=== PATIENT | male | born 1955 | race Caucasian/White ===

== ENCOUNTER 2016-07-20 11:52 | Emergency (ER) | payer OTHER ==
--- NOTE | 2016-07-20 13:59 | ED ---
Upper Extremity HPI - General Chief Complaint: Extremity Injury, Upper Stated Complaint: Shoulder Injury IHS Time Seen by Provider: 07/20/16 13:39 Source: patient Mode of arrival: ambulatory Limitations: no limitations - History of Present Illness Initial Comments: Patient is a 61-year-old male with a chief complaint of right hand paralysis after an injury on Monday. 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 Patient reports that after that his hand started to become progressively tingling and he feels he is not able to flex or extend his wrist or make a fist with his hand. He states that his right hand does feel slightly colder his left. He reports that he is left- handed. He states that the pain is currently a 1 out of 10. He reports that he is able to feel everything over his hand. He can feel light touch, As well as pain. He denies any other symptoms and relates this hand paralysis directly to his injury with the truck gonsales. He states he is able to abduct shoulder and has full range of motion of elbow. - Related Data Home Medications Medication Instructions Recorded Confirmed Glimepiride [Amaryl] 2 mg PO DAILY 07/20/16 07/20/16 metFORMIN HCL [Glucophage] 500 mg PO DAILY 07/20/16 07/20/16 Allergies Allergy/AdvReac Type Severity Reaction Status Date / Time No Known Allergies Allergy Verified 07/20/16 12:16 Review of Systems ROS Statement: Those systems with pertinent positive or pertinent negative responses have been documented in the HPI. ROS Other: All systems not noted in ROS Statement are negative. Past Medical History Past Medical History: Diabetes Mellitus History of Any Multi-Drug Resistant Organisms: None Reported Past Surgical History: No Surgical Hx Reported Past Psychological History: No Psychological Hx Reported Smoking Status: Current every day smoker Past Alcohol Use History: Occasional Past Drug Use History: None Reported General Exam - General Exam Comments Initial Comments: Pleasant well appearing 61 year old male. no distress. Limitations: no limitations General appearance: alert, in no apparent distress Head exam: Present: atraumatic, normocephalic, normal inspection Eye exam: Present: normal appearance, PERRL, EOMI. Absent: scleral icterus, conjunctival injection, periorbital swelling ENT exam: Present: normal exam, normal oropharynx, mucous membranes moist Neck exam: Present: normal inspection. Absent: tenderness, meningismus, lymphadenopathy Respiratory exam: Present: normal lung sounds bilaterally. Absent: respiratory distress, wheezes, rales, rhonchi, stridor Cardiovascular Exam: Present: regular rate, normal rhythm, normal heart sounds. Absent: systolic murmur, diastolic murmur, rubs, gallop, clicks GI/Abdominal exam: Present: soft, normal bowel sounds. Absent: distended, tenderness, guarding, rebound, rigid Extremities exam: Present: normal inspection, normal capillary refill. Absent: tenderness, pedal edema, joint swelling, calf tenderness Right Upper Arm exam: Present: normal inspection, full ROM Elbow exam: Present: normal inspection, full ROM Forearm Wrist exam: Present: normal inspection. Absent: full ROM (patient denies flexion and extension of elbow. ) Hand Wrist exam: Present: normal inspection. Absent: full ROM (Patient does not have any range of motion or souvenir and novelty maker strength. He does have sensation to light touch and ) Neuro motor exam: Present: other (Able to elicit tricep DTR and brachioradialis DTR. ). Absent: wrist extension intact, thumb opposition intact, thumb IP flexion intact, thumb adduction intact, fingers 2-5 abduction intact Vascular: Present: normal capillary refill Back exam: Present: normal inspection Neurological exam: Present: alert, oriented X3, CN II-XII intact Expanded Patient oriented to: Present: person, place, time Speech: Present: fluid speech Cranial nerves: EOM's Intact: Normal, Gag Reflex: Normal, Tongue Deviation: Normal, Facial Sensation: Normal Cerebellar function: Finger to Nose: Normal Upper motor neuron: Pronator Drift: Normal Motor strength exam: RUE: 4 (Patient has bicep 4/5 bicep strength, 5/5 tricep strength. 0/5 souvenir and novelty maker strengh ), LUE: 5, RLE: 5, LLE: 5 DTR: Bicep (R): 2+, Brachioradialis (R): 2+, Tricep (R): 2+ Eye Response: (4) open spontaneously Motor Response: (6) obeys commands Verbal Response: (5) oriented [place] Total: 15 Psychiatric exam: Present: normal affect, normal mood Skin exam: Present: warm, dry, intact, normal color. Absent: rash Course Vital Signs 03/15/17 03/15/17 12:13 14:39 Temperature 98.3 F 98.0 F Pulse Rate 96 91 Respiratory 16 18 Rate Blood Pressure 132/63 121/65 O2 Sat by Pulse 99 100 Oximetry Medical Decision Making - Medical Decision Making Patient is a 61-year-old male with a chief complaint of right hand paralysis after an injury on Monday. 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 Patient reports that after that his hand started to become progressively tingling and he feels he is not able to flex or extend his wrist or make a fist with his hand. He states that his right hand does feel slightly colder his left. He reports that he is left- handed. He states that the pain is currently a 1 out of 10. He reports that he is able to feel everything over his hand. He can feel light touch, As well as pain. Patient case discussed with Dr. Cifuentes, whom did a face to face interview with the patient. He has no other neurological deficits besides the hand paralysis. I discussed the case with PAMarina. She discussed with Dr. Kingston and they recommend the patient be placed in a volar splint and will see the patient in the morning. Given patients duration of symptoms for 3 days with no other deficits it is likely to be related to the shoulder injury. He agains denies any headache or other complaints and the hand paralysis occured directly after the gonsales fell on his hand. Patient placed in volar splint and advised to have close follow up with orthopedic tomorrow morning. Patient understands treatment plan and will comply. - Radiology Data Radiology results: report reviewed Neck has loss of lordosis, and to colorlate with muscle spasm. Shoulder xray shows calcified tendonopathy. no fracture or dislocation. Disposition Clinical Impression: Paralysis of right hand, Brachial plexus injury Disposition: HOME SELF-CARE Condition: Good Additional Instructions: Patient advised to follow-up with Dr. Cruz on or possibly Dr. Kingston on Monday. Call as soon as possible to make an appointment. Patient denies a take Motrin for irritation. Return to emergency department if any alarming signs or symptoms occur. Referrals: Anthony Nelson MD [Primary Care Provider] - 1-2 days Darrell Cruz MD [STAFF PHYSICIAN] - 1-2 days Rema Kingston DO [Doctor of Osteopathic Medicine] - 1-2 days Time of Disposition: 15:33
--- NOTE | 2016-07-20 14:17 | XR ---
EXAMINATION TYPE: XR shoulder complete RT DATE OF EXAM: 07/20/2016 2:11 PM COMPARISON: NONE HISTORY: Pain TECHNIQUE: Three views are submitted. FINDINGS: The osseous structures are intact. There is no acute fracture or dislocation. The AC joint is mildl y narrowed. There is diffuse osteopenia. Calcification along the greater tuberosity noted. IMPRESSION: 1. Mild AC joint arthropathy. 2. Correlate for calcific tendinosis.
--- NOTE | 2016-07-20 14:22 | XR ---
Cervical spine HISTORY: Neck and right shoulder pain 4 views of the cervical spine No comparisons Cervical vertebral bodies show preserved height, alignment, and bone mineralization. Disc spaces are maintained. Loss of lordosis is noted which may be due to muscle spasm. Prevertebral soft tissues are normal. Calcifications within the soft tissues possibly indicative carotid artery calcifications on the left. There is loss of disc height at C6-7 with associated spondylosis. The patient is edentulous . IMPRESSION: Degenerative disc disease, loss of lordosis may be due to muscle spasm.
[2016-07-20 14:40] VITALS: BP 121/65; PULSE 91; RESP 18; TEMP 98
== END 2016-07-20 15:36 | disposition home or self-care (01) ==
LOC: EC 11:52
DX: S14.3XXA Injury of brachial plexus, initial encounter (principal); S64.91XA Injury of unspecified nerve at wrist and hand level of right arm, initial encounter; E11.9 Type 2 diabetes mellitus without complications; F17.200 Nicotine dependence, unspecified, uncomplicated; Z79.84 Long term (current) use of oral hypoglycemic drugs; Z79.899 Other long term (current) drug therapy; W20.8XXA Other cause of strike by thrown, projected or falling object, initial encounter
CPT/HCPCS: 29125; 72040; 99283

== ENCOUNTER 2016-07-24 12:29 | Inpatient (IN) | payer OTHER ==
[2016-07-24] MEDS ORDERED: SODIUM CHLORIDE 0.9% 1,000 ML IV STA ×4 (13:52→15:45)
[2016-07-24] MEDS ORDERED: SODIUM CHLORIDE 0.9% 500 ML IV STA ×2 (13:52→15:45)
--- NOTE | 2016-07-24 14:01 | ED ---
General Adult HPI - General Chief complaint: Dizziness Stated complaint: MIGHT BE HAVING A REACTION TO MEDS Time Seen by Provider: 07/24/16 13:16 Source: patient, family Mode of arrival: wheelchair Limitations: no limitations - History of Present Illness Initial comments: This is a 61-year-old male here for evaluation of dizziness. Dizziness and falls. Patient medical history consistent for diabetes occasional streaks drinking and smoking. Patient coming in with episodes of dizziness that lead to falls, about 8 times in the last 2 days. He has hit his head. No loss of consciousness. Patient complains of headache and fatigue this point right now. Patient recently had shoulder injury right shoulder injury as he dropped a car that on his right shoulder was started on prednisone, symptoms seem to be around the same time. Patient did start but is Monday stopped taking it on Monday. Patient still feels dizzy at this time, he states during activity or driving walking the room starts to spin around and he collapsed to the ground. - Related Data Home Medications Medication Instructions Recorded Confirmed Glimepiride [Amaryl] 2 mg PO DAILY 07/20/16 07/24/16 metFORMIN HCL [Glucophage] 500 mg PO BID 07/20/16 07/24/16 Ibuprofen [Motrin] 800 mg PO Q6H PRN 07/24/16 07/24/16 Allergies Allergy/AdvReac Type Severity Reaction Status Date / Time No Known Allergies Allergy Verified 07/24/16 13:08 Review of Systems ROS Statement: Those systems with pertinent positive or pertinent negative responses have been documented in the HPI. ROS Other: All systems not noted in ROS Statement are negative. Past Medical History Past Medical History: Diabetes Mellitus History of Any Multi-Drug Resistant Organisms: None Reported Past Surgical History: No Surgical Hx Reported Past Psychological History: No Psychological Hx Reported Smoking Status: Current every day smoker Past Alcohol Use History: Occasional Past Drug Use History: None Reported General Exam - General Exam Comments Initial Comments: NIH of 0, no nystagmus Limitations: no limitations General appearance: alert, in no apparent distress Head exam: Present: atraumatic, normocephalic, normal inspection Eye exam: Present: normal appearance, PERRL, EOMI. Absent: scleral icterus, conjunctival injection, periorbital swelling ENT exam: Present: normal exam, mucous membranes moist Neck exam: Present: normal inspection. Absent: tenderness, meningismus, lymphadenopathy Respiratory exam: Present: normal lung sounds bilaterally. Absent: respiratory distress, wheezes, rales, rhonchi, stridor Cardiovascular Exam: Present: regular rate, normal rhythm, normal heart sounds. Absent: systolic murmur, diastolic murmur, rubs, gallop, clicks GI/Abdominal exam: Present: soft, normal bowel sounds. Absent: distended, tenderness, guarding, rebound, rigid Extremities exam: Present: normal inspection, full ROM, normal capillary refill. Absent: tenderness, pedal edema, joint swelling, calf tenderness Back exam: Present: normal inspection Neurological exam: Present: alert, oriented X3, CN II-XII intact Psychiatric exam: Present: normal affect, normal mood Skin exam: Present: warm, dry, intact, normal color. Absent: rash Course Vital Signs 07/24/16 12:43 Temperature 98.2 F Pulse Rate 103 H Respiratory 16 Rate Blood Pressure 116/69 O2 Sat by Pulse 98 Oximetry - Reevaluation(s) Reevaluation #1: 07/24/16 15:48 Patient remains without focal neurological deficit EKG Findings - EKG Comments: EKG Findings:: EKG shows normal sinus rhythm rate of 83, [place] 218, QRS 114, QTc 420 Medical Decision Making - Medical Decision Making 61 mailed ER for evaluation of chronic falls dizziness worse with ambulation. Patient recently was on steroids, unknown if is medication reaction the patient does have positive CT finding of CVA, patient will be admitted for neurological evaluation regarding possible CVA or age of CVA. He also is dehydrated with high blood sugar, will resuscitate with IV fluids - Lab Data Result diagrams: 07/24/16 14:26 07/24/16 14:26 Lab Results 07/24/16 07/24/16 07/24/16 Range/Units 14:26 14:26 14:26 WBC 9.1 (3.8-10.6) k/uL RBC 4.91 (4.30-5.90) m/uL Hgb 15.7 (13.0-17.5) gm/dL Hct 45.0 (39.0-53.0) % MCV 91.6 (80.0-100.0) fL MCH 31.9 (25.0-35.0) pg MCHC 34.8 (31.0-37.0) g/dL RDW 13.5 (11.5-15.5) % Plt Count 283 (150-450) k/uL Neutrophils % 65 % Lymphocytes % 25 % Monocytes % 5 % Eosinophils % 2 % Basophils % 2 % Neutrophils # 5.9 (1.3-7.7) k/uL Lymphocytes # 2.3 (1.0-4.8) k/uL Monocytes # 0.5 (0-1.0) k/uL Eosinophils # 0.2 (0-0.7) k/uL Basophils # 0.2 (0-0.2) k/uL PT (9.0-12.0) sec INR (<1.1) APTT (22.0-30.0) sec D-Dimer (<0.60) mg/L FEU Sodium 138 (137-145) mmol/L Potassium 5.1 (3.5-5.1) mmol/L Chloride 101 (98-107) mmol/L Carbon Dioxide 27 (22-30) mmol/L Anion Gap 10 mmol/L BUN 23 H (9-20) mg/dL Creatinine 0.70 (0.66-1.25) mg/dL Est GFR (MDRD) Af Amer >60 (>60 ml/min/1.73 sqM) Est GFR (MDRD) Non-Af >60 (>60 ml/min/1.73 sqM) Glucose 376 H (74-99) mg/dL Plasma Lactic Acid Scout (0.7-2.0) mmol/L Calcium 10.0 (8.4-10.2) mg/dL Phosphorus 3.9 (2.5-4.5) mg/dL Magnesium 1.8 (1.6-2.3) mg/dL Total Bilirubin 0.5 (0.2-1.3) mg/dL AST 9 L (17-59) U/L ALT 25 (21-72) U/L Alkaline Phosphatase 165 H (38-126) U/L Total Creatine Kinase <20 L (55-170) U/L CK-MB (CK-2) 0.5 (0.0-2.4) ng/mL CK-MB (CK-2) Rel Index 0.0 Troponin I <0.012 (0.000-0.034) ng/mL Total Protein 7.0 (6.3-8.2) g/dL Albumin 3.9 (3.5-5.0) g/dL 07/24/16 07/24/16 Range/Units 14:26 14:26 WBC (3.8-10.6) k/uL RBC (4.30-5.90) m/uL Hgb (13.0-17.5) gm/dL Hct (39.0-53.0) % MCV (80.0-100.0) fL MCH (25.0-35.0) pg MCHC (31.0-37.0) g/dL RDW (11.5-15.5) % Plt Count (150-450) k/uL Neutrophils % % Lymphocytes % % Monocytes % % Eosinophils % % Basophils % % Neutrophils # (1.3-7.7) k/uL Lymphocytes # (1.0-4.8) k/uL Monocytes # (0-1.0) k/uL Eosinophils # (0-0.7) k/uL Basophils # (0-0.2) k/uL PT 10.3 (9.0-12.0) sec INR 1.0 (<1.1) APTT 24.4 (22.0-30.0) sec D-Dimer 0.19 (<0.60) mg/L FEU Sodium (137-145) mmol/L Potassium (3.5-5.1) mmol/L Chloride (98-107) mmol/L Carbon Dioxide (22-30) mmol/L Anion Gap mmol/L BUN (9-20) mg/dL Creatinine (0.66-1.25) mg/dL Est GFR (MDRD) Af Amer (>60 ml/min/1.73 sqM) Est GFR (MDRD) Non-Af (>60 ml/min/1.73 sqM) Glucose (74-99) mg/dL Plasma Lactic Acid Scout 1.6 (0.7-2.0) mmol/L Calcium (8.4-10.2) mg/dL Phosphorus (2.5-4.5) mg/dL Magnesium (1.6-2.3) mg/dL Total Bilirubin (0.2-1.3) mg/dL AST (17-59) U/L ALT (21-72) U/L Alkaline Phosphatase (38-126) U/L Total Creatine Kinase (55-170) U/L CK-MB (CK-2) (0.0-2.4) ng/mL CK-MB (CK-2) Rel Index Troponin I (0.000-0.034) ng/mL Total Protein (6.3-8.2) g/dL Albumin (3.5-5.0) g/dL - Radiology Data Radiology results: report reviewed (CT brain does show positive CVA), image reviewed Disposition Clinical Impression: Dehydration, Hyperglycemia, Falls, Medication reaction, CVA (cerebral vascular accident) Narrative: CVA of indeterminate age Disposition: ADMITTED IP TO THIS HOSP Condition: Fair Referrals: Anthony Nelson MD [Primary Care Provider] - 1-2 days
[2016-07-24 14:41] LABS: Basophils # (A) 0.2 k/uL (0-0.2); Basophils % (A) 2 %; CH 33.2; CHCM 36.4; Eosinophils # (A) 0.2 k/uL (0-0.7); Eosinophils % (A) 2 %; HDW 2.94; HGB 15.7 gm/dL (13.0-17.5); Luc # (Auto) 0.15; Luc % (Auto) 2; Lymphocytes # (A) 2.3 k/uL (1.0-4.8); Lymphocytes % (A) 25 %; MCH 31.9 pg (25.0-35.0); MCHC 34.8 g/dL (31.0-37.0); MCV 91.6 fL (80.0-100.0); Mean Platelet Volume 8.3; Monocytes # (A) 0.5 k/uL (0-1.0); Monocytes % (A) 5 %; Neutrophils # (A) 5.9 k/uL (1.3-7.7); Neutrophils % (A) 65 %; RBC 4.91 m/uL (4.30-5.90); RDW 13.5 % (11.5-15.5); WBC 9.1 k/uL (3.8-10.6); WBC (Perox) 8.88
[2016-07-24 14:55] LABS: ALT 25 U/L (21-72); AST 9 U/L (17-59); Alkaline Phosphatase 165 U/L (38-126); Anion Gap 10 mmol/L; Blood Urea Nitrogen 23 mg/dL (9-20); Carbon Dioxide 27 mmol/L (22-30); Chloride 101 mmol/L (98-107); Glucose 376 mg/dL (74-99); Magnesium 1.8 mg/dL (1.6-2.3); Non-African American GFR(MDRD) >60 (>60 ml/min/1.73 sqM); Partial Thromboplastin Time 24.4 sec (22.0-30.0); Phosphorous 3.9 mg/dL (2.5-4.5); Potassium 5.1 mmol/L (3.5-5.1); Prothrombin Time 10.3 sec (9.0-12.0); Sodium 138 mmol/L (137-145); Total Bilirubin 0.5 mg/dL (0.2-1.3)
[2016-07-24 15:02] LABS: Creatine Kinase <20 U/L (55-170)
[2016-07-24 15:16] LABS: Creatine Kinase MB 0.5 ng/mL (0.0-2.4); Troponin I <0.012 ng/mL (0.000-0.034)
--- NOTE | 2016-07-24 15:32 | CT ---
EXAMINATION TYPE: CT brain wo con DATE OF EXAM: 07/24/2016 3:18 PM HISTORY: Weakness and Syncopal episode CT DLP: 1165 mGycm. Automated Exposure Control for Dose Reduction was Utilized. TECHNIQUE: CT scan of the head is performed without contrast. COMPARISON: None. FINDINGS: There is no acute intracranial hemorrhage or midline shift identified. There is diffuse v entricular and sulcal prominence consistent with diffuse age-related cerebral atrophy. There is low- attenuation in the periventricular white matter consistent with chronic small vessel ischemic change. There is more vague focal area of low-attenuation high left frontal parietal region on axial image 43 and coronal image 38 consistent with age-indeterminate infarct. There is moderate mucosal thickeni ng and patchy opacification in the bilateral maxillary sinuses. There is mild mucosal thickening invo lving ethmoid sinuses bilaterally. The globes are intact bilaterally. IMPRESSION: 1. No acute intracranial hemorrhage or midline shift. 2. There is mild diffuse age-related cerebral atrophy and mild to moderate chronic small vessel ische guido change noted. 3. Age-indeterminate infarct high left frontoparietal region in which acute/subacute ischemia cannot be excluded. Correlation with old outside study advised. 4. Acute on chronic paranasal sinus disease as noted above.
[2016-07-24] MEDS ORDERED: ASPIRIN 325 MG TAB PO STA (15:44)
[2016-07-24] MEDS ORDERED: IPRATROPIUM-ALBUTEROL 3 ML NEB INHALATION PRN (15:45)
[2016-07-24 15:48] LABS: Appearance,Urine Clear (Clear); Bilirubin,Urine Negative (Negative); Glucose,Urine (UA) 4+ (Negative); Ketones,Urine Negative (Negative); Leukocyte Esterase,Urine Negative (Negative); Nitrite,Urine Negative (Negative); Protein,Urine Negative (Negative); UA Billing (MACRO vs. MICRO) CHEM; Urobilinogen,Urine <2.0 mg/dL (<2.0)
[2016-07-24] MEDS ORDERED: INSULIN LISPRO (humaLOG) 300 UNIT/3 ML VIAL SQ SCH (17:30)
[2016-07-24 17:55] LABS: Glucose,Whole Blood 258 mg/dL (75-99)
[2016-07-24] MEDS ORDERED: ALPRAZolam 0.25 MG TAB PO PRN (19:31)
[2016-07-24] MEDS ORDERED: HYDROcodone/APAP 5-325MG 1 EACH TAB PO PRN (19:31)
--- NOTE | 2016-07-24 19:31 | US ---
EXAMINATION TYPE: US carotid duplex BILAT DATE OF EXAM: 07/24/2016 4:31 PM COMPARISON: NONE CLINICAL HISTORY: Stenosis. dizziness EXAM MEASUREMENTS: RIGHT: Peak Systolic Velocity (PSV) cm/sec ----- Right CCA: 58.4 ----- Right ICA: 52.6 ----- Right ECA: 109.9 ICA/CCA ratio: 0.9 RIGHT: End Diastole cm/sec ----- Right CCA: 13.0 ----- Right ICA: 17.0 ----- Right ECA: 12.8 LEFT: Peak Systolic Velocity (PSV) cm/sec ----- Left CCA: 73.5 ----- Left ICA: 59.2 ----- Left ECA: 95.6 ICA/CCA ratio: 0.8 LEFT: End Diastole cm/sec ----- Left CCA: 16.4 ----- Left ICA: 20.8 ----- Left ECA: 11.5 VERTEBRALS (direction of flow): Right Vertebral: Antegrade Left Vertebral: Antegrade TECHNOLOGIST IMPRESSION: No significant stenosis seen, no elevated velocities, Grayscale images show some intimal hyperplasia bilaterally. No significant focal plaque is seen. IMPRESSION: No hemodynamically significant stenosis is seen in either internal carotid artery.
[2016-07-24] MEDS: NICOTINE 14MG/24HR PATCH TRANSDERM SCH (20:50)
[2016-07-24 21:27] LABS: Glucose,Whole Blood 362 mg/dL (75-99)
[2016-07-24] MEDS: HEPARIN SODIUM,PORCINE 5,000 UNIT/ML 1 ML VIAL SQ SCH (22:29)
[2016-07-24] MEDS: ATORVASTATIN 80 MG TAB PO SCH (22:30)
[2016-07-24] MEDS: PANTOPRAZOLE 40 MG TABLET PO SCH (22:30)
[2016-07-24] MEDS: MELATONIN 3 MG TABLET PO SCH (22:30)
[2016-07-24] MEDS: INSULIN LISPRO (humaLOG) 300 UNIT/3 ML VIAL SQ SCH (22:31)
[2016-07-25 06:00] LABS: Glucose,Whole Blood 175 mg/dL (75-99)
[2016-07-25] MEDS: PANTOPRAZOLE 40 MG TABLET PO SCH (06:42)
[2016-07-25] MEDS: INSULIN LISPRO (humaLOG) 300 UNIT/3 ML VIAL SQ SCH ×4 (06:42→22:19)
[2016-07-25 07:09] LABS: Basophils # (A) 0.1 k/uL (0-0.2); Basophils % (A) 1 %; CH 32.6; CHCM 35.6; Eosinophils # (A) 0.2 k/uL (0-0.7); Eosinophils % (A) 3 %; HCT 41.3 % (39.0-53.0); HDW 3.02; Luc % (Auto) 3; Lymphocytes # (A) 3.5 k/uL (1.0-4.8); Lymphocytes % (A) 48 %; MCH 31.2 pg (25.0-35.0); MCHC 33.8 g/dL (31.0-37.0); MCV 92.2 fL (80.0-100.0); Mean Platelet Volume 7.3; Monocytes # (A) 0.4 k/uL (0-1.0); Monocytes % (A) 5 %; Neutrophils # (A) 2.9 k/uL (1.3-7.7); Neutrophils % (A) 40 %; RBC 4.48 m/uL (4.30-5.90); RDW 13.4 % (11.5-15.5); WBC 7.2 k/uL (3.8-10.6); WBC (Perox) 7.52
[2016-07-25 07:26] LABS: Anion Gap 6 mmol/L; Blood Urea Nitrogen 15 mg/dL (9-20); Calcium 8.7 mg/dL (8.4-10.2); Carbon Dioxide 26 mmol/L (22-30); Chloride 105 mmol/L (98-107); Cholesterol 179 mg/dL (<200); Glucose 184 mg/dL (74-99); HDL Cholesterol 33 mg/dL (40-60); Non-African American GFR(MDRD) >60 (>60 ml/min/1.73 sqM); Potassium 4.2 mmol/L (3.5-5.1); Sodium 137 mmol/L (137-145); Triglycerides 247 mg/dL (<150)
[2016-07-25 08:45] LABS: Hemoglobin A1C 10.1 % (4.2-6.1)
[2016-07-25] MEDS: MULTIVITAMINS, THERA 1 EACH TAB PO SCH (10:41)
[2016-07-25] MEDS: HEPARIN SODIUM,PORCINE 5,000 UNIT/ML 1 ML VIAL SQ SCH ×2 (10:41→22:19)
[2016-07-25] MEDS: NICOTINE 14MG/24HR PATCH TRANSDERM SCH (10:41)
[2016-07-25] MEDS: ASPIRIN 325 MG TAB PO SCH (10:44)
--- NOTE | 2016-07-25 11:06 | ECHOF ---
Referral Reason:[facility] MEASUREMENTS -------- HEIGHT: 182.9 cm WEIGHT: 68.5 kg BP: RVIDd: 2.8 cm (< 3.3) IVSd: 1.0 cm (0.6 - 1.1) LVIDd: 4.8 cm (3.9 - 5.3) LVPWd: 1.0 cm (0.6 - 1.1) IVSs: 1.2 cm LVIDs: 3.7 cm LVPWs: 1.5 cm LA Diam: 3.5 cm (2.7 - 3.8) Ao Diam: 3.0 cm (2.0 - 3.7) AV Cusp: 2.0 cm (1.5 - 2.6) LA Diam: 3.9 cm (2.7 - 3.8) MV EXCURSION: 22.560 mm (> 18.000) MV EF SLOPE: 88 mm/s (70 - 150) EPSS: 1.1 cm MV E Héctor: 0.48 m/s MV DecT: 150 ms MV A Héctor: 0.68 m/s MV E/A Ratio: 0.70 RAP: 5.00 mmHg RVSP: 13.38 mmHg FINDINGS -------- Sinus rhythm. This was a technically adequate study. There is mild concentric left ventricular hypertrophy. Overall left ventricular systolic function is mildly impaired with, an EF between 45 - 50 %. Anterseptal Hypokinesis Septal Hypokinesis The right ventricle is normal in size. The left atrial size is normal. The right atrial size is normal. There is mild aortic valve sclerosis. There is no evidence of aortic regurgitation. The mitral valve leaflets are mildly thickened. Mild mitral regurgitation is present. Mild tricuspid regurgitation present. There is no evidence of pulmonary hypertension. The right ventricular systolic pressure, as measured by Doppler, is 13.38mmHg. There is no pulmonic regurgitation present. The aortic root size is normal. There is no pericardial effusion. CONCLUSIONS -------- 1. There is mild concentric left ventricular hypertrophy. 2. The right ventricular systolic pressure, as measured by Doppler, is 13.38mmHg. 3. Overall left ventricular systolic function is mildly impaired with, an EF between 45 - 50 %. 4. Anterseptal Hypokinesis 5. Septal Hypokinesis 6. There is mild aortic valve sclerosis. 7. The mitral valve leaflets are mildly thickened. 8. Mild mitral regurgitation is present. 9. Mild tricuspid regurgitation present. 10. There is no evidence of pulmonary hypertension. MEASUREMENT OPERATOR: Arlen Bear RDCS
[2016-07-25 12:01] LABS: Glucose,Whole Blood 260 mg/dL (75-99)
[2016-07-25 15:07] VITALS: BMI 20.6
--- NOTE | 2016-07-25 16:35 | HP ---
DATE OF ADMISSION: 07/24/2016 CHIEF COMPLAINT: Difficulty in walking and falling and weakness on right side. HISTORY OF PRESENT ILLNESS: This 61-year-old gentleman with a past medical history of multiple medical problems, including diabetes type 2, history of nicotine dependence being followed by Dr. Nelson in the outpatient setting. 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 The patient came to the ER and subsequently evaluated by [facility]. The patient was receiving p.o. steroids. Today the family noted that the patient is feeling dizzy and patient had falls and apparently the patient fell eight times in the last 2 days. The patient taken to [facility] and admitted to the hospital for further evaluation and treatment. The family also noted some change in mental status and a CAT scan of the brain was noted which showed age related atrophy and age indeterminate infarct in the high left frontoparietal region with acute, subacute ischemia, acute on chronic paranasal sinus is also noted. The patient is slightly dysarthric and unable to give coherent history. Most of the history taken from my discussion with staff and review of the chart and as well as discussion with the family and significant other at bedside. PAST MEDICAL HISTORY: History of diabetes mellitus, History of nicotine dependence. Medications are: 1. Metformin 500 mg b.i.d. 2. Motrin 800 mg q.6h p.r.n. 3. Amaryl 2 mg daily. ALLERGIES: None. FAMILY HISTORY: No history of heart disease or strokes in the family. SOCIAL HISTORY: History of smoking. Continued ongoing. Occasional alcohol intake. REVIEW OF SYSTEMS: Cannot be taken because of change in mental status completely. PHYSICAL EXAM: Patient is conscious, but slightly confused. Oriented x2. Pulse is 83, blood pressure 141/79, respirations 18, temperature 97.1, pulse ox 96% on room air. HEENT: Conjunctivae normal. Oral mucosa moist. NECK: No jugular venous distention. No carotid bruit. No lymph node enlargement. CARDIOVASCULAR: S1, S2 muffled. No S3, no S4. RESPIRATORY: Breath sounds diminished at the bases. A few scattered rhonchi, no crackles. ABDOMEN: Soft, nontender. No mass palpable. No hepatosplenomegaly. Legs: No edema, no swelling. Nervous system: Higher function as mentioned. Cranial nerves II through XII grossly intact. Eye movements are sluggish rather. Otherwise, motor and sensory power is grade upper limits grade 0 and right lower limb grade 3 to 4. Reflexes are diminished. Otherwise gait could not be tested. No sensory abnormalities. SKIN: Examination of the skin no ulcer, rash or bleeding. LYMPHATICS: No lymph nodes palpable in the neck, axillae or groin. JOINTS: No active deforming arthropathy. LABORATORY INVESTIGATION: At this time, CBC within normal limits. Otherwise glucose 376. Hemoglobin A1c is not available. Alkaline phosphatase 165. ASSESSMENT: 1. Acute right-sided hemiplegia caused by left hemispheric stroke in the left frontotemporal region. 2. History of nicotine dependence. 3. Type 2 diabetes mellitus. 4. Increased alkaline phosphatase. 5. Dysarthria secondary to stroke. 6. Gait dysfunction secondary to stroke. 7. Continued ongoing nicotine dependence. 8. FULL CODE. RECOMMENDATIONS AND DISCUSSION: In this 61-year-old gentleman who presented with multiple complex medical issues, we will monitor the patient closely. Continue current medications. Continue symptomatic treatment. We will initiate antiplatelet agents and Lipitor. Otherwise, I would also recommend complete neurovascular workup. Neurology evaluation. PT/OT evaluation. Possible ECF rehab. Prognosis is extremely guarded because of multiple complex medical issues, we will monitor diabetes also. Otherwise discussed with the family who understands and agrees. Further recommendations to follow. A copy of dictation is being forwarded to Dr. Nelson who is the primary care physician.
--- NOTE | 2016-07-25 17:47 | MR ---
EXAMINATION TYPE: MR brain wo/w con DATE OF EXAM: 07/25/2016 5:09 PM COMPARISON: NONE HISTORY: Dizziness, Rt arm numbness CONTRAST: Standard multiplanar, multisequence MRI departmental protocol utilizing 14 mL intravenous MultiHance gadolinium contrast. FINDINGS: There is a 3 x 2 cm gyriform area of increased signal on the FLAIR images in the left parie mervin lobe. There are similar multiple other cortical areas of increased signal in the parietal lobes b ilaterally that measure up to 1.5 cm. There are numerous abnormal high signal foci in the periventric ular white matter. There is no midline shift. There is bilateral involvement of the corpus callosum. The brainstem is intact. There is extensive mucosal thickening in the maxillary ethmoid and frontal s inuses. The contrast images show no pathologic enhancement. There is a 4 mm focus of increased signal in the white matter left anterior temporal lobe and also right anterior temporal lobe. IMPRESSION: Numerous high signal lesions involving the naranjo and white matter of both cerebral hemispheres. I woul d consider a combination of cortical infarcts as well as demyelinating disease and chronic small vess el ischemia. CT scan yesterday shows ischemic changes in the left parietal lobe similar to the findin gs on this exam. Sinusitis. It is unclear if there is a new cortical infarct compared to CT scan yesterday.
[2016-07-25 17:57] LABS: Glucose,Whole Blood 240 mg/dL (75-99)
--- NOTE | 2016-07-25 18:34 | P.PN ---
Subjective Date of service 07/25/2016 Progress note being dictated for Dr. Dixon. Interval history: This is 61-year-old gentleman admitted with acute-subacute right-sided hemiplegia caused by a left hemispheric CVA in the left frontotemporal region in a patient with continued ongoing nicotine dependence and multiple other medical issues. Echo reports Anterseptal, Septal hypokinesis with mildly impaired LV function, EF 45 to 50 %. MRI pending. Carotid Doppler reporting no hemodynamic significant stenosis. Denies chest pain, palpitations or increasing shortness of breath. Remains dysarthric. Review systems unable to obtain as patient dysarthric, with change in mental status. Active Medications Hydrocodone Bitart/Acetaminophen ([place] 5-325) 1 each PO Q6HR PRN PRN Reason: Pain Albuterol/Ipratropium (Duoneb 0.5 Mg-3 Mg/3 Ml Soln) 3 ml INHALATION RT-QID PRN PRN Reason: Shortness Of Breath Or Wheezing Alprazolam (Xanax) 0.25 mg PO TID PRN PRN Reason: Anxiety Aspirin (Aspirin) 325 mg PO DAILY [facility] Last Admin: 07/25/16 10:44 Dose: 325 mg Atorvastatin Calcium (Lipitor) 80 mg PO HS [facility] Last Admin: 07/24/16 22:30 Dose: 80 mg Heparin Sodium (Porcine) (Heparin) 5,000 unit SQ Q12HR [facility] Last Admin: 07/25/16 10:41 Dose: 5,000 unit Insulin Human Lispro (Humalog) 0 unit SQ ACHS [facility] PRN Reason: Protocol Last Admin: 07/25/16 17:47 Dose: 3 unit Melatonin (Melatonin) 3 mg PO HS [facility] Last Admin: 07/24/16 22:30 Dose: 3 mg Multivitamins (Theragran) 1 each PO DAILY@1200 [facility] Last Admin: 07/25/16 10:41 Dose: 1 each Nicotine (Habitrol 14mg/24hr Patch) 1 patch TRANSDERM DAILY [facility] Last Admin: 07/25/16 10:41 Dose: 1 patch Pantoprazole Sodium (Protonix) 40 mg PO AC-BRKFST [facility] Last Admin: 07/25/16 06:42 Dose: 40 mg Objective - Vital Signs Vital signs: Vital Signs Temp 98.1 F 07/25/16 12:00 Pulse 78 07/25/16 12:00 Resp 18 07/25/16 12:00 BP 129/65 07/25/16 12:00 Pulse Ox 100 07/25/16 12:00 Intake & Output 07/24/16 07/25/16 07/25/16 18:59 06:59 18:59 Intake Total 220 615 Balance 220 615 Weight 68.039 kg 68.9 kg 68.9 kg Intake: IV 615 Sodium Chloride 0.9% 1, 615 000 ml @ 100 mls/hr IV . Q10H [facility] Rx#:[id number] Intake, IV Titration 100 Amount Sodium Chloride 0.9% 1, 100 000 ml @ 100 mls/hr IV . Q10H [facility] Rx#:[id number] Oral 120 - Exam PHYSICAL EXAM: VITAL SIGNS: [As above] GENERAL: [Sitting up in bed, mildly confused] HEENT: [Pupils equal conjunctiva normal, right facial droop.] NECK: [Supple, no JVD] RESPIRATORY EFFORT:[] Normal LUNGS: [Bilateral bases diminished, occasional scattered rhonchi, no crackles, no wheezing] CARDIOVASCULAR[regular S1 and S2, no edema] GI: [Abdomen soft, nontender, positive bowel sounds.] PSYCH: [Alert and oriented -2, mood and affect normal.] NEURO: Cranial nerves II through XII grossly intact, mild right facial droop, dysarthric, right upper extremity flaccid-grade 0, right lower extremity grade 3. - Labs CBC & Chem 7: 07/25/16 06:32 07/25/16 06:30 Labs: Abnormal Lab Results - Last 24 Hours (Table) 07/24/16 07/25/16 07/25/16 Range/Units 21:24 05:58 06:30 Creatinine 0.63 L (0.66-1.25) mg/dL Glucose 184 H (74-99) mg/dL POC Glucose (mg/dL) 362 H 175 H (75-99) mg/dL Triglycerides 247 H (<150) mg/dL HDL Cholesterol 33 L (40-60) mg/dL 07/25/16 07/25/16 Range/Units 12:00 17:44 Creatinine (0.66-1.25) mg/dL Glucose (74-99) mg/dL POC Glucose (mg/dL) 260 H 240 H (75-99) mg/dL Triglycerides (<150) mg/dL HDL Cholesterol (40-60) mg/dL Assessment and Plan Plan: 1. [Acute-subacute right-sided hemiplegia caused by a left hemispheric CVA in the left frontotemporal region]. 2. Continued ongoing nicotine dependence]. 3. [Diabetes mellitus type 2]. 4. [Increased alkaline phosphatase]. 5. [Dysarthria secondary to CVA]. 6. [Gait dysfunction secondary to CVA]. 7. Anterseptal, Septal hypokinesis with mildly impaired LV function, EF 45 to 50 % Plan: Continue on current medication regime, statin, antiplatelets, monitoring and symptomatic treatment. MRI pending. Carotid ultrasound reporting no hemodynamic significant stenosis, patient may need a DUGLAS, will discuss with neurology. Neuro consult in place with recommendations pending.PT/OT. Potential ECF rehab at discharge. Prognosis guarded given multiple complex medical issues. The impression and plan of care has been dictated as directed. : I performed a H&P examination of this patient and discussed the same with the dictator. I agree with the dictator's note. Any additional findings/opinions/ etc. will be noted.
[2016-07-25] MEDS ORDERED: NICOTINE 14MG/24HR PATCH TRANSDERM STA (20:01)
[2016-07-25 21:38] LABS: Glucose,Whole Blood 210 mg/dL (75-99)
[2016-07-25] MEDS: ATORVASTATIN 80 MG TAB PO SCH (22:19)
[2016-07-25] MEDS: MELATONIN 3 MG TABLET PO SCH (22:19)
[2016-07-26 06:27] LABS: Basophils # (A) 0.1 k/uL (0-0.2); Basophils % (A) 1 %; CH 32.8; CHCM 36.5; Eosinophils # (A) 0.2 k/uL (0-0.7); Eosinophils % (A) 2 %; HDW 2.96; HGB 14.5 gm/dL (13.0-17.5); Luc # (Auto) 0.14; Luc % (Auto) 2; Lymphocytes # (A) 2.7 k/uL (1.0-4.8); Lymphocytes % (A) 34 %; MCH 31.1 pg (25.0-35.0); MCHC 34.5 g/dL (31.0-37.0); MCV 90.1 fL (80.0-100.0); Mean Platelet Volume 7.6; Monocytes # (A) 0.4 k/uL (0-1.0); Monocytes % (A) 5 %; Neutrophils # (A) 4.6 k/uL (1.3-7.7); Neutrophils % (A) 56 %; RBC 4.66 m/uL (4.30-5.90); RDW 13.1 % (11.5-15.5); WBC 8.1 k/uL (3.8-10.6); WBC (Perox) 8.37
[2016-07-26 06:32] LABS: Glucose,Whole Blood 260 mg/dL (75-99)
[2016-07-26 06:45] LABS: Anion Gap 9 mmol/L; Blood Urea Nitrogen 15 mg/dL (9-20); Carbon Dioxide 25 mmol/L (22-30); Chloride 101 mmol/L (98-107); Glucose 267 mg/dL (74-99); Non-African American GFR(MDRD) >60 (>60 ml/min/1.73 sqM); Potassium 4.4 mmol/L (3.5-5.1); Sodium 135 mmol/L (137-145)
[2016-07-26] MEDS: PANTOPRAZOLE 40 MG TABLET PO SCH (07:05)
[2016-07-26] MEDS: INSULIN LISPRO (humaLOG) 300 UNIT/3 ML VIAL SQ SCH ×5 (07:05→21:24)
[2016-07-26] MEDS: NICOTINE 14MG/24HR PATCH TRANSDERM SCH (08:56)
[2016-07-26] MEDS: MULTIVITAMINS, THERA 1 EACH TAB PO SCH (08:56)
[2016-07-26] MEDS: HEPARIN SODIUM,PORCINE 5,000 UNIT/ML 1 ML VIAL SQ SCH ×2 (08:56→21:23)
[2016-07-26] MEDS: ASPIRIN 325 MG TAB PO SCH (08:58)
--- NOTE | 2016-07-26 09:35 | CONS ---
DATE OF CONSULTATION: 07/25/2016 CHIEF COMPLAINT: Right upper extremity weakness. HISTORY OF PRESENT ILLNESS: Mr. Verdugo is a pleasant 61-year-old male who is being evaluated by the neurology service today on 07/25/2016 per the request of Dr. Dixon for right arm weakness. The patient was brought into [facility] Emergency Room with complaints of weakness in his right upper extremity, which started approximately one week ago. He has also been having some recurrent falls. He did not seek any immediate medical attention, but when his symptoms did not resolve, he was brought into the emergency room. He denies any previous history of strokes and was not on any antiplatelet therapy at home. A CT scan of the brain was done, which showed hypoattenuation in the left frontal parietal region. There was also generalized atrophy and small vessel ischemic changes. He did have an MRI of the brain and the report is still pending, but I did review the images which showed evidence of an acute ischemic infarct involving the left frontal parietal region. There was also extensive small vessel ischemic disease versus severe demyelination. The patient was started on aspirin and admitted for further work-up and management. A carotid Doppler was done, which showed no hemodynamically significant stenosis. His fasting lipid panel showed elevated triglycerides at 247. His CBC and urinalysis were normal. At the time of my evaluation, the patient is sitting up in his bed and appears to be in no acute distress. He denies any changes in his symptoms since his admission. PAST MEDICAL HISTORY: Diabetes. FAMILY HISTORY: Noncontributory. SOCIAL HISTORY: The patient is a current every day smoker. He occasionally drinks alcohol. He denies any drug use. HOME MEDICATIONS: Reviewed in the chart. ALLERGIES: No known drug allergies. REVIEW OF SYSTEMS: As mentioned above and otherwise negative. PHYSICAL EXAM: Vital signs show a temperature of 98.1, pulse 78, respirations 18, blood pressure 129/65. GENERAL APPEARANCE: The patient is a well-developed, elderly male who appears to be in no acute distress. HEENT: Normocephalic, atraumatic, no facial asymmetry is seen. Neck is supple with no masses felt. CARDIOVASCULAR: Regular rate and rhythm. ABDOMEN: Nontender, nondistended. EXTREMITIES: No edema or clubbing. NEUROLOGICAL EXAM: The patient is awake and oriented x3. Speech is slightly dysarthric. Language testing was normal except for slightly reduced fluency. Strength is 2/5 in the right upper extremity, 5-/5 in the right lower extremity, and 5/5 in the left upper and lower extremity. Sensory exam showed diminished light touch sensation on the right upper extremity compared to the left. Cranial nerve testing showed tongue deviation to the right side and was otherwise normal. No seizure-like activity is seen. IMPRESSION: 1. Acute ischemic stroke, left middle cerebral artery distribution. 2. Extensive small vessel ischemic disease. 3. Right upper extremity weakness. 4. Right upper extremity sensory deficit. 5. Tobacco dependence. RECOMMENDATIONS: The patient does appear to have suffered an acute ischemic stroke as mentioned above. He continues to have right hemiparesis which is more severe than the upper extremity. Continue aspirin for antiplatelet therapy. I will consult physical therapy, occupational therapy, and speech therapy. The patient was counseled on tobacco cessation and he is currently on a nicotine patch. Continue the rest of your current work-up and management. I will continue to follow with you. Further recommendations to follow. Thank you for allowing me to participate in the care of your patient. If you have any questions, please feel free to contact me.
--- NOTE | 2016-07-26 10:18 | PN ---
DATE OF SERVICE: 07/25/2016 This 61-year-old gentleman who was admitted with acute right-sided hemiplegia also seen weakness. Seen and evaluated the patient along with the nurse practitioner. Please refer to nurse practitioner notes and impression documented for further information. The ejection fraction was found to be 40% to 50%. I would also recommend a cardiac consultation for possible DUGLAS.
[2016-07-26 11:52] LABS: Glucose,Whole Blood 302 mg/dL (75-99)
[2016-07-26 16:55] LABS: Glucose,Whole Blood 307 mg/dL (75-99)
--- NOTE | 2016-07-26 16:57 | P.PN ---
Subjective Date of service 07/26/2016 Progress note being dictated for Dr. Dixon. Interval history: This is 61-year-old gentleman admitted with acute-subacute right-sided hemiplegia caused by a left hemispheric CVA in the left frontotemporal region in a patient with continued ongoing nicotine dependence and multiple other medical issues. Maintained on aspirin, statin. Carotid Doppler reporting no hemodynamic significant stenosis. Brain MRI reporting numerous high signal lesions involving naranjo and white matter of both cerebral hemispheres, possible cortical infarcts as well as demyelinating disease and chronic small vessel ischemia, possible new cortical infarct compared to prior CT .Evaluated by neurology with recommendations noted. No seizure activity reported .diet intake improved, consuming 75-100%, hyper glycemic.Denies chest pain, palpitations or increasing shortness of breath. Review systems unable to obtain as patient dysarthric, with change in mental status. Active Medications Generic Name Dose Route Start Last Admin Trade Name Freq PRN Reason Stop Dose Admin Hydrocodone Bitart/Acetaminophen 1 each 07/24/16 19:31 [place] 5-325 PO Q6HR PRN Pain Albuterol/Ipratropium 3 ml 07/24/16 15:45 Duoneb 0.5 Mg-3 Mg/3 Ml Soln INHALATION RT-QID PRN Shortness Of Breath Or Wheezing Alprazolam 0.25 mg 07/24/16 19:31 Xanax PO TID PRN Anxiety Aspirin 325 mg 07/25/16 09:00 07/26/16 08:58 Aspirin PO 325 mg DAILY [facility] Administration Atorvastatin Calcium 80 mg 07/24/16 21:00 07/25/16 22:19 Lipitor PO 80 mg HS [facility] Administration Heparin Sodium (Porcine) 5,000 unit 07/24/16 21:00 07/26/16 08:56 Heparin SQ 5,000 unit Q12HR [facility] Administration Insulin Human Lispro 0 unit 07/24/16 21:00 07/26/16 15:43 Humalog SQ Not Given ACHS [facility] Protocol Melatonin 3 mg 07/24/16 21:00 07/25/16 22:19 Melatonin PO 3 mg HS [facility] Administration Multivitamins 1 each 07/25/16 12:00 07/26/16 08:56 Theragran PO 1 each DAILY@1200 [facility] Administration Nicotine 1 patch 07/24/16 19:45 07/26/16 08:56 Habitrol 14mg/24hr Patch TRANSDERM 1 patch DAILY [facility] Administration Pantoprazole Sodium 40 mg 07/24/16 19:45 07/26/16 07:05 Protonix PO 40 mg AC-BRKFST [facility] Administration Objective - Vital Signs Vital signs: Vital Signs Temp 98.8 F 07/26/16 15:53 Pulse 85 07/26/16 15:53 Resp 18 07/26/16 15:53 BP 144/72 07/26/16 15:53 Pulse Ox 97 07/26/16 15:53 Intake & Output 07/25/16 07/26/16 07/26/16 18:59 06:59 18:59 Intake Total 200 Balance 200 Weight 68.9 kg 67.8 kg Intake: Oral 200 - Exam PHYSICAL EXAM: VITAL SIGNS: [As above] GENERAL: [Sitting up at side of bed, no acute distress HEENT: [Pupils equal conjunctiva normal, mild right facial droop.] NECK: [Supple, no JVD,] RESPIRATORY EFFORT: Normal LUNGS: [Bilateral bases diminished, occasional scattered rhonchi, no crackles, no wheezing] CARDIOVASCULAR[regular S1 and S2, no edema] GI: [Abdomen soft, nontender, positive bowel sounds.] PSYCH: [Alert and oriented -2, mood and affect normal.] NEURO: Cranial nerves II through XII grossly intact, mild right facial droop, dysarthric, right upper extremity flaccid-grade 0, right lower extremity grade 3. Diminished sensation in right upper extremity. - Labs CBC & Chem 7: 07/26/16 05:22 07/26/16 05:22 Labs: Abnormal Lab Results - Last 24 Hours (Table) 07/25/16 07/25/16 07/26/16 Range/Units 17:44 21:35 05:22 Sodium 135 L (137-145) mmol/L Glucose 267 H (74-99) mg/dL POC Glucose (mg/dL) 240 H 210 H (75-99) mg/dL 07/26/16 07/26/16 Range/Units 06:31 11:48 Sodium (137-145) mmol/L Glucose (74-99) mg/dL POC Glucose (mg/dL) 260 H 302 H (75-99) mg/dL Assessment and Plan Plan: 1. [Acute-subacute right-sided hemiplegia caused by a left hemispheric CVA in the left frontotemporal region]. Extensive small vessel ischemic disease. 2. Continued ongoing nicotine dependence]. 3. [Diabetes mellitus type 2]. 4. [Increased alkaline phosphatase]. 5. [Dysarthria secondary to CVA]. 6. [Gait dysfunction secondary to CVA]. 7. Anterseptal, Septal hypokinesis with mildly impaired LV function, EF 45 to 50 % Plan: Continue on current medication regime, statin, aspirin, monitoring and symptomatic treatment. No DUGLAS recommended per neurology at this time as per staff. Diet intake much improved, consuming 75-100%, oral hypoglycemics resumed. Close monitoring of Accu-Cheks. Smoking cessation readdressed .Discharge planning for ECF rehab tomorrow -discussed with both patient and family. They verbalized understanding of and agreement with plan. Transfer to [facility] with remote telemetry. The impression and plan of care has been dictated as directed. : I performed a H&P examination of this patient and discussed the same with the dictator. I agree with the dictator's note. Any additional findings/opinions/ etc. will be noted.
[2016-07-26] MEDS: GLIMEPIRIDE 2 MG TAB PO SCH (17:21)
[2016-07-26] MEDS: metFORMIN 500 MG TAB PO SCH (17:21)
--- NOTE | 2016-07-26 17:43 | P.PN ---
Subjective Principal diagnosis: Stroke This is a 61-year-old male continue be evaluated by the neurology service. He presented with her right arm weakness. He had also been having some falls. He did not seek immediate medical attention. Initial computed tomography scan of the brain showed hypoattenuation in the left frontal parietal lobe. It also showed some generalized atrophy and small vessel ischemic changes. A subsequent MRI showed numerous high signal lesions in the naranjo and white matter both cerebral hemispheres. Consideration was given to a combination of cortical infarcts and demyelinating needing disease and chronic small vessel ischemia. There was also a similar finding of ischemic changes consistent with the previous day's CT in the left parietal lobe. He denies any new symptoms. At time my evaluation he is resting comfortably in bed eating a bag of chips. His carotid Doppler showed no hemodynamically snug against stenosis. Objective - Vital Signs Vital signs: Vital Signs Temp 98.8 F 07/26/16 15:53 Pulse 85 07/26/16 15:53 Resp 18 07/26/16 15:53 BP 144/72 07/26/16 15:53 Pulse Ox 97 07/26/16 15:53 Intake & Output 07/25/16 07/26/16 07/26/16 18:59 06:59 18:59 Intake Total 200 Balance 200 Weight 68.9 kg 67.8 kg Intake: Oral 200 - Constitutional General appearance: Present: no acute distress, thin - EENT Eyes: Present: PERRLA. Absent: abnormal pupil, ptosis ENT: Present: hearing grossly normal - Neck Neck: Present: normal ROM - Respiratory Respiratory: negative: prolonged expiration, prolonged inspiration - Cardiovascular Rhythm: regular - Gastrointestinal General gastrointestinal: Absent: distended, tenderness - Neurologic Neurologic Comment(s): Patient is alert awake and oriented 3. Speech continues to be slightly dysarthric. Fluency is still mildly impaired. Strength remains to a 5 in the right upper extremity and 5 minus out of 5 in the right lower extremity. No left-sided weakness is appreciated. There is sensory deficit of the right upper extremity. She continues to have tongue deviation to the right side. No tremors or seizure-like activities are seen. - Labs CBC & Chem 7: 07/26/16 05:22 07/26/16 05:22 Labs: Abnormal Lab Results - Last 24 Hours (Table) 07/25/16 07/25/16 07/26/16 Range/Units 17:44 21:35 05:22 Sodium 135 L (137-145) mmol/L Glucose 267 H (74-99) mg/dL POC Glucose (mg/dL) 240 H 210 H (75-99) mg/dL 07/26/16 07/26/16 07/26/16 Range/Units 06:31 11:48 16:43 Sodium (137-145) mmol/L Glucose (74-99) mg/dL POC Glucose (mg/dL) 260 H 302 H 307 H (75-99) mg/dL Assessment and Plan (1) Hyperlipidemia Status: Chronic (2) CVA (cerebral vascular accident) Status: Acute (3) Falls Status: Acute (4) Hyperglycemia Status: Chronic (5) Paralysis of right hand Status: Acute Plan: The patient does appear to have suffered an acute ischemic stroke of the left middle cerebral artery distribution. He has persistent right upper extremity weakness. He will continue aspirin 325 mg Lipitor 80 mg physical therapy and occupational therapy will continue to work with him speech therapy is also evaluating. He is again counseled strongly on tobacco cessation. Due to his MRI findings of possible multifocal lacunar infarcts, I will order cardiology consult for evaluation for transesophageal echocardiogram to rule out an embolic source. We will continue to follow and make further recommendations as needed. I have performed a history and physical on the above patient. I have reviewed the above note, and agree.
--- NOTE | 2016-07-26 18:08 | CONS ---
DATE OF CONSULTATION: CHIEF COMPLAINT: CVA. Nahum is a 61-year-old gentleman with history of [id number] diabetes who presented to hospital with difficulty in walking and falling with weakness on the right side. His neurological work-up showed evidence of multiple strokes due to which Cardiology had been consulted for possible DUGLAS. He denies chest pain, difficulty in breathing, palpitations, dizziness, or syncope. An echocardiogram on this admission showed LV systolic dysfunction with an ejection fraction of 45 to 50% secondary to anteroseptal myocardial infarction. At the time of my evaluation, patient is comfortable at rest and is free of symptoms. Past medical history significant for dis-wvzciwu-fapnzbzao diabetes. ALLERGIES: No known drug allergies. MEDICATIONS: Include Glucophage 500 b.i.d. along with Amaryl and Motrin. FAMILY HISTORY: Negative for premature coronary artery disease. SOCIAL HISTORY: Negative for smoking, EtOH abuse or drug abuse. REVIEW OF SYSTEMS: HEENT: Unremarkable. CARDIAC: As described above. RESPIRATORY: As described above. GI: Negative. GENITOURINARY: Negative. ALLERGY: Negative. SKIN: Negative. MUSCULOSKELETAL: Significant for arthritis. PSYCHOSOCIAL: Negative. ENDOCRINE: Negative. DERM: Negative. CONSTITUTIONAL: Negative. RECORDS MANAGEMENT SPECIALIST: As described above. On exam, comfortable at rest. Vital signs are stable. There is no jugular venous distention. Chest exam reveals good air entry bilaterally. Heart exam reveals first and second heart sounds. No gallop. No murmur, no rub. Abdomen is soft, nontender. Exam of the extremities did not reveal edema. Peripheral pulses are felt. ASSESSMENT: Cerebrovascular accident, rule out cardiac source for thromboembolic phenomenon. PLAN: I will do DUGLAS on him tomorrow.
[2016-07-26 20:43] LABS: Glucose,Whole Blood 192 mg/dL (75-99)
[2016-07-26] MEDS: INSULIN GLARGINE 100 UNIT/ML 10 ML VIAL SQ SCH (21:23)
[2016-07-26] MEDS: ATORVASTATIN 80 MG TAB PO SCH (21:23)
[2016-07-26] MEDS: MELATONIN 3 MG TABLET PO SCH (21:24)
--- NOTE | 2016-07-27 06:10 | PN ---
DATE OF SERVICE: 07/26/2016 This 61-year-old gentleman who was admitted with multiple medical problems had significant stroke is being closely monitored. The possibility of DUGLAS was considered, but at this time Neurology feels like single lesion. DUGLAS is not indicated. Sugar was elevated. Seen and evaluated the patient along with the nurse practitioner. Please refer to nurse practitioner notes and impression documented for further information. The patient is on metformin at this time. I would also recommend Lantus 20 units also. Hemoglobin A1c 10.1. Continue to monitor. Further recommendations to follow.
[2016-07-27 06:23] LABS: Basophils # (A) 0.1 k/uL (0-0.2); Basophils % (A) 1 %; CH 32.8; CHCM 36.5; Eosinophils # (A) 0.2 k/uL (0-0.7); Eosinophils % (A) 2 %; HCT 43.8 % (39.0-53.0); HDW 2.92; HGB 15.2 gm/dL (13.0-17.5); Luc # (Auto) 0.27; Luc % (Auto) 3; Lymphocytes # (A) 2.6 k/uL (1.0-4.8); Lymphocytes % (A) 26 %; MCH 31.3 pg (25.0-35.0); MCHC 34.7 g/dL (31.0-37.0); MCV 90.3 fL (80.0-100.0); Mean Platelet Volume 7.5; Monocytes # (A) 0.6 k/uL (0-1.0); Monocytes % (A) 6 %; Neutrophils # (A) 6.3 k/uL (1.3-7.7); Neutrophils % (A) 64 %; RBC 4.85 m/uL (4.30-5.90); RDW 13.3 % (11.5-15.5); WBC 9.9 k/uL (3.8-10.6); WBC (Perox) 10.34
[2016-07-27 06:28] LABS: Glucose,Whole Blood 221 mg/dL (75-99)
[2016-07-27 06:38] LABS: Anion Gap 7 mmol/L; Blood Urea Nitrogen 19 mg/dL (9-20); Calcium 9.3 mg/dL (8.4-10.2); Carbon Dioxide 25 mmol/L (22-30); Chloride 103 mmol/L (98-107); Glucose 194 mg/dL (74-99); Non-African American GFR(MDRD) >60 (>60 ml/min/1.73 sqM); Potassium 4.8 mmol/L (3.5-5.1); Sodium 135 mmol/L (137-145)
[2016-07-27] MEDS: INSULIN LISPRO (humaLOG) 300 UNIT/3 ML VIAL SQ SCH ×7 (08:50→21:14)
[2016-07-27] MEDS: ASPIRIN 325 MG TAB PO SCH (08:51)
[2016-07-27] MEDS: metFORMIN 500 MG TAB PO SCH ×2 (08:51→18:39)
[2016-07-27] MEDS: GLIMEPIRIDE 2 MG TAB PO SCH (08:51)
[2016-07-27] MEDS: PANTOPRAZOLE 40 MG TABLET PO SCH (08:52)
[2016-07-27] MEDS: NICOTINE 14MG/24HR PATCH TRANSDERM SCH (09:00)
[2016-07-27] MEDS: HEPARIN SODIUM,PORCINE 5,000 UNIT/ML 1 ML VIAL SQ SCH ×2 (09:00→20:34)
[2016-07-27] MEDS ORDERED: fentaNYL (PF) 50 MCG/ML 2 ML AMP ONE (09:40)
[2016-07-27] MEDS ORDERED: MIDAZOLAM 2 MG/2 ML VIAL ONE (09:40)
[2016-07-27] MEDS ORDERED: IV FLUID CONTINUATION 1,000 ML IV ONE (09:45)
--- NOTE | 2016-07-27 09:53 | P.CONS ---
History of Present Illness - Chief Complaint gait disturbance, right hemiparesthesias - History of Present Illness I had the opportunity to see patient for inpatient rehab consultation with regard to her gait disturbance. Significant other reports a history of 8 falls within 1-2 days prior to admission. Noted to be weak on the right side especially the arm. Head CT demonstrated age-related changes as well as multiple infarcts including left frontal area as well as sinus disease. Carotid Doppler negative. Brain MRI demonstrated numerous lesions as well as chronic change. DUGLAS pending today. Speech therapy working on higher level language tasks. OT reports modified independent with basic self-care tasks. PT ordered. Previous functional history, as elicited from patient corroborative by significant other: 69-year-old left-handed white male who lives in one floor home with significant other. 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 Smokes 2 pack a day but doesn 't drink or do regression drugs. Independent including standing shower. Significant other does the cooking and laundry. Regular doctors Dr. Krishnamurthy. Family history diabetes in mother and stroke in father. Review of Systems Review of systems: ENT: Denies sneezes or discharge. Eyes: Denies discharge or photophobia. Cardiac: Denies chest pain or palpitation. Pulmonary: Denies cough or shortness of breath. Gastrointestinal: Denies nausea, emesis, constipation, diarrhea. Genitourinary: Denies discharge or frequency. Musculoskeletal: Denies muscle or bone aches. Neurologic: right-sided weakness especially arm. History of recent multiple falls. Endocrine: Denies shakes or sweats. Oncology: Denies cancers. Dermatologic: Denies rash, itching, pruritus. ALLERGY/immunology: Denies sneezes, rashes. Past Medical History Past Medical History: Diabetes Mellitus History of Any Multi-Drug Resistant Organisms: None Reported Past Surgical History: No Surgical Hx Reported Past Psychological History: No Psychological Hx Reported Smoking Status: Current every day smoker Past Alcohol Use History: Occasional Past Drug Use History: None Reported Medications and Allergies Home Medications Medication Instructions Recorded Confirmed Type Glimepiride [Amaryl] 2 mg PO DAILY 07/20/16 07/24/16 History metFORMIN HCL [Glucophage] 500 mg PO BID 07/20/16 07/24/16 History Ibuprofen [Motrin] 800 mg PO Q6H PRN 07/24/16 07/24/16 History Allergies Allergy/AdvReac Type Severity Reaction Status Date / Time No Known Allergies Allergy Verified 07/24/16 13:08 Physical Exam Vitals: Vital Signs Temp Pulse Resp BP Pulse Ox 07/27/16 08:59 94 L 07/27/16 03:03 98.2 F 95 16 107/59 94 L 07/27/16 00:00 98.2 F 90 16 112/54 96 07/26/16 19:43 99 F 90 16 116/62 96 07/26/16 15:53 98.8 F 85 18 144/72 97 07/26/16 12:00 99.0 F 88 18 136/63 99 Intake and Output 07/26/16 07/27/16 07/27/16 22:59 06:59 14:59 Other: Voiding Method Toilet Toilet Urinal Urinal # Voids 0 0 Weight 66.1 kg Skin: Good color, texture, turgor. General: Medium build, wiry and comfortable appearance. Head: Normocephalic, atraumatic. Eyes: Symmetric. Pupils equal round. Ears: Symmetric. Hearing within normal limits. Mouth: Clear. Neck: Supple. Carotid without bruit. Cardiac: Regular rate and rhythm. Lungs: Clear anteriorly and posteriorly. Abdomen: Soft active nontender. Extremities: Normal tone. Neurological: Mental status: Alert, cooperative, pleasant. Cranial nerves: Symmetric facial tone and trapezius. Motor: Normal strength and isolation left arm and leg. Right arm with at best 4 /5 strength, 2/5 at hand. Right leg with isolation throughout but apraxic.. Sensation: Intact throughout. DTRs: Symmetric and equal throughout. Mobility: Sits and stands with5% minimal assistance, apraxia of gait. Results CBC & Chem 7: 07/27/16 05:37 07/27/16 05:37 Labs: Abnormal Lab Results - Last 24 Hours (Table) 07/26/16 07/26/16 07/26/16 Range/Units 11:48 16:43 20:31 Sodium (137-145) mmol/L Glucose (74-99) mg/dL POC Glucose (mg/dL) 302 H 307 H 192 H (75-99) mg/dL 07/27/16 07/27/16 Range/Units 05:37 06:23 Sodium 135 L (137-145) mmol/L Glucose 194 H (74-99) mg/dL POC Glucose (mg/dL) 221 H (75-99) mg/dL CT Scan - head: report reviewed (age-related change including multiple lesions especially left frontal. Sinus disease.) MRI - head: report reviewed (numerous punctate lesions as well as chronic changes.) Assessment and Plan (1) CVA (cerebral vascular accident) Status: Acute Plan: impression: 1. Gait disturbance. 2. Right hemiparesthesias. 3. Diabetes. Comments and plan: At this time PT, OT, ENGINEERING OFFICER, ordered an ongoing. OT reports the patient modified independent with basic self-care tasks including mobility. We'll follow closely with yourself for safety concerns that may present himself after a couple days of admission, PT and OT notes.
[2016-07-27] MEDS ORDERED: BENZOCAINE SPRAY 100 APPLIC/CAN MUCOUS MEM ONE (09:55)
[2016-07-27] MEDS ORDERED: MIDAZOLAM 2 MG/2 ML VIAL IV ONE (10:01)
--- NOTE | 2016-07-27 10:36 | ECHOT ---
DATE OF SERVICE: INDICATION: CVA to rule out cardiac source of thromboembolic phenomenon. PROCEDURE NOTE: After obtaining informed consent, transesophageal echocardiogram is performed in the left lateral position using an Omni plane probe. Local and IV sedation were obtained using Xylocaine spray, intravenous Versed. Patient tolerated the procedure well without any obvious immediate complications. FINDINGS: 1. There is no intracardiac thrombus within the left atrium, right atrium, right ventricle or left atrial appendage. 2. Mitral valve is anatomically normal. There is trace mitral regurgitation noted. 3. Aortic valve is free of stenosis or regurgitation. 4. Tricuspid valve shows mild tricuspid regurgitation. 5. Left ventricle has normal size and systolic function. 6. Aorta shows mild atherosclerotic changes. 7. There is no evidence of ascending aortic aneurysm. 8. Intra-atrial septum: There is no evidence of [id number]-[id number] shunt by agitated saline contrast study or sdvr-[id number] shunt by color flow Doppler. CONCLUSION: 1. No intracardiac thrombus. 2. Normal left ventricular function. 3. No evidence of shunting across intra-atrial septum.
[2016-07-27 11:43] LABS: Glucose,Whole Blood 206 mg/dL (75-99)
[2016-07-27] MEDS: SODIUM CHLORIDE 0.9% 1,000 ML IV SCH (12:04)
[2016-07-27] MEDS: MULTIVITAMINS, THERA 1 EACH TAB PO SCH (12:06)
[2016-07-27 16:39] LABS: Glucose,Whole Blood 183 mg/dL (75-99)
--- NOTE | 2016-07-27 17:12 | P.PN ---
Subjective Principal diagnosis: Stroke This is a 61-year-old male continue be evaluated by the neurology service. He presented with her right arm weakness. He had also been having some falls. He did not seek immediate medical attention. Initial computed tomography scan of the brain showed hypoattenuation in the left frontal parietal lobe. It also showed some generalized atrophy and small vessel ischemic changes. A subsequent MRI showed numerous high signal lesions in the naranjo and white matter both cerebral hemispheres. Consideration was given to a combination of cortical infarcts and demyelinating disease and chronic small vessel ischemia. There was also a similar finding of ischemic changes consistent with the previous day's CT in the left parietal lobe. He denies any new symptoms. At time my evaluation he is siting in his bedside chair. His carotid Doppler showed no hemodynamically snug against stenosis. Transesophageal echocardiogram showed no thrombus. Objective - Vital Signs Vital signs: Vital Signs Temp 97.6 F 07/27/16 10:26 Pulse 87 07/27/16 10:41 Resp 18 07/27/16 10:41 BP 105/68 07/27/16 10:41 Pulse Ox 100 07/27/16 10:41 Intake & Output 07/26/16 07/27/16 07/27/16 18:59 06:59 18:59 Intake Total 100 Output Total 0 Balance 100 Weight 66.1 kg Intake: Oral 100 Output: Urine 0 Other: Voiding Method Toilet Toilet Urinal Urinal # Voids 1 0 - Constitutional General appearance: Present: average body habitus - EENT Eyes: Present: EOMI, PERRLA. Absent: abnormal pupil, ptosis ENT: Present: hearing grossly normal - Neck Neck: Present: normal ROM. Absent: rigidity - Respiratory Respiratory: negative: prolonged expiration, prolonged inspiration - Cardiovascular Rhythm: regular - Neurologic Neurologic Comment(s): Patient is alert and area 3. Speech remains mildly dysarthric. Strength in his right upper extremity has improved minimally since yesterday. Otherwise strength in other extremities is full. No tremors or seizure-like activities are seen. - Labs CBC & Chem 7: 07/27/16 05:37 07/27/16 05:37 Labs: Abnormal Lab Results - Last 24 Hours (Table) 07/26/16 07/27/16 07/27/16 Range/Units 20:31 05:37 06:23 Sodium 135 L (137-145) mmol/L Glucose 194 H (74-99) mg/dL POC Glucose (mg/dL) 192 H 221 H (75-99) mg/dL 07/27/16 07/27/16 Range/Units 11:42 16:35 Sodium (137-145) mmol/L Glucose (74-99) mg/dL POC Glucose (mg/dL) 206 H 183 H (75-99) mg/dL Assessment and Plan (1) Hyperlipidemia Status: Chronic (2) CVA (cerebral vascular accident) Status: Acute (3) Falls Status: Acute (4) Hyperglycemia Status: Chronic (5) Paralysis of right hand Status: Acute Plan: The patient does appear to have suffered an acute ischemic stroke of the left middle cerebral artery distribution. He has persistent right upper extremity weakness. He will continue aspirin 325 mg Lipitor 80 mg, physical therapy and occupational therapy will continue to work with him. speech therapy is also evaluating. He is again counseled strongly on tobacco cessation. He is cleared from a neurological standpoint I have performed a history and physical on the above patient. I have reviewed the above note, and agree.
[2016-07-27] MEDS: ATORVASTATIN 80 MG TAB PO SCH (20:34)
[2016-07-27] MEDS: MELATONIN 3 MG TABLET PO SCH (20:34)
[2016-07-27 21:05] LABS: Glucose,Whole Blood 163 mg/dL (75-99)
[2016-07-27] MEDS: INSULIN GLARGINE 100 UNIT/ML 10 ML VIAL SQ SCH (21:13)
[2016-07-28 07:01] LABS: Glucose,Whole Blood 183 mg/dL (75-99)
[2016-07-28 07:41] VITALS: BP 101/62; PULSE 80; RESP 16; TEMP 97
[2016-07-28] MEDS: PANTOPRAZOLE 40 MG TABLET PO SCH (08:31)
[2016-07-28] MEDS: GLIMEPIRIDE 2 MG TAB PO SCH (08:31)
[2016-07-28] MEDS: INSULIN LISPRO (humaLOG) 300 UNIT/3 ML VIAL SQ SCH ×2 (08:31)
[2016-07-28] MEDS: metFORMIN 500 MG TAB PO SCH (08:31)
[2016-07-28] MEDS: ASPIRIN 325 MG TAB PO SCH (08:31)
[2016-07-28] MEDS: NICOTINE 14MG/24HR PATCH TRANSDERM SCH (08:32)
[2016-07-28] MEDS: HEPARIN SODIUM,PORCINE 5,000 UNIT/ML 1 ML VIAL SQ SCH (08:32)
[2016-07-28 09:09] LABS: Basophils # (A) 0.1 k/uL (0-0.2); Basophils % (A) 1 %; CH 32.9; CHCM 36.1; Eosinophils # (A) 0.3 k/uL (0-0.7); Eosinophils % (A) 4 %; HCT 44.8 % (39.0-53.0); HGB 15.8 gm/dL (13.0-17.5); Luc # (Auto) 0.24; Luc % (Auto) 3; Lymphocytes # (A) 2.3 k/uL (1.0-4.8); Lymphocytes % (A) 24 %; MCH 32.3 pg (25.0-35.0); MCHC 35.3 g/dL (31.0-37.0); MCV 91.6 fL (80.0-100.0); Mean Platelet Volume 8.2; Monocytes # (A) 0.6 k/uL (0-1.0); Monocytes % (A) 6 %; Neutrophils % (A) 63 %; RBC 4.89 m/uL (4.30-5.90); RDW 13.4 % (11.5-15.5); WBC 9.5 k/uL (3.8-10.6); WBC (Perox) 9.15
--- NOTE | 2016-07-28 09:19 | PN ---
DATE OF SERVICE: 07/27/2016 This 61-year-old gentleman admitted with acute stroke on the left hemisphere causing the right-sided weakness. He is being closely monitored. Seen and evaluated the patient with the nurse practitioner. Please refer to the nurse practitioner's notes and impression documented as ascribed for information. PT, OT evaluation and possible inpatient rehab versus ECF rehab. Guarded prognosis. Further recommendations to follow.
[2016-07-28 09:25] LABS: Anion Gap 8 mmol/L; Blood Urea Nitrogen 19 mg/dL (9-20); Calcium 9.5 mg/dL (8.4-10.2); Carbon Dioxide 31 mmol/L (22-30); Chloride 100 mmol/L (98-107); Glucose 213 mg/dL (74-99); Non-African American GFR(MDRD) >60 (>60 ml/min/1.73 sqM); Potassium 4.8 mmol/L (3.5-5.1); Sodium 139 mmol/L (137-145)
[2016-07-28] MEDS: SODIUM CHLORIDE 0.9% 1,000 ML IV SCH (10:21)
--- NOTE | 2016-07-29 15:44 | DS ---
DATE OF ADMISSION: 07/24/2016 DATE OF DISCHARGE: 07/28/2016 FINAL DIAGNOSES: 1. Acute to subacute right sided hemiplegia caused by left hemisphere cerebrovascular accident with left frontal parietal region, with extensive small vessel ischemia. 2. Continued ongoing nicotine dependence. 3. Type 2 diabetes mellitus. 4. Increased alkaline phosphatase. 5. Dysarthria secondary to cerebrovascular accident. 6. Gait dysfunction. 7. hypokinesia with mild impaired left ventricle dysfunction, ejection fraction 45 to 55%. 8. DUGLAS showing no evidence of any obvious intracardiac thrombus or shunt. 9. Gait dysfunction. DISCHARGE DISPOSITION: Patient will be discharged in stable condition with guarded prognosis. The patient is slated to go home. Total time taken 35 minutes. HISTORY OF PRESENT ILLNESS: This 61-year-old gentleman with a past medical history of multiple medical problems as mentioned earlier was admitted with significant stroke, treated conservatively. Neurovascular workup negative and the patient also had a DUGLAS, which was also negative. On exam, vital signs are stable. CARDIOVASCULAR: S1, S2. Abdomen soft. CENTRAL NERVOUS SYSTEM: No focal deficits. Labs are noted. The patient has significant right hemiplegia. DISCHARGE ADVICE AND MEDICATIONS: 1. Diet is cardiac. 2. Activity limited until follow-up. 3. Follow up with Dr. Nelson 2 to 3 days. 4. Follow up with Dr. Cummings and Dr. Hernandez as recommended. 5. Medications are as follows: 6. Ecotrin 320 mg p.o. daily. 7. Lipitor 80 mg q.h.s. 8. Amaryl 2 mg p.o. daily. 9. Insulin NPH 40 units subcu b.i.d. 10. Multivitamins 1 p.o. daily. 11. Habitrol 14 daily. 12. Protonix 40 mg b.i.d. 13. Glucophage 500 mg b.i.d. 14. Accu-Cheks a.c. and at bedtime, results to Dr. Nelson. Once again, the patient will be discharged in a stable condition with guarded prognosis. Total time taken 35 minutes. MTDD
== END 2016-07-28 11:29 | disposition home health service (06) | DRG 65 ==
LOC: EC 12:29 → 6SEL 15:44 → 4MS4W 07-27 21:02
PROVIDERS: ADMIT Hospitalist; ATTEND Hospitalist
DX: I63.9 Cerebral infarction, unspecified (principal); G81.91 Hemiplegia, unspecified affecting right dominant side; E11.65 Type 2 diabetes mellitus with hyperglycemia; E86.0 Dehydration; E78.1 Pure hyperglyceridemia; F17.210 Nicotine dependence, cigarettes, uncomplicated; F41.9 Anxiety disorder, unspecified; R47.1 Dysarthria and anarthria; R48.2 Apraxia; Z79.84 Long term (current) use of oral hypoglycemic drugs
CPT/HCPCS: 36415; 70450; 70553; 80048; 80053; 80061; 81003; 82550; 82553; 83036; 83605; 83735; 84100; 84484; 85025; 85379; 85610; 85730; 87086; 93005; 93306; 93312; 93320; 93325; 93880; 94760; 96360; 96361; 99285

== ENCOUNTER 2016-07-30 10:50 | Emergency (ER) | payer OTHER ==
[2016-07-30 10:56] VITALS: PULSE 78
--- NOTE | 2016-07-30 11:51 | ED ---
Fall HPI - General Chief Complaint: Fall Stated Complaint: Fall Time Seen by Provider: 07/30/16 11:31 Source: patient Mode of arrival: ambulatory - History of Present Illness Initial Comments: 61-year-old male patient presents to emergency department today after experiencing a fall at home. Patient states he was sitting in a chair was reaching, over to grab something and the chair slid out from underneath him. Patient was discharged on after being admitted for CVA with multiple areas of infarct. Patient was left with residual right arm paralysis. is concerned because patient had experienced multiple falls which prompted the initial visit. Patient denies hitting his head or losing consciousness. Patient denies any injury from the fall. Patient denies any headache, dizziness , blurred or double vision, chest pain, shortness of breath, back pain, weakness , abdominal pain, nausea, vomiting, constipation, diarrhea, dysuria, urinary urgency, or urinary frequency. Patient is also newly placed on insulin for his type 2 diabetes, but states blood sugars have been within acceptable ranges. - Related Data Home Medications Medication Instructions Recorded Confirmed Glimepiride [Amaryl] 2 mg PO DAILY 07/20/16 07/24/16 metFORMIN HCL [Glucophage] 500 mg PO BID 07/20/16 07/24/16 Previous Rx's Medication Instructions Recorded Aspirin 325 mg PO DAILY #30 tab 07/27/16 Atorvastatin [Lipitor] 80 mg PO HS #30 tab 07/27/16 Multivitamins, Thera [Multivitamin 1 each PO DAILY@1200 #30 tab 07/27/16 (formulary)] Nicotine 14Mg/24Hr Patch [Habitrol] 1 patch TRANSDERM DAILY #30 patch 07/27/16 Pantoprazole [Protonix] 40 mg PO AC-BRKFST #30 tablet. 07/27/16 Insulin NPH Hum/Reg Insulin Hm 14 unit SQ BID #1 vial 07/28/16 [NovoLIN 70-30 100 UNIT/ML VIAL] Allergies Allergy/AdvReac Type Severity Reaction Status Date / Time No Known Allergies Allergy Verified 07/30/16 10:55 Review of Systems ROS Statement: Those systems with pertinent positive or pertinent negative responses have been documented in the HPI. ROS Other: All systems not noted in ROS Statement are negative. Past Medical History Past Medical History: CVA/TIA, Diabetes Mellitus, Hyperlipidemia History of Any Multi-Drug Resistant Organisms: None Reported Past Surgical History: No Surgical Hx Reported Past Psychological History: No Psychological Hx Reported Smoking Status: Former smoker Past Alcohol Use History: Occasional Past Drug Use History: None Reported General Exam Limitations: no limitations General appearance: alert, in no apparent distress Eye exam: Present: normal appearance, PERRL, EOMI. Absent: scleral icterus, conjunctival injection, nystagmus, periorbital swelling Pupils: Present: normal accommodation ENT exam: Present: normal exam, normal oropharynx, mucous membranes moist Neck exam: Present: normal inspection. Absent: tenderness, meningismus, lymphadenopathy Respiratory exam: Present: normal lung sounds bilaterally. Absent: respiratory distress, wheezes, rales, rhonchi, stridor Cardiovascular Exam: Present: regular rate, normal rhythm, normal heart sounds. Absent: systolic murmur, diastolic murmur, rubs, gallop, clicks GI/Abdominal exam: Present: soft, normal bowel sounds. Absent: distended, tenderness, guarding, rebound, rigid Extremities exam: Present: normal inspection, normal capillary refill. Absent: full ROM (Right arm paralysis), tenderness, pedal edema, joint swelling, calf tenderness Back exam: Present: normal inspection Neurological exam: Present: alert, oriented X3, CN II-XII intact, other (Speech is fluid and clear) Expanded Patient oriented to: Present: person, place, time Speech: Present: fluid speech Cranial nerves: EOM's Intact: Normal, Gag Reflex: Normal, Tongue Deviation: Abnormal Right, Nystagmus: Normal, Facial Sensation: Normal, Facial Palsy with Forehead Movement: Normal, Facial Palsy without Forehead Movement: Normal Cerebellar function: Finger to Nose: Abnormal Right Motor strength exam: RUE: 0, LUE: 5, RLE: 5, LLE: 5 Psychiatric exam: Present: normal affect, normal mood Skin exam: Present: warm, dry, intact, normal color. Absent: rash Course Vital Signs 07/30/16 10:53 Temperature 97.5 F L Pulse Rate 78 Respiratory 20 Rate Blood Pressure 114/57 O2 Sat by Pulse 98 Oximetry Medical Decision Making - Medical Decision Making 61-year-old male patient presented to the emergency department today after experiencing a fall from a chair. Patient was recently admitted and diagnosed with CVA with multiple areas of infarct. Patient was left with some right arm paralysis, and right-sided tongue deviation. Neuro exam was otherwise unremarkable. Patient did have a computed tomography scan of the brain which did not show any acute abnormalities. Blood glucose monitoring was performed as well with result of 127. Patient will be discharged home at this time with instructions to follow-up with his primary care physician as well as his neurologist for any further evaluation. Patient also instructed to return for any new, worsening, or concerning symptoms. Patient and verbalized understanding and agreement with this plan. - Lab Data Lab Results 07/30/16 Range/Units 12:03 POC Glucose (mg/dL) 127 H (75-99) mg/dL POC Glu Framing Carpenter ID - Radiology Data Radiology results: report reviewed CT of the brain without contrast impression by Dr. Cunningham reveals no acute intracranial abnormality, chronic atrophic changes, old left frontal infarct, chronic ischemic change, and ethmoidal and maxillary sinus mucosal disease. Disposition Clinical Impression: Fall, Gait disturbance, History of CVA (cerebrovascular accident) Disposition: HOME SELF-CARE Condition: Stable Instructions: Fall Prevention for Older Adults (ED) Additional Instructions: Change positions slowly. The ulnar and conscience of surroundings to prevent falls. Follow-up with primary care physician and neurologist in 1-2 days. Return for any new, worsening, or concerning symptoms. Referrals: Anthony Nelson MD [Primary Care Provider] - 1-2 days Time of Disposition: 12:22
[2016-07-30 12:06] LABS: Glucose,Whole Blood 127 mg/dL (75-99)
--- NOTE | 2016-07-30 12:07 | CT ---
EXAMINATION TYPE: CT brain wo con DATE OF EXAM: 07/30/2016 11:58 AM COMPARISON: Previous study dated 07/24/2016 HISTORY: Fall from chair CT DLP: 1126.5 mGycm Automated exposure control for dose reduction was used. FINDINGS: There are generalized changes of sulcal prominence and ventriculomegaly, compatible with at rophic change. There is diffuse periventricular white matter lucency, compatible with small vessel is chemic change. There is evidence of a left frontal infarct. There is no acute focal lesion, mass effe ct or midline shift identified. I do not see evidence of intracranial blood. There is fairly marked t hickening of the mucosa of the maxillary sinuses and there is also mucosal disease involving the ethm oid sinuses. No depressed skull fracture is seen. IMPRESSION: 1. NO ACUTE INTRACRANIAL ABNORMALITY. 2. CHRONIC ATROPHIC CHANGE. 3. OLD LEFT FRONTAL INFARCT. 4. CHRONIC ISCHEMIC CHANGE. 5. ETHMOIDAL AND MAXILLARY SINUS MUCOSAL DISEASE.
[2016-07-30 12:40] VITALS: BP 124/64; RESP 18; TEMP 97.2
== END 2016-07-30 12:35 | disposition home or self-care (01) ==
LOC: EC 10:50
DX: R26.9 Unspecified abnormalities of gait and mobility (principal); I69.331 Monoplegia of upper limb following cerebral infarction affecting right dominant side; W07.XXXA Fall from chair, initial encounter; Y92.009 Unspecified place in unspecified non-institutional (private) residence as the place of occurrence of the external cause; I69.398 Other sequelae of cerebral infarction; K14.8 Other diseases of tongue; E11.9 Type 2 diabetes mellitus without complications; E78.5 Hyperlipidemia, unspecified; Z79.4 Long term (current) use of insulin; Z79.84 Long term (current) use of oral hypoglycemic drugs; Z79.899 Other long term (current) drug therapy; Z87.891 Personal history of nicotine dependence
CPT/HCPCS: 36415; 70450; 99284

== ENCOUNTER 2016-08-10 12:17 | Inpatient (IN) | payer OTHER ==
[2016-08-10] MEDS ORDERED: SODIUM CHLORIDE 0.9% 500 ML IV STA (13:03)
[2016-08-10] MEDS ORDERED: SODIUM CHLORIDE 0.9% 1,000 ML IV STA (13:03)
--- NOTE | 2016-08-10 13:40 | XR ---
EXAMINATION TYPE: XR chest 2V DATE OF EXAM: 08/10/2016 1:36 PM COMPARISON: NONE TECHNIQUE: PA and lateral views submitted. HISTORY: Cough FINDINGS: The lungs are clear and there is no pneumothorax, pleural effusion, or focal pneumonia. Interstitia l process suggest pulmonary interstitial chronic lung disease. Subsegmental changes on the lateral vi ew and left perihilar region suspicious for patchy infiltrate. Correlate for underlying COPD. IMPRESSION: 1. Findings suspicious for patchy left perihilar and lower lobe infiltrate particularly noted on the lateral view. 2. Correlate for underlying COPD.
[2016-08-10 13:52] LABS: Basophils # (A) 0.1 k/uL (0-0.2); Basophils % (A) 0 %; CH 32.6; CHCM 36.8; Eosinophils % (A) 0 %; HCT 43.3 % (39.0-53.0); HDW 3.17; HGB 15.2 gm/dL (13.0-17.5); Luc # (Auto) 0.19; Luc % (Auto) 1; Lymphocytes # (A) 1.4 k/uL (1.0-4.8); Lymphocytes % (A) 6 %; MCH 31.4 pg (25.0-35.0); MCHC 35.2 g/dL (31.0-37.0); MCV 89.2 fL (80.0-100.0); Mean Platelet Volume 7.5; Monocytes # (A) 0.7 k/uL (0-1.0); Monocytes % (A) 3 %; Neutrophils # (A) 20.9 k/uL (1.3-7.7); Neutrophils % (A) 89 %; RBC 4.85 m/uL (4.30-5.90); RDW 14.1 % (11.5-15.5); WBC 23.4 k/uL (3.8-10.6)
[2016-08-10 14:04] LABS: ALT 30 U/L (21-72); AST 18 U/L (17-59); Alkaline Phosphatase 123 U/L (38-126); Anion Gap 11 mmol/L; Blood Urea Nitrogen 28 mg/dL (9-20); Calcium 9.7 mg/dL (8.4-10.2); Carbon Dioxide 26 mmol/L (22-30); Chloride 101 mmol/L (98-107); Glucose 145 mg/dL (74-99); Magnesium 1.7 mg/dL (1.6-2.3); Non-African American GFR(MDRD) >60 (>60 ml/min/1.73 sqM); Sodium 138 mmol/L (137-145); Total Bilirubin 0.7 mg/dL (0.2-1.3); Total Protein 6.8 g/dL (6.3-8.2)
--- NOTE | 2016-08-10 14:14 | ED ---
Recheck HPI - General Chief Complaint: Recheck/Abnormal Lab/Rx Stated Complaint: Low BP - Recent Stroke Time Seen by Provider: 08/10/16 13:00 Source: patient, family, RN notes reviewed Mode of arrival: wheelchair Limitations: no limitations - History of Present Illness Initial Comments: This is a 7-year-old male with a history of recent stroke with right upper extremity weakness who is brought in today he was sent in by visiting nurses due to an elevated heart rate of about 135 a blood pressure of 83/56 no system nausea vomiting is 40. No new deficits. Patient is diabetic. He vomited after eating today but had also taking his medication. No cough or phlegm production no dysuria no other symptoms again no new weakness was upper or lower extremities he states his right lower extremity was personally untouched but his stroke he still has much difficulty with the right upper extremity but he has improving. - Related Data Home Medications Medication Instructions Recorded Confirmed Glimepiride [Amaryl] 2 mg PO HS 07/20/16 08/10/16 metFORMIN HCL [Glucophage] 500 mg PO BID 07/20/16 08/10/16 Previous Rx's Medication Instructions Recorded Aspirin 325 mg PO DAILY #30 tab 07/27/16 Atorvastatin [Lipitor] 80 mg PO HS #30 tab 07/27/16 Multivitamins, Thera [Multivitamin 1 each PO DAILY@1200 #30 tab 07/27/16 (formulary)] Insulin NPH Hum/Reg Insulin Hm 14 unit SQ BID #1 vial 07/28/16 [NovoLIN 70-30 100 UNIT/ML VIAL] Allergies Allergy/AdvReac Type Severity Reaction Status Date / Time No Known Allergies Allergy Verified 08/10/16 13:50 Review of Systems ROS Statement: Those systems with pertinent positive or pertinent negative responses have been documented in the HPI. ROS Other: All systems not noted in ROS Statement are negative. Past Medical History Past Medical History: CVA/TIA, Diabetes Mellitus, Hyperlipidemia History of Any Multi-Drug Resistant Organisms: None Reported Past Surgical History: No Surgical Hx Reported Past Psychological History: No Psychological Hx Reported Smoking Status: Former smoker Past Alcohol Use History: Occasional Past Drug Use History: None Reported General Exam - General Exam Comments Initial Comments: This is a well-developed well-nourished awake alert oriented 3 male Limitations: no limitations General appearance: alert, in no apparent distress Head exam: Present: atraumatic, normocephalic, normal inspection Eye exam: Present: normal appearance, PERRL, EOMI. Absent: scleral icterus, conjunctival injection, periorbital swelling ENT exam: Present: mucous membranes dry Neck exam: Present: normal inspection. Absent: tenderness, meningismus, lymphadenopathy Respiratory exam: Present: normal lung sounds bilaterally. Absent: respiratory distress, wheezes, rales, rhonchi, stridor Cardiovascular Exam: Present: normal rhythm, tachycardia, normal heart sounds. Absent: systolic murmur, diastolic murmur, rubs, gallop, clicks GI/Abdominal exam: Present: soft, normal bowel sounds. Absent: distended, tenderness, guarding, rebound, rigid Extremities exam: Present: normal capillary refill. Absent: full ROM (Right upper extremity demonstrates marked hemiparesis), tenderness, pedal edema, joint swelling, calf tenderness Back exam: Present: normal inspection Neurological exam: Present: alert, oriented X3, CN II-XII intact, motor sensory deficit Psychiatric exam: Present: normal affect, normal mood Skin exam: Present: warm, dry, intact, normal color. Absent: rash Course Vital Signs 08/10/16 08/10/16 08/10/16 12:30 13:25 14:30 Temperature 98.3 F Pulse Rate 119 H 103 H 106 H Respiratory 20 18 17 Rate Blood Pressure 89/53 97/54 102/61 O2 Sat by Pulse 96 93 L 96 Oximetry 08/10/16 16:27 Temperature Pulse Rate 99 Respiratory 17 Rate Blood Pressure 99/53 O2 Sat by Pulse 100 Oximetry - Reevaluation(s) Reevaluation #1: 08/10/16 16:37 Reevaluation patient reveals him feel somewhat improved after IV fluids. Medical Decision Making - Medical Decision Making I did reevaluate the patient again in 2 occasions I did discuss findings with him and his . Patient does demonstrate pneumonia dehydration a he'll be admitted for IV fluids IV antibiotics and continued monitoring. His blood pressure is improving - Lab Data Result diagrams: 08/10/16 12:45 08/10/16 12:45 Lab Results 08/10/16 08/10/16 08/10/16 Range/Units 12:45 12:45 12:45 WBC 23.4 H (3.8-10.6) k/uL RBC 4.85 (4.30-5.90) m/uL Hgb 15.2 (13.0-17.5) gm/dL Hct 43.3 (39.0-53.0) % MCV 89.2 (80.0-100.0) fL MCH 31.4 (25.0-35.0) pg MCHC 35.2 (31.0-37.0) g/dL RDW 14.1 (11.5-15.5) % Plt Count 345 (150-450) k/uL Neutrophils % 89 % Lymphocytes % 6 % Monocytes % 3 % Eosinophils % 0 % Basophils % 0 % Neutrophils # 20.9 H (1.3-7.7) k/uL Lymphocytes # 1.4 (1.0-4.8) k/uL Monocytes # 0.7 (0-1.0) k/uL Eosinophils # 0.0 (0-0.7) k/uL Basophils # 0.1 (0-0.2) k/uL Sodium 138 (137-145) mmol/L Potassium 5.0 (3.5-5.1) mmol/L Chloride 101 (98-107) mmol/L Carbon Dioxide 26 (22-30) mmol/L Anion Gap 11 mmol/L BUN 28 H (9-20) mg/dL Creatinine 0.65 L (0.66-1.25) mg/dL Est GFR (MDRD) Af Amer >60 (>60 ml/min/1.73 sqM) Est GFR (MDRD) Non-Af >60 (>60 ml/min/1.73 sqM) Glucose 145 H (74-99) mg/dL Calcium 9.7 (8.4-10.2) mg/dL Magnesium 1.7 (1.6-2.3) mg/dL Total Bilirubin 0.7 (0.2-1.3) mg/dL AST 18 (17-59) U/L ALT 30 (21-72) U/L Alkaline Phosphatase 123 (38-126) U/L Total Creatine Kinase 28 L (55-170) U/L CK-MB (CK-2) 0.7 (0.0-2.4) ng/mL CK-MB (CK-2) Rel Index 2.5 Total Protein 6.8 (6.3-8.2) g/dL Albumin 3.9 (3.5-5.0) g/dL - EKG Data -: EKG Interpreted by Me EKG shows normal: sinus rhythm (Sinus tachycardia with a rate of 107 NH interval 128 QRS duration 106 daily since QTC of 324/[address]-T wave changes are is evidence of a incomplete right bundle-branch block and right word axis) - Radiology Data Radiology results: report reviewed (X-ray did show evidence of left lower lobe and left perihilar infiltrate.), image reviewed Critical Care Time Critical Care Time: Yes Critical Care Time: 36 minutesof critical care time which includes history physical lab and x-rays on the patient. Suction with patient family and several occasions. Review of old charting. Review the patient admission orders discussed with the main physician documentation of the above. Disposition Clinical Impression: Pneumonia, Dehydration, Hypotension, History of CVA (cerebrovascular accident) Disposition: ADMITTED IP TO THIS HOSP Condition: Stable
[2016-08-10 14:20] LABS: Creatine Kinase MB 0.7 ng/mL (0.0-2.4)
[2016-08-10] MEDS ORDERED: PIPERACILLIN-TAZOBACTAM 3.375 GM in DEXTROSE/WATER 1 50ML.BAG IVPB STA ×2 (16:36→16:45)
[2016-08-10] MEDS ORDERED: PNEUMONIA PROTOCOL UTILIZED 1 EACH MISC PO PRN (16:40)
[2016-08-10] MEDS ORDERED: LEVOFLOXACIN 750MG-D5W PMX 750 MG in DEXTROSE/WATER 1 150ML.BAG IVPB STA (16:40)
[2016-08-10 17:08] LABS: Hemoglobin A1C 9.5 % (4.2-6.1)
[2016-08-10] MEDS: SODIUM CHLORIDE 0.9% 1,000 ML IV SCH (19:26)
[2016-08-10] MEDS: metFORMIN 500 MG TAB PO SCH (19:29)
[2016-08-10] MEDS: INSULIN LISPRO (humaLOG) 300 UNIT/3 ML VIAL SQ SCH ×2 (19:29→22:42)
[2016-08-10 19:33] LABS: Glucose,Whole Blood 113 mg/dL (75-99)
[2016-08-10] MEDS ORDERED: IPRATROPIUM-ALBUTEROL 3 ML NEB INHALATION SCH ×3 (20:00)
[2016-08-10] MEDS ORDERED: SODIUM CHLORIDE 0.9% 500 ML IV ONE (21:01)
[2016-08-10] MEDS: INSULIN NPH/REG INSULIN 70/30 300 UNIT/3 ML VIAL SQ SCH (22:00)
[2016-08-10] MEDS: GLIMEPIRIDE 2 MG TAB PO SCH (22:43)
[2016-08-10] MEDS: ATORVASTATIN 80 MG TAB PO SCH (22:43)
[2016-08-10] MEDS: PANTOPRAZOLE 40 MG/10 ML VIAL IVP SCH (22:44)
[2016-08-10] MEDS: HEPARIN SODIUM,PORCINE 5,000 UNIT/ML 1 ML VIAL SQ SCH (22:44)
[2016-08-10] MEDS ORDERED: IPRATROPIUM-ALBUTEROL 3 ML NEB INHALATION PRN (23:21)
[2016-08-11] MEDS ORDERED: PIPERACILLIN-TAZOBACTAM 3.375 GM in DEXTROSE/WATER 1 50ML.BAG IVPB SCH
[2016-08-11] MEDS: PIPERACILLIN-TAZOBACTAM 3.375 GM in DEXTROSE/WATER 1 50ML.BAG IVPB SCH ×3 (01:27→16:06)
[2016-08-11 03:40] LABS: Appearance,Urine Clear (Clear); Bilirubin,Urine Negative (Negative); Glucose,Urine (UA) 3+ (Negative); Ketones,Urine Negative (Negative); Leukocyte Esterase,Urine Negative (Negative); Nitrite,Urine Negative (Negative); Protein,Urine Negative (Negative); Specific Gravity,Urine 1.017 (1.001-1.035); UA Billing (MACRO vs. MICRO) CHEM; Urobilinogen,Urine <2.0 mg/dL (<2.0)
[2016-08-11] MEDS: SODIUM CHLORIDE 0.9% 1,000 ML IV SCH ×3 (03:50→17:09)
[2016-08-11 07:23] LABS: Glucose,Whole Blood 131 mg/dL (75-99)
[2016-08-11] MEDS: INSULIN LISPRO (humaLOG) 300 UNIT/3 ML VIAL SQ SCH ×4 (07:40→22:50)
[2016-08-11] MEDS: ASPIRIN 325 MG TAB PO SCH (07:47)
[2016-08-11] MEDS: HEPARIN SODIUM,PORCINE 5,000 UNIT/ML 1 ML VIAL SQ SCH ×2 (07:47→22:49)
[2016-08-11] MEDS: metFORMIN 500 MG TAB PO SCH ×2 (07:47→17:53)
[2016-08-11] MEDS: PANTOPRAZOLE 40 MG/10 ML VIAL IVP SCH (07:48)
[2016-08-11 07:54] LABS: Basophils # (A) 0.1 k/uL (0-0.2); Basophils % (A) 1 %; CHCM 35.4; Eosinophils # (A) 0.3 k/uL (0-0.7); Eosinophils % (A) 2 %; HCT 38.2 % (39.0-53.0); HDW 3.11; HGB 13.4 gm/dL (13.0-17.5); Luc # (Auto) 0.23; Luc % (Auto) 2; Lymphocytes # (A) 1.8 k/uL (1.0-4.8); Lymphocytes % (A) 15 %; MCH 31.8 pg (25.0-35.0); MCV 90.9 fL (80.0-100.0); Mean Platelet Volume 7.4; Monocytes # (A) 0.6 k/uL (0-1.0); Monocytes % (A) 5 %; Neutrophils # (A) 9.3 k/uL (1.3-7.7); Neutrophils % (A) 76 %; RBC 4.21 m/uL (4.30-5.90); RDW 13.8 % (11.5-15.5); WBC 12.3 k/uL (3.8-10.6); WBC (Perox) 13.06
[2016-08-11 08:09] LABS: Anion Gap 8 mmol/L; Blood Urea Nitrogen 17 mg/dL (9-20); Calcium 8.8 mg/dL (8.4-10.2); Carbon Dioxide 23 mmol/L (22-30); Chloride 106 mmol/L (98-107); Glucose 130 mg/dL (74-99); Non-African American GFR(MDRD) >60 (>60 ml/min/1.73 sqM); Potassium 4.5 mmol/L (3.5-5.1); Sodium 137 mmol/L (137-145)
--- NOTE | 2016-08-11 08:23 | HP ---
DATE OF ADMISSION: The chief complaints are cough with tachycardia, vomiting. HISTORY OF PRESENT ILLNESS: This 61-year-old gentleman with the past medical history of CVA, TIA, diabetes mellitus, hypertension, hyperlipidemia, history of nicotine dependence, being followed by Dr. Nelson in the outpatient setting was noted to have some vomiting and subsequently patient has some cough and there is also noted tachycardia and some hypotension. Patient was taken to [facility], admitted for further evaluation and treatment. There is no history of fever or rigors, no history of headache, loss of consciousness. PAST MEDICAL HISTORY: History of diabetes mellitus type 2, history of hypertension, history of CVA, TIA. Medications prior to admission include: 1. Amaryl 2 mg p.o. q.h.s. 2. Lipitor 80 mg q.h.s. 3. Glucophage 500 mg p.o. b.i.d. 4. Multivitamin 1 p.o. daily. 5. Novolin 70/30 forty units subQ b.i.d. 6. Aspirin 325 mg daily. Allergies are none. FAMILY HISTORY: History of diabetes mellitus in the family. SOCIAL HISTORY: Previous history of smoking, no history of alcohol intake. REVIEW OF SYSTEMS: ENT: No diminishing hearing, diminished vision. CARDIOVASCULAR SYSTEM: No angina or palpitation. RESPIRATORY: As mentioned earlier. GI: As mentioned earlier. : No dysuria. NERVOUS SYSTEM: No numbness, otherwise, as mentioned earlier. ALLERGY/IMMUNOLOGY: No history of asthma. MUSCULOSKELETAL: As mentioned earlier. HEMATOLOGY/ONCOLOGY: No history of anemia. ENDOCRINE: Diabetes. CONSTITUTIONAL: As mentioned earlier. DERMATOLOGY: Negative. INTEGUMENT: Negative. PSYCHIATRY: As mentioned earlier. PHYSICAL EXAM: Patient is alert and oriented x3. Mild dysarthria. Pulse 81, blood pressure 98/53, respirations 16, temperature 98.6, pulse ox 94% on room air. HEENT: Conjunctivae normal, oral mucosa moist. NECK: No jugular venous distention. No carotid bruit, no lymph node enlargement. CARDIOVASCULAR SYSTEM: S1, S2, muffled. RESPIRATORY: Breath sounds diminished at the bases, bilateral scattered rhonchi, no crackles. Abdomen is soft, nontender. No mass palpable. EXTREMITIES: Legs no edema, no swelling. NERVOUS SYSTEM: Higher functions as mentioned earlier. Otherwise significant weakness of the right side present, almost in the right upper limb. SKIN: No ulcer, rash or bleeding. LYMPHATICS: No lymph node enlargement in the neck, axillae or groin. JOINTS: No active deformity or arthropathy. LABS: WBC is 23.4, hemoglobin is 15.2 and glucose 145. ASSESSMENT: 1. Right lower lobe pneumonia, possibly gram-negative with sepsis. 2. Hypotension related secondary to possibly sepsis. 3. Increased WBC. 4. Diabetes mellitus, uncontrolled with hemoglobin A1c 9.5. 5. History of recent right hemiplegia. 6. Gait dysfunction. 7. Diabetes mellitus type 2. 8. Hyperlipidemia. 9. History of nicotine dependence. 10. FULL CODE. RECOMMENDATION: In this 61-year-old gentleman who presented with multiple complex medical issues, will monitor the patient closely. Continue with the current medication and continue with the symptomatic treatment. Will initiate broad-spectrum IV antibiotics. Otherwise, I would recommend Zosyn and vanco. I would also recommend Pulmonary and Infectious Disease evaluations also. The prognosis is guarded because of multiple complex medical issues. Further recommendations to follow. A copy of this will be forwarded to Dr. Nelson who is the primary care physician. LAMAR
[2016-08-11] MEDS: IPRATROPIUM-ALBUTEROL 3 ML NEB INHALATION SCH ×4 (08:42→21:20)
[2016-08-11 08:47] LABS: Glucose,Whole Blood 180 mg/dL (75-99)
[2016-08-11] MEDS: INSULIN NPH/REG INSULIN 70/30 300 UNIT/3 ML VIAL SQ SCH ×2 (09:25→22:49)
[2016-08-11 11:23] LABS: Glucose,Whole Blood 183 mg/dL (75-99)
[2016-08-11] MEDS: MULTIVITAMINS, THERA 1 EACH TAB PO SCH (13:22)
--- NOTE | 2016-08-11 13:53 | XR ---
EXAMINATION TYPE: XR chest 2V DATE OF EXAM: 08/11/2016 1:00 PM COMPARISON: 08/10/2016 TECHNIQUE: PA and lateral views submitted. HISTORY: Pneumonia FINDINGS: There is persistent left lower lobe area of consolidation. No pleural effusion. No pneumothorax. No o vert failure. IMPRESSION: 1. Left lower lobe infiltrate stable.
--- NOTE | 2016-08-11 15:59 | FL ---
EXAMINATION TYPE: FL barium swallow w video DATE OF EXAM ORDERED: 08/11/2016 1:26 PM HISTORY: Dysphagia. COMPARISON: None. TECHNIQUE: The patient was challenged with varying food substances ranging from thin liquids through solids. FINDINGS: There was minimal delay with thin liquids. The patient handled all foodstuffs well. There is no evidence of penetration or aspiration. IMPRESSION: ESSENTIALLY NORMAL DEDICATED SMALL BOWEL FOLLOW-THROUGH. FLUOROSCOPY TIME: 1.48 MINUTES,
[2016-08-11 16:57] LABS: Glucose,Whole Blood 117 mg/dL (75-99)
[2016-08-11] MEDS: PANTOPRAZOLE 40 MG TABLET PO SCH (17:55)
[2016-08-11] MEDS ORDERED: LEVOFLOXACIN 750 MG TAB PO SCH (18:00)
--- NOTE | 2016-08-11 18:02 | P.CNPUL ---
History of Present Illness Consult date: 08/11/16 Reason for consult: COPD History of present illness: 61-year-old male patient, a chronic smoker quit smoking around 3 weeks ago after he had a stroke which involved an effect in the right upper extremity. The patient came into the hospital because of some changes in his blood pressure and his heart rate. It was noted the patient's blood pressure was around 83/56 with a heart rate of 135 and this was noted by the visiting nurse. At that point the patient came into the hospital. No reported cough or sputum production. No chest tightness. No wheezing. Chest x-ray is showing adequate expansion of both lungs and there may be a limited infiltration of the left lower lung area. No nausea. No vomiting. No reported aspiration. He claims to swallow food material well. At this point in time he is on room air and his pulse ox is around 99%. His blood pressure is normalized. He is afebrile. His T-max was 99.3 from this afternoon. No leukocytosis. Review of Systems As above Past Medical History Past Medical History: COPD, CVA/TIA, Diabetes Mellitus, Hyperlipidemia Additional Past Medical History / Comment(s): CVA 3-19 History of Any Multi-Drug Resistant Organisms: None Reported Past Surgical History: No Surgical Hx Reported Past Psychological History: No Psychological Hx Reported Smoking Status: Former smoker Past Alcohol Use History: Occasional Past Drug Use History: None Reported - Past Family History Mother Family Medical History: Diabetes Mellitus Additional Family Medical History / Comment(s): Father Family Medical History: CVA/TIA Additional Family Medical History / Comment(s): Medications and Allergies Home Medications Medication Instructions Recorded Confirmed Type Glimepiride [Amaryl] 2 mg PO HS 07/20/16 08/10/16 History metFORMIN HCL [Glucophage] 500 mg PO BID 07/20/16 08/10/16 History Allergies Allergy/AdvReac Type Severity Reaction Status Date / Time No Known Allergies Allergy Verified 08/10/16 13:50 Physical Exam Vitals: Vital Signs Temp Pulse Pulse Resp BP Pulse Ox 08/11/16 16:18 99 08/11/16 15:04 79 18 08/11/16 15:00 99.3 F 80 18 144/67 99 08/11/16 08:52 72 08/11/16 08:42 72 08/11/16 08:00 79 18 08/11/16 07:00 98.4 F 79 18 111/56 92 L 08/11/16 00:00 81 16 08/10/16 20:49 98.6 F 81 16 98/50 94 L 08/10/16 20:40 98.7 F 93 18 85/48 93 L Intake and Output 08/11/16 08/11/16 08/11/16 06:59 14:59 22:59 Intake Total 1350 Output Total 200 200 200 Balance -200 1150 -200 Intake: Intake, IV Titration 1350 Amount Piperacillin-Tazobactam 3 50 .375 gm In Dextrose/Water 1 50ml.bag @ 12.5 mls/hr IVPB Q8H MICHEAL Rx#: [id number] Sodium Chloride 0.9% 1, 700 000 ml @ 100 mls/hr IV . Q10H MICHEAL Rx#:[id number] Sodium Chloride 0.9% 1, 600 000 ml @ 75 mls/hr IV . [id number] STA Rx#:[id number] Output: Urine 200 200 200 Other: Voiding Method Toilet Toilet Toilet Urinal Urinal Urinal # Voids 4 4 Head exam was generally normal. There was no scleral icterus or corneal arcus. Mucous membranes were moist.Neck was supple and without jugular venous distension, thyromegaly, or carotid bruits. Carotids were easily palpable bilaterally. There was no adenopathy. Lung sounds are diminished bilaterally otherwise it is clear and there is no wheeze or rhonchi.Cardiac exam revealed the PMI to be normally situated and sized. The rhythm was regular and no extrasystoles were noted during several minutes of auscultation. The first and second heart sounds were normal and physiologic splitting of the second heart sound was noted. There were no murmurs, rubs, clicks, or gallops.Abdominal exam revealed normal bowel sounds. The abdomen was soft, non-tender, and without masses, organomegaly, or appreciable enlargement of the abdominal aorta.Examination of the extremities revealed easily palpable radial, femoral and pedal pulses. There was no cyanosis, clubbing or edema. Neurologically the patient is awake and alert and he has some residual right upper extremity weakness. Results - Laboratory Findings CBC and BMP: 08/11/16 07:09 08/11/16 07:09 Abnormal lab findings: Abnormal Labs 08/10/16 08/10/16 08/11/16 16:43 19:28 03:15 WBC RBC Hct Neutrophils # Creatinine Glucose POC Glucose (mg/dL) 113 H Hemoglobin A1c 9.5 H Urine Glucose (UA) Urine Opiates Screen Detected H 08/11/16 08/11/16 08/11/16 03:15 07:09 07:09 WBC 12.3 H RBC 4.21 L Hct 38.2 L Neutrophils # 9.3 H Creatinine 0.65 L Glucose 130 H POC Glucose (mg/dL) Hemoglobin A1c Urine Glucose (UA) 3+ H Urine Opiates Screen 08/11/16 08/11/16 08/11/16 07:18 08:33 11:18 WBC RBC Hct Neutrophils # Creatinine Glucose POC Glucose (mg/dL) 131 H 180 H 183 H Hemoglobin A1c Urine Glucose (UA) Urine Opiates Screen 08/11/16 16:55 WBC RBC Hct Neutrophils # Creatinine Glucose POC Glucose (mg/dL) 117 H Hemoglobin A1c Urine Glucose (UA) Urine Opiates Screen - Diagnostic Findings Chest x-ray: image reviewed Assessment and Plan Plan: Assessment 1 limited left lower lobe pulmonary infiltration, rule out aspiration. 2 COPD 3 recent CVA with residual right upper extremities weakness 4 chronic history of nicotine addiction/smoking quit approximately 3 weeks ago 5 diabetes mellitus type 2 6 hypertension Plan Continue IV Zosyn. Swallow evaluation. Follow-up chest x-ray was noted. Bronchodilators.
[2016-08-11 22:47] LABS: Glucose,Whole Blood 150 mg/dL (75-99)
[2016-08-11] MEDS: ATORVASTATIN 80 MG TAB PO SCH (22:49)
[2016-08-11] MEDS: GLIMEPIRIDE 2 MG TAB PO SCH (22:49)
--- NOTE | 2016-08-11 23:06 | P.CONS ---
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 Patient was also tachycardic. Because of his significant recent medical issue he was sent to hospital. He is receiving fluid therapy and is showing some improvement. He does have a known history of COPD per chest x-ray shows evidence of a left lower lobe infiltrate. The patient relates he's been having some difficulty when he is eating of choking and constantly was concerns to an aspiration event occurring status post his stroke. The patient does relate that he is doing somewhat better with the therapies receiving so far with his right arm. He's had increased motion but still has little use of his hand at this time. He thinks overall he is getting stronger and having less difficulties with eating. He has a very slight build which she relates has not changed significantly, and she may have gained a few pounds since his event. He was a heavy tobacco smoker but is now stopped for the last 3 weeks. He was not feeling well at home. Denied high-grade fever, chills or rigors. Temperature in the 99 range. Review of Systems HEENT:Denies headache or acute visual change. Denies sinus or mouth discomforts. Denies neck stiffness or pain. Denies significant oral cavity pain. Denies difficulty on swallowing. Lungs: Was having some minimal difficulties with coughing after he was eating. Denies significant sputum production or hemoptysis. Shortness of breath is about at baseline and is noted he has a history of extensive tobacco use. Cardiovascular:Shortness of breath at baseline; denies chest pain, chest wall pain, orthopnea, dyspnea on exertion, syncope Gastrointestinal:Denies nausea, vomiting, diarrhea, constipation, hematemesis, melena, hematochezia. No no significant change of bowel habit noticed. Musculoskeletal: denies significant myalgias or arthralgias. No new joint swelling. Denies new back pain. Skin: Denies new rash or lesions. No new ulcers or wounds are related.. Neuro: Denies headache or visual change. Relates the right-sided weakness is starting to improve and is able to ambulate without great difficulties. Psychiatric:Denies anxiety or depression. Endocrine: Denies significant fatigue,approximate 5 pound weight gain Past Medical History Past Medical History: COPD, CVA/TIA, Diabetes Mellitus, Hyperlipidemia Additional Past Medical History / Comment(s): CVA 3-19 History of Any Multi-Drug Resistant Organisms: None Reported Past Surgical History: No Surgical Hx Reported Past Psychological History: No Psychological Hx Reported Additional Psychological History / Comment(s): Lives with his significant other. 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 Denies a history of alcohol use or recreational drug use. No experience. No international travel. Pet dogs in the home they're not new. Father from a stroke in his 50s he was a smoker. He has no children. Smoking Status: Former smoker (Stopped 3 weeks ago) Past Alcohol Use History: Occasional Past Drug Use History: None Reported - Past Family History Mother Family Medical History: Diabetes Mellitus Additional Family Medical History / Comment(s): Father Family Medical History: CVA/TIA Additional Family Medical History / Comment(s): Medications and Allergies Home Medications and Allergies Comment(s): Current Medications Albuterol/Ipratropium (Duoneb 0.5 Mg-3 Mg/3 Ml Soln) 3 ml INHALATION RT-QID [facility] Last Admin: 08/11/16 21:20 Dose: Not Given Albuterol/Ipratropium (Duoneb 0.5 Mg-3 Mg/3 Ml Soln) 3 ml INHALATION RT-Q2H PRN PRN Reason: Shortness Of Breath Or Wheezing Aspirin (Aspirin) 325 mg PO DAILY [facility] Last Admin: 08/11/16 07:47 Dose: 325 mg Atorvastatin Calcium (Lipitor) 80 mg PO HS [facility] Last Admin: 08/10/16 22:43 Dose: 80 mg Glimepiride (Amaryl) 2 mg PO HS [facility] Last Admin: 08/10/16 22:43 Dose: Not Given Heparin Sodium (Porcine) (Heparin) 5,000 unit SQ Q12HR [facility] Last Admin: 08/11/16 07:47 Dose: 5,000 unit Sodium Chloride (Saline 0.9%) 1,000 mls @ 100 mls/hr IV .Q10H [facility] Last Admin: 08/11/16 17:09 Dose: 100 mls/hr Piperacillin/Tazobactam/ (Dextrose 3.375 gm/ IV Solution) 50 mls @ 12.5 mls/hr IVPB Q8H [facility] Last Admin: 08/11/16 16:06 Dose: 12.5 mls/hr Insulin Human Isoph/Insulin Regular (Humulin 70/30 Vial) 14 unit SQ BID [facility] Last Admin: 08/11/16 09:25 Dose: 14 unit Insulin Human Lispro (Humalog) 0 unit SQ ACHS [facility] PRN Reason: Protocol Last Admin: 08/11/16 17:06 Dose: Not Given Metformin HCl (Glucophage) 500 mg PO BID-W/MEALS [facility] Last Admin: 08/11/16 17:53 Dose: 500 mg Miscellaneous Information (Pneumonia Protocol Utilized) 1 each PO ONCE PRN PRN Reason: Per Protocol Multivitamins (Theragran) 1 each PO DAILY@1200 [facility] Last Admin: 08/11/16 13:22 Dose: 1 each Pantoprazole Sodium (Protonix) 40 mg PO AC-BID [facility] Last Admin: 08/11/16 17:55 Dose: 40 mg Home Medications Medication Instructions Recorded Confirmed Type Glimepiride [Amaryl] 2 mg PO HS 07/20/16 08/10/16 History metFORMIN HCL [Glucophage] 500 mg PO BID 07/20/16 08/10/16 History Allergies Allergy/AdvReac Type Severity Reaction Status Date / Time No Known Allergies Allergy Verified 08/10/16 13:50 Physical Exam Vitals: Vital Signs Temp Pulse Pulse Resp BP Pulse Ox 08/11/16 20:54 98.2 F 80 16 118/56 94 L 08/11/16 16:18 99 08/11/16 15:04 79 18 08/11/16 15:00 99.3 F 80 18 144/67 99 08/11/16 08:52 72 08/11/16 08:42 72 08/11/16 08:00 79 18 08/11/16 07:00 98.4 F 79 18 111/56 92 L 08/11/16 00:00 81 16 Intake and Output 08/11/16 08/11/16 08/11/16 06:59 14:59 22:59 Intake Total 1350 Output Total 200 200 200 Balance -200 1150 -200 Intake: Intake, IV Titration 1350 Amount Piperacillin-Tazobactam 3 50 .375 gm In Dextrose/Water 1 50ml.bag @ 12.5 mls/hr IVPB Q8H [facility] Rx#: [id number] Sodium Chloride 0.9% 1, 700 000 ml @ 100 mls/hr IV . Q10H [facility] Rx#:[id number] Sodium Chloride 0.9% 1, 600 000 ml @ 75 mls/hr IV . [id number] [facility] Rx#:[id number] Output: Urine 200 200 200 Other: Voiding Method Toilet Toilet Toilet Urinal Urinal Urinal # Voids 4 4 HEENT: Anicteric conjunctiva are pink and moist nasal mucosa grossly intact without significant lesions, there is no thrush. Neck: The neck is supple without significant lymphadenopathy or thyromegaly. Lungs: Symmetrical air entry with expiratory wheezes and a few crackles in the left base without ernique bronchial sounds or egophony Heart: Regular rate and rhythm with an audible S1-S2, no S3 soft S4. There is no significant murmur click or rub, PMI was nondisplaced. Abdomen: Positive bowel sounds soft and nontender without palpable masses or organomegaly. There was no guarding or rebound. Extremities: The upper extremities have excellent pulses they are symmetric, no significant petechiae or telangiectasia. No splinter hemorrhages were noted. The lower extremities are free from significant edema. The peripheral pulses were 2+ and symmetric. Neuro: Awake alert oriented to person place and time. He has a right upper extremity hemiparesis with ability to move the arm but has limited use of the hand. Right leg has muscle strength 4 out of 5. The patient has a symmetrical smile. Tongue is without deviation neck strength is symmetric. Results CBC & Chem 7: 08/11/16 07:09 08/11/16 07:09 Labs: Abnormal Lab Results - Last 24 Hours (Table) 08/11/16 08/11/16 08/11/16 Range/Units 03:15 03:15 07:09 WBC 12.3 H (3.8-10.6) k/uL RBC 4.21 L (4.30-5.90) m/uL Hct 38.2 L (39.0-53.0) % Neutrophils # 9.3 H (1.3-7.7) k/uL Creatinine (0.66-1.25) mg/dL Glucose (74-99) mg/dL POC Glucose (mg/dL) (75-99) mg/dL Urine Glucose (UA) 3+ H (Negative) Urine Opiates Screen Detected H (NotDetected) 08/11/16 08/11/16 08/11/16 Range/Units 07:09 07:18 08:33 WBC (3.8-10.6) k/uL RBC (4.30-5.90) m/uL Hct (39.0-53.0) % Neutrophils # (1.3-7.7) k/uL Creatinine 0.65 L (0.66-1.25) mg/dL Glucose 130 H (74-99) mg/dL POC Glucose (mg/dL) 131 H 180 H (75-99) mg/dL Urine Glucose (UA) (Negative) Urine Opiates Screen (NotDetected) 08/11/16 08/11/16 Range/Units 11:18 16:55 WBC (3.8-10.6) k/uL RBC (4.30-5.90) m/uL Hct (39.0-53.0) % Neutrophils # (1.3-7.7) k/uL Creatinine (0.66-1.25) mg/dL Glucose (74-99) mg/dL POC Glucose (mg/dL) 183 H 117 H (75-99) mg/dL Urine Glucose (UA) (Negative) Urine Opiates Screen (NotDetected) Laboratory Results WBC 12.3 k/uL (3.8-10.6) H 08/11/16 07:09 RBC 4.21 m/uL (4.30-5.90) L 08/11/16 07:09 Hgb 13.4 gm/dL (13.0-17.5) 08/11/16 07:09 Hct 38.2 % (39.0-53.0) L 08/11/16 07:09 MCV 90.9 fL (80.0-100.0) 08/11/16 07:09 MCH 31.8 pg (25.0-35.0) 08/11/16 07:09 MCHC 35.0 g/dL (31.0-37.0) 08/11/16 07:09 RDW 13.8 % (11.5-15.5) 08/11/16 07:09 Plt Count 276 k/uL (150-450) 08/11/16 07:09 Neutrophils % 76 % 08/11/16 07:09 Lymphocytes % 15 % 08/11/16 07:09 Monocytes % 5 % 08/11/16 07:09 Eosinophils % 2 % 08/11/16 07:09 Basophils % 1 % 08/11/16 07:09 Neutrophils # 9.3 k/uL (1.3-7.7) H 08/11/16 07:09 Lymphocytes # 1.8 k/uL (1.0-4.8) 08/11/16 07:09 Monocytes # 0.6 k/uL (0-1.0) 08/11/16 07:09 Eosinophils # 0.3 k/uL (0-0.7) 08/11/16 07:09 Basophils # 0.1 k/uL (0-0.2) 08/11/16 07:09 Sodium 137 mmol/L (137-145) 08/11/16 07:09 Potassium 4.5 mmol/L (3.5-5.1) 08/11/16 07:09 Chloride 106 mmol/L (98-107) 08/11/16 07:09 Carbon Dioxide 23 mmol/L (22-30) 08/11/16 07:09 Anion Gap 8 mmol/L 08/11/16 07:09 BUN 17 mg/dL (9-20) 08/11/16 07:09 Creatinine 0.65 mg/dL (0.66-1.25) L 08/11/16 07:09 Est GFR (MDRD) Af Amer >60 (>60 ml/min/1.73 sqM) 08/11/16 07:09 Est GFR (MDRD) Non-Af >60 (>60 ml/min/1.73 sqM) 08/11/16 07:09 Glucose 130 mg/dL (74-99) H 08/11/16 07:09 POC Glucose (mg/dL) 150 mg/dL (75-99) H 08/11/16 22:44 POC Glu Digital Associate Media Director KEZIA MariaA [place] 08/11/16 22:[address] Glu mg/dL 226 mg/dL 08/10/16 16:43 Hemoglobin A1c 9.5 % (4.2-6.1) H 08/10/16 16:43 Plasma Lactic Acid Scout 1.0 mmol/L (0.7-2.0) 08/10/16 21:17 Calcium 8.8 mg/dL (8.4-10.2) 08/11/16 07:09 Magnesium 1.7 mg/dL (1.6-2.3) 08/10/16 12:45 Total Bilirubin 0.7 mg/dL (0.2-1.3) 08/10/16 12:45 AST 18 U/L (17-59) 08/10/16 12:45 ALT 30 U/L (21-72) 08/10/16 12:45 Alkaline Phosphatase 123 U/L (38-126) 08/10/16 12:45 Total Creatine Kinase 28 U/L (55-170) L 08/10/16 12:45 CK-MB (CK-2) 0.7 ng/mL (0.0-2.4) 08/10/16 12:45 CK-MB (CK-2) Rel Index 2.5 08/10/16 12:45 Total Protein 6.8 g/dL (6.3-8.2) 08/10/16 12:45 Albumin 3.9 g/dL (3.5-5.0) 08/10/16 12:45 Urine Color Yellow 08/11/16 03:15 Urine Appearance Clear (Clear) 08/11/16 03:15 Urine pH 5.0 (5.0-8.0) 08/11/16 03:15 Ur Specific Kiln 1.017 (1.001-1.035) 08/11/16 03:15 Urine Protein Negative (Negative) 08/11/16 03:15 Urine Glucose (UA) 3+ (Negative) H 08/11/16 03:15 Urine Ketones Negative (Negative) 08/11/16 03:15 Urine Blood Negative (Negative) 08/11/16 03:15 Urine Nitrite Negative (Negative) 08/11/16 03:15 Urine Bilirubin Negative (Negative) 08/11/16 03:15 Urine Urobilinogen <2.0 mg/dL (<2.0) 08/11/16 03:15 Ur Leukocyte Esterase Negative (Negative) 08/11/16 03:15 Urine Opiates Screen Detected (NotDetected) H 08/11/16 03:15 Ur Oxycodone Screen Not Detected (NotDetected) 08/11/16 03:15 Urine Methadone Screen Not Detected (NotDetected) 08/11/16 03:15 Ur Propoxyphene Screen Not Detected (NotDetected) 08/11/16 03:15 Ur Barbiturates Screen Not Detected (NotDetected) 08/11/16 03:15 U Tricyclic Antidepress Not Detected (NotDetected) 08/11/16 03:15 Ur Phencyclidine Scrn Not Detected (NotDetected) 08/11/16 03:15 Ur Amphetamines Screen Not Detected (NotDetected) 08/11/16 03:15 U Methamphetamines Scrn Not Detected (NotDetected) 08/11/16 03:15 U Benzodiazepines Scrn Not Detected (NotDetected) 08/11/16 03:15 Urine Cocaine Screen Not Detected (NotDetected) 08/11/16 03:15 U Marijuana (THC) Screen Not Detected (NotDetected) 08/11/16 03:15 Microbiology 08/10/16 14:50 Blood Blood Culture - Preliminary No Growth after 24 hours Assessment and Plan (1) CVA (cerebral vascular accident) Status: Acute (2) Aspiration pneumonia Narrative/Plan: 61-year-old male who has a history of a stroke 3 weeks ago who presents to hospital with relative hypotension and tachycardia when he was evaluated by his nurse. Was referred to hospital and now with resuscitation is showing some improvement. He is denying any intermittent difficulties. X-ray was abnormal with concerns to aspiration pneumonia. He is placed on antibiotic therapy with piperacillin tazobactam with improvement. Swallow study was performed without evidence of penetration. He is showing some improvement. Physical continues to improve would be a candidate for transition to oral antibiotic therapy with Augmentin, if he is having difficulty with pills can be given as an elixir. It does appear that his hypotension is resolved. We do well to have ongoing treatments for his underlying COPD when he is discharged. Status: Acute
--- NOTE | 2016-08-11 23:26 | PN ---
DATE OF SERVICE: 08/11/2016 This 61-year-old gentleman admitted with right lower lobe pneumonia, possibly gram-negative, early signs of sepsis on presentation. The patient on broad spectrum IV antibiotics. No chest pains. No palpitations. No fever. White count is still elevated at 12.3, Dr. Banerjee is following the patient. The patient started on empiric antibiotics. The patient also had video fluoroscopy swallow study, which showed a normal exam ruling out the possibility of aspiration. PAST MEDICAL HISTORY: Reviewed. REVIEW OF SYSTEMS: CARDIOVASCULAR: No angina or palpitations. RESPIRATORY: As mentioned earlier. GI: As mentioned earlier. GENITOURINARY: No dysuria. Current medications: 1. Duoneb q.i.d. and p.r.n. 2. Aspirin 320 mg. 3. Lipitor 80 mg. 4. Amaryl 2 mg 5. Heparin 5000 units subcu b.i.d. 6. Insulin 70/30 40 units subcu b.i.d. 7. Humalog to scale. 8. Glucophage 500 mg b.i.d. 9. Multivitamins one p.o. daily. 10. Protonix 40 mg daily. 11. Zosyn 3.37 IV q.8. PHYSICAL EXAM: Patient is alert and oriented times three. Pulse 80, blood pressure 140/61, respirations 18, temperature 99.4, pulse ox 99% on room air. HEENT: Conjunctivae normal. Oral mucosa moist. NECK: No jugular venous distention. No carotid bruit. No lymph node enlargement. CARDIOVASCULAR: S1, S2 muffled. RESPIRATORY: Breath sounds diminished at the bases. Bilateral scattered rhonchi and crackles. Breathing efforts are markedly increased. ABDOMEN: Soft. Nontender. LEGS: No edema. No swelling. CENTRAL NERVOUS SYSTEM: Right-sided weakness present. Labs: WBC is 12.4, hemoglobin 13.4, Accu-Cheks are noted. Drug screen is positive for opiates. Urine 3+ glucose. ASSESSMENT: 1. Right lower lobe pneumonia, possibly gram-negative with sepsis. 2. Hypotension related to possibly sepsis, present on admission. 3. Increased WBC. 4. Type, uncontrolled with hemoglobin A1C 9.5. 5. History of recent right hemiplegia. 6. Gait dysfunction. 7. Diabetes mellitus type 2. 8. Hyperlipidemia. 9. History of nicotine dependence. 10. Reactive bronchospasm rule out chronic obstructive pulmonary disease. RECOMMENDATIONS AND DISCUSSION: In this 61-year-old gentleman who presented with multiple complex medical issues, we will monitor the patient closely. Continue the current medications. Continue bronchodilators. Continue with broad-spectrum IV antibiotics. Dr. Banerjee and Dr. De Luna has been consulted. Otherwise, I would also recommend PT, OT evaluation and evaluate for the home situation as well. Speech pathology has cleared the patient with modified barium swallow. However, we will continue to monitor. Prognosis guarded because of multiple complex medical issues. Discussed with the patient, understands and agrees. Further recommendations to follow. MTDD
[2016-08-12] MEDS: PIPERACILLIN-TAZOBACTAM 3.375 GM in DEXTROSE/WATER 1 50ML.BAG IVPB SCH ×2 (01:02→07:42)
[2016-08-12 07:26] LABS: Glucose,Whole Blood 96 mg/dL (75-99)
[2016-08-12] MEDS: IPRATROPIUM-ALBUTEROL 3 ML NEB INHALATION SCH ×2 (07:34→11:22)
[2016-08-12] MEDS: HEPARIN SODIUM,PORCINE 5,000 UNIT/ML 1 ML VIAL SQ SCH (07:39)
[2016-08-12] MEDS: ASPIRIN 325 MG TAB PO SCH (07:40)
[2016-08-12] MEDS: metFORMIN 500 MG TAB PO SCH (07:40)
[2016-08-12] MEDS: PANTOPRAZOLE 40 MG TABLET PO SCH (07:40)
[2016-08-12] MEDS: INSULIN LISPRO (humaLOG) 300 UNIT/3 ML VIAL SQ SCH ×2 (07:41→12:31)
[2016-08-12] MEDS: INSULIN NPH/REG INSULIN 70/30 300 UNIT/3 ML VIAL SQ SCH (07:42)
[2016-08-12] MEDS: SODIUM CHLORIDE 0.9% 1,000 ML IV SCH (07:42)
[2016-08-12 08:20] LABS: Basophils # (A) 0.1 k/uL (0-0.2); Basophils % (A) 1 %; CH 32.7; Eosinophils # (A) 0.2 k/uL (0-0.7); Eosinophils % (A) 2 %; HDW 3.01; Luc % (Auto) 2; Lymphocytes # (A) 2.3 k/uL (1.0-4.8); Lymphocytes % (A) 26 %; MCH 31.2 pg (25.0-35.0); MCHC 34.2 g/dL (31.0-37.0); MCV 91.3 fL (80.0-100.0); Mean Platelet Volume 7.4; Monocytes # (A) 0.5 k/uL (0-1.0); Monocytes % (A) 6 %; Neutrophils # (A) 5.7 k/uL (1.3-7.7); Neutrophils % (A) 64 %; RBC 4.16 m/uL (4.30-5.90); RDW 14.1 % (11.5-15.5); WBC 8.9 k/uL (3.8-10.6); WBC (Perox) 8.98
[2016-08-12 08:24] LABS: Anion Gap 8 mmol/L; Blood Urea Nitrogen 13 mg/dL (9-20); Carbon Dioxide 26 mmol/L (22-30); Chloride 103 mmol/L (98-107); Glucose 96 mg/dL (74-99); Non-African American GFR(MDRD) >60 (>60 ml/min/1.73 sqM); Potassium 4.2 mmol/L (3.5-5.1); Sodium 137 mmol/L (137-145)
[2016-08-12 11:59] LABS: Glucose,Whole Blood 78 mg/dL (75-99)
[2016-08-12] MEDS: MULTIVITAMINS, THERA 1 EACH TAB PO SCH (12:31)
--- NOTE | 2016-08-12 13:47 | P.PN ---
Subjective 61-year-old male patient, a chronic smoker quit smoking around 3 weeks ago after he had a stroke which involved an effect in the right upper extremity. The patient came into the hospital because of some changes in his blood pressure and his heart rate. It was noted the patient's blood pressure was around 83/56 with a heart rate of 135 and this was noted by the visiting nurse. At that point the patient came into the hospital. No reported cough or sputum production. No chest tightness. No wheezing. Chest x-ray is showing adequate expansion of both lungs and there may be a limited infiltration of the left lower lung area. No nausea. No vomiting. No reported aspiration. He claims to swallow food material well. At this point in time he is on room air and his pulse ox is around 99%. His blood pressure is normalized. He is afebrile. His T-max was 99.3 from this afternoon. No leukocytosis. The patient is seen again today 08/12/2016 in follow-up. He is in no acute distress. He is maintaining good O2 saturations in the mid 90s on room air. He has been afebrile. No leukocytosis. He has been hemodynamically stable. His blood cultures reveal no growth. Objective - Vital Signs Vital signs: Vital Signs Temp 98.2 F 08/11/16 20:54 Pulse 80 08/12/16 00:00 Resp 16 08/12/16 00:00 BP 118/56 08/11/16 20:54 Pulse Ox 94 L 08/11/16 20:54 Intake & Output 08/11/16 08/12/16 08/12/16 18:59 06:59 18:59 Intake Total 1350 1480 Output Total 400 500 Balance 950 980 Intake: Intake, IV Titration 1350 1000 Amount Piperacillin-Tazobactam 3 50 .375 gm In Dextrose/Water 1 50ml.bag @ 12.5 mls/hr IVPB Q8H [facility] Rx#: [id number] Sodium Chloride 0.9% 1, 700 1000 000 ml @ 100 mls/hr IV . Q10H [facility] Rx#:[id number] Sodium Chloride 0.9% 1, 600 000 ml @ 75 mls/hr IV . [id number] [facility] Rx#:[id number] Oral 480 Output: Urine 400 500 Other: Voiding Method Toilet Toilet Urinal Urinal # Voids 4 2 - Exam Head exam was generally normal. There was no scleral icterus or corneal arcus. Mucous membranes were moist.Neck was supple and without jugular venous distension, thyromegaly, or carotid bruits. Carotids were easily palpable bilaterally. There was no adenopathy. Lung sounds are diminished bilaterally otherwise it is clear and there is no wheeze or rhonchi.Cardiac exam revealed the PMI to be normally situated and sized. The rhythm was regular and no extrasystoles were noted during several minutes of auscultation. The first and second heart sounds were normal and physiologic splitting of the second heart sound was noted. There were no murmurs, rubs, clicks, or gallops.Abdominal exam revealed normal bowel sounds. The abdomen was soft, non-tender, and without masses, organomegaly, or appreciable enlargement of the abdominal aorta.Examination of the extremities revealed easily palpable radial, femoral and pedal pulses. There was no cyanosis, clubbing or edema. Neurologically the patient is awake and alert and he has some residual right upper extremity weakness. - Labs CBC & Chem 7: 08/12/16 07:32 08/12/16 07:32 Labs: Abnormal Lab Results - Last 24 Hours (Table) 08/11/16 08/11/16 08/12/16 Range/Units 16:55 22:44 07:32 RBC 4.16 L (4.30-5.90) m/uL Hct 38.0 L (39.0-53.0) % POC Glucose (mg/dL) 117 H 150 H (75-99) mg/dL Assessment and Plan Plan: Assessment 1 limited left lower lobe pulmonary infiltration, rule out aspiration. 2 COPD 3 recent CVA with residual right upper extremities weakness 4 chronic history of nicotine addiction/smoking quit approximately 3 weeks ago 5 diabetes mellitus type 2 6 hypertension Plan: The patient was seen and evaluated by Dr. Banerjee. He is stable from the pulmonary standpoint and could be discharged home once cleared medically. He did complete his course of antibiotics. Bronchodilators as needed.
[2016-08-12 14:50] VITALS: BMI 30.2
[2016-08-12 15:40] VITALS: BP 115/62; PULSE 75; RESP 18; TEMP 98.8
--- NOTE | 2016-08-12 22:14 | P.PN ---
Subjective Principal diagnosis: fever and shortness of breath Pleasant 61-year-old male who is now 3 weeks status post left MCA stroke with significant right hemiparesis mostly of the upper extremity presents after being evaluated by the home care nurse rather was difficulty with relative hypotension. Patient was also tachycardic. Because of his significant recent medical issue he was sent to hospital. He is receiving fluid therapy and is showing some improvement. He does have a known history of COPD per chest x-ray shows evidence of a left lower lobe infiltrate. The patient relates he's been having some difficulty when he is eating of choking and constantly was concerns to an aspiration event occurring status post his stroke. The patient does relate that he is doing somewhat better with the therapies receiving so far with his right arm. He's had increased motion but still has little use of his hand at this time. He thinks overall he is getting stronger and having less difficulties with eating. He has a very slight build which she relates has not changed significantly, and she may have gained a few pounds since his event. He was a heavy tobacco smoker but is now stopped for the last 3 weeks. Feeling much better now less SOB Objective - Vital Signs Vital signs: Vital Signs Temp 98.8 F 08/12/16 07:00 Pulse 75 08/12/16 07:00 Resp 18 08/12/16 07:00 BP 115/62 08/12/16 07:00 Pulse Ox 92 L 08/12/16 07:00 Intake & Output 08/12/16 08/12/16 08/13/16 06:59 18:59 06:59 Intake Total 1480 Output Total 500 Balance 980 Weight 70.307 kg Intake: Intake, IV Titration 1000 Amount Sodium Chloride 0.9% 1, 1000 000 ml @ 100 mls/hr IV . Q10H [facility] Rx#:[id number] Oral 480 Output: Urine 500 Other: Voiding Method Toilet Urinal # Voids 2 - Exam HEENT: Anicteric conjunctiva are pink and moist nasal mucosa grossly intact without significant lesions, there is no thrush. Neck: The neck is supple without significant lymphadenopathy or thyromegaly. Lungs: Symmetrical air entry with expiratory wheezes and a few crackles in the left base without enrique bronchial sounds or egophony Heart: Regular rate and rhythm with an audible S1-S2, no S3 soft S4. There is no significant murmur click or rub, PMI was nondisplaced. Abdomen: Positive bowel sounds soft and nontender without palpable masses or organomegaly. There was no guarding or rebound. Extremities: The upper extremities have excellent pulses they are symmetric, no significant petechiae or telangiectasia. No splinter hemorrhages were noted. The lower extremities are free from significant edema. The peripheral pulses were 2+ and symmetric. Neuro: Awake alert oriented to person place and time. He has a right upper extremity hemiparesis with ability to move the arm but has limited use of the hand. Right leg has muscle strength 4 out of 5. The patient has a symmetrical smile. Tongue is without deviation neck strength is symmetric. - Labs CBC & Chem 7: 08/12/16 07:32 08/12/16 07:32 Labs: Abnormal Lab Results - Last 24 Hours (Table) 08/11/16 08/12/16 Range/Units 22:44 07:32 RBC 4.16 L (4.30-5.90) m/uL Hct 38.0 L (39.0-53.0) % POC Glucose (mg/dL) 150 H (75-99) mg/dL Laboratory Results WBC 8.9 k/uL (3.8-10.6) 08/12/16 07:32 RBC 4.16 m/uL (4.30-5.90) L 08/12/16 07:32 Hgb 13.0 gm/dL (13.0-17.5) 08/12/16 07:32 Hct 38.0 % (39.0-53.0) L 08/12/16 07:32 MCV 91.3 fL (80.0-100.0) 08/12/16 07:32 MCH 31.2 pg (25.0-35.0) 08/12/16 07:32 MCHC 34.2 g/dL (31.0-37.0) 08/12/16 07:32 RDW 14.1 % (11.5-15.5) 08/12/16 07:32 Plt Count 268 k/uL (150-450) 08/12/16 07:32 Neutrophils % 64 % 08/12/16 07:32 Lymphocytes % 26 % 08/12/16 07:32 Monocytes % 6 % 08/12/16 07:32 Eosinophils % 2 % 08/12/16 07:32 Basophils % 1 % 08/12/16 07:32 Neutrophils # 5.7 k/uL (1.3-7.7) 08/12/16 07:32 Lymphocytes # 2.3 k/uL (1.0-4.8) 08/12/16 07:32 Monocytes # 0.5 k/uL (0-1.0) 08/12/16 07:32 Eosinophils # 0.2 k/uL (0-0.7) 08/12/16 07:32 Basophils # 0.1 k/uL (0-0.2) 08/12/16 07:32 Sodium 137 mmol/L (137-145) 08/12/16 07:32 Potassium 4.2 mmol/L (3.5-5.1) 08/12/16 07:32 Chloride 103 mmol/L (98-107) 08/12/16 07:32 Carbon Dioxide 26 mmol/L (22-30) 08/12/16 07:32 Anion Gap 8 mmol/L 08/12/16 07:32 BUN 13 mg/dL (9-20) 08/12/16 07:32 Creatinine 0.73 mg/dL (0.66-1.25) 08/12/16 07:32 Est GFR (MDRD) Af Amer >60 (>60 ml/min/1.73 sqM) 08/12/16 07:32 Est GFR (MDRD) Non-Af >60 (>60 ml/min/1.73 sqM) 08/12/16 07:32 Glucose 96 mg/dL (74-99) 08/12/16 07:32 POC Glucose (mg/dL) 78 mg/dL (75-99) 08/12/16 11:49 POC Glu Ice Skating Coach ID Mariaa Merino 08/12/16 11:[address] Glu mg/dL 226 mg/dL 08/10/16 16:43 Hemoglobin A1c 9.5 % (4.2-6.1) H 08/10/16 16:43 Plasma Lactic Acid Scout 1.0 mmol/L (0.7-2.0) 08/10/16 21:17 Calcium 9.0 mg/dL (8.4-10.2) 08/12/16 07:32 Magnesium 1.7 mg/dL (1.6-2.3) 08/10/16 12:45 Total Bilirubin 0.7 mg/dL (0.2-1.3) 08/10/16 12:45 AST 18 U/L (17-59) 08/10/16 12:45 ALT 30 U/L (21-72) 08/10/16 12:45 Alkaline Phosphatase 123 U/L (38-126) 08/10/16 12:45 Total Creatine Kinase 28 U/L (55-170) L 08/10/16 12:45 CK-MB (CK-2) 0.7 ng/mL (0.0-2.4) 08/10/16 12:45 CK-MB (CK-2) Rel Index 2.5 08/10/16 12:45 Total Protein 6.8 g/dL (6.3-8.2) 08/10/16 12:45 Albumin 3.9 g/dL (3.5-5.0) 08/10/16 12:45 Urine Color Yellow 08/11/16 03:15 Urine Appearance Clear (Clear) 08/11/16 03:15 Urine pH 5.0 (5.0-8.0) 08/11/16 03:15 Ur Specific [place] 1.017 (1.001-1.035) 08/11/16 03:15 Urine Protein Negative (Negative) 08/11/16 03:15 Urine Glucose (UA) 3+ (Negative) H 08/11/16 03:15 Urine Ketones Negative (Negative) 08/11/16 03:15 Urine Blood Negative (Negative) 08/11/16 03:15 Urine Nitrite Negative (Negative) 08/11/16 03:15 Urine Bilirubin Negative (Negative) 08/11/16 03:15 Urine Urobilinogen <2.0 mg/dL (<2.0) 08/11/16 03:15 Ur Leukocyte Esterase Negative (Negative) 08/11/16 03:15 Urine Opiates Screen Detected (NotDetected) H 08/11/16 03:15 Ur Oxycodone Screen Not Detected (NotDetected) 08/11/16 03:15 Urine Methadone Screen Not Detected (NotDetected) 08/11/16 03:15 Ur Propoxyphene Screen Not Detected (NotDetected) 08/11/16 03:15 Ur Barbiturates Screen Not Detected (NotDetected) 08/11/16 03:15 U Tricyclic Antidepress Not Detected (NotDetected) 08/11/16 03:15 Ur Phencyclidine Scrn Not Detected (NotDetected) 08/11/16 03:15 Ur Amphetamines Screen Not Detected (NotDetected) 08/11/16 03:15 U Methamphetamines Scrn Not Detected (NotDetected) 08/11/16 03:15 U Benzodiazepines Scrn Not Detected (NotDetected) 08/11/16 03:15 Urine Cocaine Screen Not Detected (NotDetected) 08/11/16 03:15 U Marijuana (THC) Screen Not Detected (NotDetected) 08/11/16 03:15 Microbiology 08/10/16 14:50 Blood Blood Culture - Preliminary No Growth after 48 hours Assessment and Plan (1) CVA (cerebral vascular accident) Status: Acute (2) Aspiration pneumonia Narrative/Plan: 61-year-old male who has a history of a stroke 3 weeks ago who presents to hospital with relative hypotension and tachycardia when he was evaluated by his nurse. Was referred to hospital and now with resuscitation is showing some improvement. He is denying any intermittent difficulties. X-ray was abnormal with concerns to aspiration pneumonia. He is placed on antibiotic therapy with piperacillin tazobactam with improvement. Swallow study was performed without evidence of penetration. He is showing some improvement. Has further improved would be a candidate for transition to oral antibiotic therapy with Augmentin, if he is having difficulty with pills can be given as an elixir. We do well to have ongoing treatments for his underlying COPD when he is discharged. Status: Acute
--- NOTE | 2016-08-13 12:51 | DS ---
DATE OF ADMISSION: 08/10/2016 DATE OF DISCHARGE: 08/12/2016 FINAL DIAGNOSES: 1. Acute right lower lobe pneumonia, possibly gram-negative with sepsis, present on admission. 2. Hypotension related to possibly sepsis, present on admission, improved. 3. Increased WBC secondary to pneumonia. 4. Diabetes type 2, uncontrolled with hemoglobin A1c 9.5. 5. History of recent right hemiplegia. 6. Gait dysfunction. 7. Hyperlipidemia. 8. History nicotine dependence. 9. Reactive bronchospasm, possibly chronic obstructive pulmonary disease. DISCHARGE DISPOSITION: The patient will be discharged in a stable condition with guarded prognosis. Discharge cleared by Dr. Banerjee. Total time taken 35 minutes. HISTORY OF PRESENT ILLNESS: This 61-year-old gentleman with a past medical history of multiple medical problems admitted with right lower lobe pneumonia, possibly sepsis and hypotension, treated with bronchodilators and antibiotics, improved significantly. Dr. Banerjee saw the patient. On exam, vitals are stable. CARDIOVASCULAR SYSTEM: S1, S2, muffled. RESPIRATORY: A few scattered rhonchi. ABDOMEN: Soft, nontender. NERVOUS SYSTEM: Right hemiplegia. Barium swallow was done with speech pathology because of concerns of aspiration, which was proven to be negative. DISCHARGE ADVICE: 1. Diet is cardiac. 2. Activity limited until followup. 3. Follow up with Dr. Nelson in 2 to 3 days. 4. Follow up with Dr. Banerjee as recommended. Medications are: 1. Augmentin 875 mg p.o. b.i.d. for one week. 2. Aspirin 325 mg daily. 3. Lipitor 80 mg q.h.s. 4. Amaryl 2 mg p.o. q.h.s. 5. Insulin NPH 14 units subcu b.i.d. 6. Albuterol Atrovent [facility]. 7. Albuterol inhaler 2 puffs q.i.d. 8. Multivitamin 1 p.o. daily. 9. Protonix 40 mg b.i.d. 10. Glucophage 500 mg p.o. b.i.d. Once again, the patient will be discharged in stable condition guarded prognosis. Total time taken 35 minutes.
== END 2016-08-12 17:20 | disposition home health service (06) | DRG 871 ==
LOC: EC 12:17 → 5MS5E 16:41
PROVIDERS: ADMIT Internal Medicine; ATTEND Internal Medicine
DX: A41.9 Sepsis, unspecified organism (principal); J69.0 Pneumonitis due to inhalation of food and vomit; I69.351 Hemiplegia and hemiparesis following cerebral infarction affecting right dominant side; E11.65 Type 2 diabetes mellitus with hyperglycemia; I10 Essential (primary) hypertension; E78.5 Hyperlipidemia, unspecified; E86.0 Dehydration; F17.200 Nicotine dependence, unspecified, uncomplicated; J44.9 Chronic obstructive pulmonary disease, unspecified; J98.01 Acute bronchospasm; Z79.82 Long term (current) use of aspirin; Z79.84 Long term (current) use of oral hypoglycemic drugs; Z79.899 Other long term (current) drug therapy; Z82.3 Family history of stroke; Z83.3 Family history of diabetes mellitus
CPT/HCPCS: 36415; 71020; 74230; 80048; 80053; 80306; 81003; 82550; 82553; 83036; 83605; 83735; 85025; 87040; 93005; 94640; 96361; 96365; 99291

== ENCOUNTER → 2016-11-16 | Outpatient (CLI) | payer OTHER ==
--- NOTE | 2016-11-16 22:25 | MR ---
EXAMINATION TYPE: MR shoulder RT wo con DATE OF EXAM: 11/16/2016 COMPARISON: None available HISTORY: 61-year-old male with right shoulder pain TECHNIQUE: Multiplanar, multisequence imaging of the right shoulder is performed without contrast. FINDINGS: The long head biceps tendon appears intact and appropriately situated along the bicipital groove. The re is mild tenosynovial fluid along the bicipital groove. Tiny 4 mm long intrasubstance tear of the mid subscapularis tendon at the footprint. The majority of the subscapularis tendon remains intact. Mild degenerative joint space narrowing with marginal spurring and capsular hypertrophy at the acromi oclavicular joint. No significant impingement onto the underlying cuff. There is trace thickening of the subacromial bursa. Severe thickening of the supraspinatus tendon with increased signal and possible tiny 4 mm intrasubst ance tear. The infraspinatus tendon is intact. No tear is seen communicating with either articular bursal surface and no full-thickness tear. No rotator cuff muscle atrophy. There are extensive edematous soft tissue replacement within the rotator cuff interval and edematous thickening of the axillary recess. There is some linear signal extending into the substance of the superior labrum extending back to the posterior aspect of the superior labrum. No para labral cysts. Small glenohumeral joint effusion. The glenohumeral joint otherwise appears intact. No Hill-Sachs deformity or os acromiale. No suspicious bone marrow replacement. IMPRESSION: 1. Extensive edematous soft tissue replacement within the rotator cuff interval and edematous thicken ing of the axillary recess. These are findings which can be seen in the setting of adhesive capsuliti s. Clinically correlate. 2. Severe supraspinatus tendinosis. There may be a tiny 4 mm intrasubstance tear here. 3. Additional tiny 4 mm intrasubstance tear at the footprint of the subscapularis tendon. 4. No high-grade partial or full-thickness rotator cuff tear or muscle atrophy. 5. Mild long head biceps tenosynovitis and mild AC joint osteoarthrosis. 6. Small tear of the superior labrum.
== END | disposition home or self-care (01) ==
LOC: RADMRIMAIN 20:07
PROVIDERS: ATTEND Internal Medicine
DX: S46.811A Strain of other muscles, fascia and tendons at shoulder and upper arm level, right arm, initial encounter (principal); S43.491A Other sprain of right shoulder joint, initial encounter; M19.011 Primary osteoarthritis, right shoulder

== ENCOUNTER 2019-05-02 09:31 | Inpatient (IN) | payer MEDICARE, OTHER ==
[2019-05-02 10:05] LABS: Glucose,Whole Blood 337 mg/dL (75-99)
[2019-05-02] MEDS ORDERED: SODIUM CHLORIDE 0.9% 1,000 ML IV STA (10:05)
--- NOTE | 2019-05-02 10:09 | ED ---
General Adult HPI - General Chief complaint: Neuro Symptoms/Deficit Stated complaint: Slurred speech, left hand weakness Time Seen by Provider: 05/02/19 09:43 Source: patient, family, RN notes reviewed Mode of arrival: wheelchair Limitations: no limitations - History of Present Illness Initial comments: Patient is a pleasant 64-year-old male presenting to the emergency department with with concerns of stroke. Onset of symptoms was 3 days ago. Patient has left arm weakness that is new. Patient does have previous stroke with speech problems. Speech problems seem somewhat worse. Patient is having difficulty holding spoons and similar items with his left hand. Patient is walking fairly normal. No significant confusion. - Related Data Home Medications Medication Instructions Recorded Confirmed Glimepiride [Amaryl] 2 mg PO HS 07/20/16 05/02/19 metFORMIN HCL [Glucophage] 500 mg PO BID 07/20/16 05/02/19 Aspirin [[place] Aspirin EC] 81 mg PO HS 05/02/19 05/02/19 Clopidogrel [Plavix] 75 mg PO DAILY 05/02/19 05/02/19 Magnesium Oxide [Walters] 500 mg PO BID 05/02/19 05/02/19 Previous Rx's Medication Instructions Recorded Atorvastatin [Lipitor] 80 mg PO HS #30 tab 07/27/16 Allergies Allergy/AdvReac Type Severity Reaction Status Date / Time No Known Allergies Allergy Verified 05/02/19 10:51 Review of Systems ROS Statement: Those systems with pertinent positive or pertinent negative responses have been documented in the HPI. ROS Other: All systems not noted in ROS Statement are negative. Constitutional: Denies: fever Eyes: Denies: eye pain ENT: Denies: ear pain Respiratory: Denies: cough Cardiovascular: Denies: chest pain Endocrine: Denies: fatigue Gastrointestinal: Denies: abdominal pain Genitourinary: Denies: dysuria Musculoskeletal: Denies: back pain Skin: Denies: rash Neurological: Reports: weakness Past Medical History Past Medical History: COPD, CVA/TIA, Diabetes Mellitus, Hyperlipidemia Additional Past Medical History / Comment(s): CVA 3-19 History of Any Multi-Drug Resistant Organisms: None Reported Past Surgical History: No Surgical Hx Reported Past Psychological History: No Psychological Hx Reported Smoking Status: Current every day smoker Past Alcohol Use History: Occasional Past Drug Use History: None Reported - Past Family History Mother Family Medical History: Diabetes Mellitus Additional Family Medical History / Comment(s): Father Family Medical History: CVA/TIA Additional Family Medical History / Comment(s): General Exam Limitations: no limitations General appearance: alert, in no apparent distress Head exam: Present: normocephalic Eye exam: Present: normal appearance, PERRL ENT exam: Present: normal oropharynx Neck exam: Present: normal inspection Respiratory exam: Present: normal lung sounds bilaterally Cardiovascular Exam: Present: regular rate, normal rhythm GI/Abdominal exam: Present: soft. Absent: tenderness Extremities exam: Present: normal inspection Neurological exam: Present: oriented X3, CN II-XII intact (Except for Minimal left-sided facial weakness) Expanded Neurological exam: Present: other (Mild slurred) Patient oriented to: Present: person, place, time Cranial nerves: EOM's Intact: Normal Sensory exam: Upper Extremity Light Touch: Normal, Lower Extremity Light Touch: Normal Motor strength exam: RUE: 4, LUE: 3, RLE: 5, LLE: 5 Eye Response: (4) open spontaneously Motor Response: (6) obeys commands Verbal Response: (5) oriented Psychiatric exam: Present: normal affect, normal mood Skin exam: Present: normal color Course Vital Signs 05/02/19 05/02/19 09:37 10:41 Temperature 97.8 F Pulse Rate 91 78 Respiratory 19 18 Rate Blood Pressure 118/72 113/70 O2 Sat by Pulse 98 95 Oximetry - Reevaluation(s) Reevaluation #1: 05/02/19 11:01 Patient is not a TPA candidate secondary to onset of symptoms greater than 4 and half hours EKG Findings - EKG Comments: EKG Findings:: Sinus rhythm at 80. [place] 126. QRS 108. QT 354. QTC 408. Normal axis. Incomplete right bundle-branch block. Nonspecific ST-T. Medical Decision Making - Medical Decision Making Patient reevaluated. Patient and family updated. Dr. carlisle has been paged for admission covering for Dr. Nelson - Lab Data Result diagrams: 05/02/19 10:00 05/02/19 10:00 Lab Results 05/02/19 05/02/19 05/02/19 Range/Units 10:00 10:00 10:00 WBC 7.7 (3.8-10.6) k/uL RBC 4.89 (4.30-5.90) m/uL Hgb 15.6 (13.0-17.5) gm/dL Hct 45.3 (39.0-53.0) % MCV 92.7 (80.0-100.0) fL MCH 31.8 (25.0-35.0) pg MCHC 34.3 (31.0-37.0) g/dL RDW 12.9 (11.5-15.5) % Plt Count 279 (150-450) k/uL Neutrophils % 67 % Lymphocytes % 20 % Monocytes % 6 % Eosinophils % 4 % Basophils % 1 % Neutrophils # 5.2 (1.3-7.7) k/uL Lymphocytes # 1.6 (1.0-4.8) k/uL Monocytes # 0.4 (0-1.0) k/uL Eosinophils # 0.3 (0-0.7) k/uL Basophils # 0.1 (0-0.2) k/uL PT 10.2 (9.0-12.0) sec INR 0.9 (<1.2) APTT 27.7 (22.0-30.0) sec Sodium 137 (137-145) mmol/L Potassium 5.9 H (3.5-5.1) mmol/L Chloride 102 (98-107) mmol/L Carbon Dioxide 28 (22-30) mmol/L Anion Gap 7 mmol/L BUN 22 H (9-20) mg/dL Creatinine 0.76 (0.66-1.25) mg/dL Est GFR (CKD-EPI)AfAm >90 (>60 ml/min/1.73 sqM) Est GFR (CKD-EPI)NonAf >90 (>60 ml/min/1.73 sqM) Glucose 338 H (74-99) mg/dL POC Glucose (mg/dL) (75-99) mg/dL POC Glu Math Professor ID Calcium 9.6 (8.4-10.2) mg/dL Total Bilirubin 0.7 (0.2-1.3) mg/dL AST 21 (17-59) U/L ALT 15 (4-49) U/L Alkaline Phosphatase 156 H (38-126) U/L Total Protein 7.3 (6.3-8.2) g/dL Albumin 4.2 (3.5-5.0) g/dL 05/02/19 Range/Units 10:03 WBC (3.8-10.6) k/uL RBC (4.30-5.90) m/uL Hgb (13.0-17.5) gm/dL Hct (39.0-53.0) % MCV (80.0-100.0) fL MCH (25.0-35.0) pg MCHC (31.0-37.0) g/dL RDW (11.5-15.5) % Plt Count (150-450) k/uL Neutrophils % % Lymphocytes % % Monocytes % % Eosinophils % % Basophils % % Neutrophils # (1.3-7.7) k/uL Lymphocytes # (1.0-4.8) k/uL Monocytes # (0-1.0) k/uL Eosinophils # (0-0.7) k/uL Basophils # (0-0.2) k/uL PT (9.0-12.0) sec INR (<1.2) APTT (22.0-30.0) sec Sodium (137-145) mmol/L Potassium (3.5-5.1) mmol/L Chloride (98-107) mmol/L Carbon Dioxide (22-30) mmol/L Anion Gap mmol/L BUN (9-20) mg/dL Creatinine (0.66-1.25) mg/dL Est GFR (CKD-EPI)AfAm (>60 ml/min/1.73 sqM) Est GFR (CKD-EPI)NonAf (>60 ml/min/1.73 sqM) Glucose (74-99) mg/dL POC Glucose (mg/dL) 337 H (75-99) mg/dL POC Glu Math Professor ID Geneva [place] Calcium (8.4-10.2) mg/dL Total Bilirubin (0.2-1.3) mg/dL AST (17-59) U/L ALT (4-49) U/L Alkaline Phosphatase (38-126) U/L Total Protein (6.3-8.2) g/dL Albumin (3.5-5.0) g/dL - Radiology Data Radiology results: report reviewed (Computed tomography scan of the brain shows cavernous segment right ICA that is hyperdense. Nonspecific area of low attenuation frontal white matter most likely remote ischemia. No acute hemorrhage. Generalized degenerative changes.), image reviewed (This x-ray shows no acute process) Disposition Clinical Impression: CVA (cerebral vascular accident) Disposition: ADMITTED IP TO THIS HOSP Is patient prescribed a controlled substance at d/c from ED?: No Referrals: Anthony Nelson MD [Primary Care Provider] - 1-2 days Decision Time: 11:01
[2019-05-02 10:24] LABS: Basophils # (A) 0.1 k/uL (0-0.2); Basophils % (A) 1 %; Eosinophils # (A) 0.3 k/uL (0-0.7); Eosinophils % (A) 4 %; HCT 45.3 % (39.0-53.0); HGB 15.6 gm/dL (13.0-17.5); Lymphocytes # (A) 1.6 k/uL (1.0-4.8); Lymphocytes % (A) 20 %; MCH 31.8 pg (25.0-35.0); MCHC 34.3 g/dL (31.0-37.0); MCV 92.7 fL (80.0-100.0); Mean Platelet Volume 8.3; Monocytes # (A) 0.4 k/uL (0-1.0); Monocytes % (A) 6 %; Neutrophils # (A) 5.2 k/uL (1.3-7.7); Neutrophils % (A) 67 %; Platelet Count 279 k/uL (150-450); RBC 4.89 m/uL (4.30-5.90); RDW 12.9 % (11.5-15.5); WBC 7.7 k/uL (3.8-10.6)
--- NOTE | 2019-05-02 10:31 | CT ---
EXAMINATION TYPE: CT brain wo con DATE OF EXAM: 05/02/2019 COMPARISON: 07/30/2016 HISTORY: Slurred speech, bilateral hand weakness CT DLP: 1099.4 mGycm Automated exposure control for dose reduction was used. FINDINGS: Kirstin moderate generalized degenerative change. There is no acute hemorrhage or mass effect. No midlin e shift. There are new areas of low attenuation involving the frontal lobes bilaterally. Nonspecific periventricular white matter changes most typical remote microvascular ischemia. Intracranial atheros clerotic changes noted. Cavernous segment of the right ICA is somewhat hyperdense recommend CTA. IMPRESSION: 1. Cavernous segment of the right ICA is somewhat hyperdense. Difficult to determine if this is artif actual or partial volume average recommend CTA or MRA to exclude pathology. 2. NONSPECIFIC AREAS OF LOW ATTENUATION INVOLVING THE FRONTAL WHITE MATTER MOST LIKELY IN THE BASIS O F REMOTE ISCHEMIA. IF THERE IS CONCERN FOR ACUTE ISCHEMIA CORRELATE WITH MRI CLINICALLY WARRANTED. 3. NO ACUTE HEMORRHAGE. 4. [id number] GENERALIZED DEGENERATIVE CHANGES WITH ADDITIONAL NONSPECIFIC WHITE MATTER CHANGES MOST TYPICAL REMOTE MICROVASCULAR ISCHEMIA.
--- NOTE | 2019-05-02 10:32 | XR ---
EXAMINATION TYPE: XR chest 2V DATE OF EXAM: 05/02/2019 COMPARISON: 08/11/2016 TECHNIQUE: PA and lateral views submitted. HISTORY: Headache FINDINGS: The lungs are clear and there is no pneumothorax, pleural effusion, or focal pneumonia. No overt fa ilure. Degenerative change of the spine. IMPRESSION: 1. No acute process.
[2019-05-02 10:33] LABS: Chloride 102 mmol/L (98-107); INR 0.9 (<1.2); Partial Thromboplastin Time 27.7 sec (22.0-30.0); Prothrombin Time 10.2 sec (9.0-12.0)
[2019-05-02 10:35] LABS: ALT 15 U/L (4-49); AST 21 U/L (17-59); African American GFR (CKD) >90 (>60 ml/min/1.73 sqM); Albumin 4.2 g/dL (3.5-5.0); Alkaline Phosphatase 156 U/L (38-126); Anion Gap 7 mmol/L; Blood Urea Nitrogen 22 mg/dL (9-20); Calcium 9.6 mg/dL (8.4-10.2); Carbon Dioxide 28 mmol/L (22-30); Glucose 338 mg/dL (74-99); Non-African American GFR(CKD) >90 (>60 ml/min/1.73 sqM); Sodium 137 mmol/L (137-145); Total Bilirubin 0.7 mg/dL (0.2-1.3); Total Protein 7.3 g/dL (6.3-8.2)
[2019-05-02 10:45] LABS: Potassium 5.9 mmol/L (3.5-5.1)
[2019-05-02] MEDS ORDERED: ASPIRIN 325 MG TAB PO STA (11:01)
[2019-05-02 11:48] LABS: Glucose,Whole Blood 290 mg/dL (75-99)
[2019-05-02] MEDS ORDERED: PNEUMOCOCCAL VACC-PNEUMOVAX 23 25 MCG/0.5 ML VIAL IM ONE (12:07)
[2019-05-02] MEDS ORDERED: INFLUENZA VACCINE (6 MOS+) 60 MCG/0.5 ML SYRINGE IM ONE (12:07)
[2019-05-02] MEDS: SODIUM CHLORIDE 0.9% 1,000 ML IV SCH ×2 (12:59→21:47)
[2019-05-02] MEDS: INSULIN ASPART (NovoLOG) 100 UNIT/ML VIAL SQ SCH ×3 (13:03→21:34)
[2019-05-02 13:06] LABS: Glucose,Whole Blood 254 mg/dL (75-99)
--- NOTE | 2019-05-02 13:07 | CT ---
EXAMINATION TYPE: CT angio head neck DATE OF EXAM: 05/02/2019 COMPARISON: Brain CT performed earlier today HISTORY: 64-year-old male abnormal brain ct. CVA. TECHNIQUE: Contiguous axial scanning of the head and neck performed with IV Contrast, patient injecte d with 65 mL of Isovue 370. Coronal/sagittal MIP reconstructions performed. 3-D reconstructions gener ated on a dedicated independent workstation. CT DLP: 489.7 mGycm Automated exposure control for dose reduction was used. FINDINGS: Neck: Conventional arch vessel branching anatomy with mild atherosclerotic narrowing at the origin of the b rachiocephalic and left common carotid arteries. The vertebral arteries are codominant and patent throughout the course. Right common carotid artery is patent. There is mild uniform narrowing of the right internal carotid artery without any significant focal stenosis. Remainder of the left common carotid artery is patent. Mild atherosclerotic change at the left bifurc ation with a focal 40% proximal ICA stenosis at the level of the carotid bulb. Head: The vertebral and basilar arteries are patent. There seems to be prominent collateral vessels around the M1 segments of the bilateral middle cerebra l arteries with more adequate visualization of the M2 and more distal MCA segments. Possible severe focal atherosclerotic narrowing at the origin of the A1 segment left anterior cerebra l artery. Diminutive caliber to the A1 segment right anterior cerebral artery. IMPRESSION: NECK: 1. MILD UNIFORM NARROWING OF THE ENTIRE RIGHT ICA. NO FOCAL HEMODYNAMICALLY SIGNIFICANT RIGHT ICA ARNAUD NOSIS. 2. FOCAL MILD, 40% PROXIMAL LEFT ICA STENOSIS. 3. MILD ATHEROSCLEROTIC NARROWING AT THE BRACHIOCEPHALIC ARTERY ORIGIN AND LEFT COMMON CAROTID ARTERY ORIGIN. HEAD: 1. SEVERE STENOSES AT THE CAROTID TERMINUS, RIGHT GREATER THAN LEFT. WISPY A1 SEGMENT RIGHT FADI OPACI FICATION. THERE MAY BE A SEVERE FOCAL STENOSIS AT THE PROXIMAL A1 SEGMENT LEFT FADI. 2. THE M1 SEGMENTS ARE POORLY DEFINED ON BOTH SIDES SUGGESTING SEVERE STENOSES. PROMINENT COLLATERAL VESSELS AROUND THE M1 SEGMENTS PROBABLY REFLECTING COLLATERALIZATION OF FLOW. THE M2 AND MORE DISTAL MCA SEGMENTS HAVE A MORE NORMAL APPEARANCE.
--- NOTE | 2019-05-02 13:25 | P.HPIM ---
History of Present Illness This is a pleasant 64 years old male with past medical history of CVA/TIA, COPD, diabetes mellitus, GERD, hyperlipidemia, difficulty swallowing, every day smoker. Patient has previous history of stroke and right upper extremity hem iparesis and slurred speech. However last night he had weakness and numbness in his left hand, to the point he has difficulty picking up objects which is something they could do prior to that. No problem in his left leg. No headache. No nausea vomiting. However his voice becoming more slowing and slurred. He denies chest pain or dyspnea. No abdominal pain. No change in urine or bowel habits. No fever. Vitals are stable. On admission patient sugar was elevated at 338 also potassium was on the high side at 5.9, other than that he has unremarkable CBC, BMP, INR and liver enzymes. This troponin is negative as less than 0.012. EKG showing sinus rhythm at 80 BPM with no significant ST-T changes, with QTC 408. Chest x-ray: No acute process. CT of the brain: No acute hemorrhage, mild to moderate generalized degenerative changes. New areas of low attenuation in both frontal lobes, covering the segments of the R-ICA is hyperdense, and the recommended CTA. CT of the head and neck: Mild stenosis of bilateral ICA however there is severe stenosis of the carotid terminus and right FADI and multiple spots In the emergency room patient got aspirin 325 mg and started on normal sinus 100 mL per hour Review of Systems CONSTITUTIONAL: No fever, no malaise, no fatigue. HEENT: No recent visual problems or hearing problems. Denied any sore throat. CARDIOVASCULAR: No orthopnea, PND, no palpitations, no syncope. PULMONARY: No shortness of breath, no cough, no hemoptysis. GASTROINTESTINAL: No diarrhea, no nausea, no vomiting, no abdominal pain. Nor moactive bowel sounds. NEUROLOGICAL: No headaches, no weakness, no numbness. HEMATOLOGICAL: Denies any bleeding or petechiae. GENITOURINARY: Denies any burning micturition, frequency, or urgency. MUSCULOSKELETAL/RHEUMATOLOGICAL: Denies any joint pain, swelling, or any muscle pain. ENDOCRINE: Denies any polyuria or polydipsia. Past Medical History Past Medical History: COPD, CVA/TIA, Diabetes Mellitus, GERD/Reflux, Hyperlipidemia Additional Past Medical History / Comment(s): 2017 CVA with speach changes/R arm and hand weakness, aspiration pneumonia, slight difficulty swallowing/coughs-no special diet and can swallow pills History of Any Multi-Drug Resistant Organisms: None Reported Past Surgical History: No Surgical Hx Reported Additional Past Surgical History / Comment(s): Colonoscopy Past Anesthesia/Blood Transfusion Reactions: No Reported Reaction Smoking Status: Current every day smoker - Past Family History Mother Family Medical History: Diabetes Mellitus Additional Family Medical History / Comment(s): Father Family Medical History: CVA/TIA Additional Family Medical History / Comment(s): from CVA at age 52yrs. Medications and Allergies Home Medications Medication Instructions Recorded Confirmed Type Glimepiride [Amaryl] 2 mg PO HS 07/20/16 05/02/19 History metFORMIN HCL [Glucophage] 500 mg PO BID 07/20/16 05/02/19 History Atorvastatin [Lipitor] 80 mg PO HS #30 tab 07/27/16 05/02/19 Rx Aspirin [[place] Aspirin EC] 81 mg PO HS 05/02/19 05/02/19 History Clopidogrel [Plavix] 75 mg PO DAILY 05/02/19 05/02/19 History Magnesium Oxide [Walters] 500 mg PO BID 05/02/19 05/02/19 History Allergies Allergy/AdvReac Type Severity Reaction Status Date / Time No Known Allergies Allergy Verified 05/02/19 10:51 Physical Exam Vitals: Vital Signs Temp Pulse Resp BP Pulse Ox 05/02/19 11:45 98.2 F 78 18 138/76 95 05/02/19 10:41 78 18 113/70 95 05/02/19 09:37 97.8 F 91 19 118/72 98 Intake and Output 05/01/19 05/02/19 05/02/19 22:59 06:59 14:59 Other: Weight 72.575 kg GENERAL: The patient is alert and oriented x3, not in any acute distress. Well developed, well nourished. HEENT: Pupils are round and equally reacting to light. EOMI. No scleral icterus. No conjunctival pallor. Normocephalic, atraumatic. No pharyngeal erythema. No thyromegaly. CARDIOVASCULAR: S1 and S2 present. No murmurs, rubs, or gallops. PULMONARY: Chest is clear to auscultation, no wheezing or crackles. ABDOMEN: Soft, nontender, nondistended, normoactive bowel sounds. No palpable organomegaly. MUSCULOSKELETAL: No joint swelling or deformity. EXTREMITIES: No cyanosis, clubbing, or pedal edema. NEUROLOGICAL: Gross neurological examination did not reveal any focal deficits. SKIN: No rashes. No petechiae Results CBC & Chem 7: 05/02/19 10:00 05/02/19 10:00 Labs: Abnormal Lab Results - Last 24 Hours (Table) 05/02/19 05/02/19 05/02/19 Range/Units 10:00 10:03 11:47 Potassium 5.9 H (3.5-5.1) mmol/L BUN 22 H (9-20) mg/dL Glucose 338 H (74-99) mg/dL POC Glucose (mg/dL) 337 H 290 H (75-99) mg/dL Alkaline Phosphatase 156 H (38-126) U/L Thrombosis Risk Factor Assmnt - Choose All That Apply Any of the Below Risk Factors Present?: Yes Other Risk Factors: Yes Each Risk Factor Represents 2 Points: Age 61-74 years Other congenital or acquired thrombophilia - If yes, enter type in comment: No Each Risk Factor Represents 5 Points: Stroke (< 1 month) Thrombosis Risk Factor Assessment Total Risk Factor Score: 7 Thrombosis Risk Factor Assessment Level: High Risk Assessment and Plan Assessment: Possible Acute stroke, with worsening slurred speech and weakness/numbness of the left hand Severe stenosis of the carotid terminus, and bilateral FADI Diabetes mellitus Hyperlipidemia Nicotine dependence GERD with history of difficulty swallowing History of CVA/TIA COPD, not in acute exacerbation Plan: This is a pleasant 64 years old male who presents with acute stroke. Continue with aspirin, continue with IV hydration. Neurology consult. Continue with the neuro check. We'll do speech and swallow evaluation. Consult vascular surgery Labs and medication were reviewed.. Continue same treatment. Continue with symptomatic treatment. Resume home medication. Monitor lytes and vitals. DVT and GI prophylaxis. Further recommendations of the clinical course of the patient DVT prophylaxis: Subcutaneous heparin GI Prophylaxis: Pepcid PT/OT: Pending Prognosis is guarded
--- NOTE | 2019-05-02 16:09 | P.CNNES ---
History of Present Illness Consult date: 05/02/19 Requesting physician: Willie Tomas Reason for Consult: CVA History of Present Illness: Patient is a 64-year-old male, with history of previous CVA in 2017 which affected right hand, who now came to the hospital because he was noticing slowing down of the speech, and weakness of the left hand for the last "couple days". Patient's sister was present, who states that patient was stubborn, did not want to come to the hospital. He was having difficulty picking up objects with his left hand. As his symptoms persisted, patient decided to come to the ER. Patient had computed tomography scan of the head, which revealed cavernous segment of the right ICA is somewhat hyperdense. Difficult to determine determine if this is artifactual or partial volume averaging. Recommend CTA or MRA of the head. Nonspecific areas of low attenuation involving the frontal white matter most likely in the basis of remote ischemia. If there is concern for acute ischemia correlate with MRI, as clinically warranted. No acute hemorrhage. Small vessel ischemic disease. Patient subsequently underwent CTA of head and neck. CTA of neck showed mild uniform narrowing of the entire right ICA. No focal hemodynamically significant right ICA stenosis. Focal mild 40% proximal left ICA stenosis. Mild atherosclerotic narrowing at the brachiocephalic artery origin and left common carotid artery origin. CTA of the head showed severe stenosis at the carotid terminus, right greater than left. [place] A1 segment right FADI opacification. They may be severe focal stenosis at the proximal A1 segment left FADI. The M1 segments are poorly defined on both sides suggesting severe stenosis. Prominent collateral vessels around the M1 segment probably reflecting collateralization of flow. The M2 and more distal MCA segments have a more normal appearance. Patient's blood test shows normal CBC, Chem-7, last hemoglobin A1c 7.2 on 2018. Liver panel is normal. Patient's lipids showed cholesterol 79, LDL 36, HDL 28 and triglyceride 72. Patient's EKG showed sinus rhythm with fusion complexes. Incomplete right bundle-branch block. Patient has history of stroke in 2017 which affected the right hand. Patient apparently underwent DUGLAS on 07/27/2016, which revealed no intracardiac thrombus within the left atrium, right atrium. No evidence of [id number] shunt by agitated saline contrast study or [id number] shunt by color flow Doppler. Patient has history of diabetes for the last 10 years. Denies hypertension or hyperlipidemia. Patient has smoked 2 packs per day since age 16. Denies any alcohol or drugs. Patient further states that he missed 2 days of taking aspirin and Plavix on Monday and Monday, couple days prior to onset of these neurological symptoms. He otherwise typically does not miss his medications. Review of Systems Denies chest pain, shortness of breath. Denies diplopia, does have some dysarthria. Also complains of weakness. Denies any the headache, double vision and nausea vomiting diarrhea. No abdominal pain. Past Medical History Past Medical History: COPD, CVA/TIA, Diabetes Mellitus, GERD/Reflux, Hyperlipidemia Additional Past Medical History / Comment(s): 2017 CVA with speach changes/R arm and hand weakness, aspiration pneumonia, slight difficulty swallowing/coughs-no special diet and can swallow pills History of Any Multi-Drug Resistant Organisms: None Reported Past Surgical History: No Surgical Hx Reported Additional Past Surgical History / Comment(s): Colonoscopy Past Anesthesia/Blood Transfusion Reactions: No Reported Reaction Smoking Status: Current every day smoker - Past Family History Mother Family Medical History: Diabetes Mellitus Additional Family Medical History / Comment(s): Father Family Medical History: CVA/TIA Additional Family Medical History / Comment(s): from CVA at age 52yrs. Medications and Allergies Home Medications Medication Instructions Recorded Confirmed Type Glimepiride [Amaryl] 2 mg PO HS 07/20/16 05/02/19 History metFORMIN HCL [Glucophage] 500 mg PO BID 07/20/16 05/02/19 History Atorvastatin [Lipitor] 80 mg PO HS #30 tab 07/27/16 05/02/19 Rx Aspirin [[place] Aspirin EC] 81 mg PO HS 05/02/19 05/02/19 History Clopidogrel [Plavix] 75 mg PO DAILY 05/02/19 05/02/19 History Magnesium Oxide [Walters] 500 mg PO BID 05/02/19 05/02/19 History Allergies Allergy/AdvReac Type Severity Reaction Status Date / Time No Known Allergies Allergy Verified 05/02/19 10:51 Physical Examination - Vital Signs Vital Signs: Vital Signs Temp Pulse Resp BP Pulse Ox 05/02/19 11:45 98.2 F 78 18 138/76 95 05/02/19 10:41 78 18 113/70 95 05/02/19 09:37 97.8 F 91 19 118/72 98 Intake and Output 05/02/19 05/02/19 05/02/19 06:59 14:59 22:59 Other: Weight 72.575 kg On examination patient is a late middle aged male, in no acute distress. He is alert and awake. Patient has right carotid bruit. S1 and S2 audible. Peripheral pulses present. Speech is mildly dysarthric and slow, but no aphasia. Attention and concentration fund of knowledge is adequate. On cranial nerve exertion pupils are round and reacting to light, visual chaparro are full on confrontation, extraocular muscles are intact. Patient has left facial weakness, central type. Tongue protrudes slightly to the right. On muscle strength testing, patient has bilateral pronator drift, right side slightly worse. Otherwise the strength appears normal in the arms and legs distally and proximally. Patient has very minimal ataxia for [id number] bilaterally. His fine motor is definitely slow on the left as compared to right. Patient reflexes are brisk and has possible bilateral Babinski. Sensory touch is equal with no neglect on double simultaneous stimulation. Gait deferred. Patient does have right carotid bruit. S1 and S2 audible. No peripheral edema. Results - Laboratory Findings CBC and BMP: 05/03/19 05:38 05/03/19 05:38 Abnormal Lab Findings: Abnormal Labs 05/02/19 05/02/19 05/02/19 10:00 10:03 11:47 Potassium 5.9 H BUN 22 H Glucose 338 H POC Glucose (mg/dL) 337 H 290 H Alkaline Phosphatase 156 H 05/02/19 12:54 Potassium BUN Glucose POC Glucose (mg/dL) 254 H Alkaline Phosphatase Assessment and Plan Assessment: * 64-year-old male admitted with acute to subacute onset of slurred speech and left-sided weakness mainly involving the left facial brachial region. Patient has history of previous CVA with mild residual right upper extremity weakness with spasticity. Patient does have significant vasculopathy noted on the CTA of head and neck. Patient has missed 2 days of antiplatelet medications, a few days prior to his onset of stroke symptoms. * Vascular risk factors include hypertension, diabetes and chronic heavy tobacco use. Plan: * Resume aspirin and Plavix 75 mg. * Patient had a DUGLAS performed previously on 07/27/2016 which was normal. No need to repeat it. * We will check MRI of the brain to localize a CVA. We will also check MRA of the brain. * Consider a vascular surgical consultation for right ICA stenosis. Patient may be a candidate for ICA stenting, as the carotid stenosis is probably intracranially involving the ICA terminus. * PT OT and speech therapy. Dysphagia screening. * Permissible hypertension for 24-48 hours.
[2019-05-02] MEDS: CLOPIDOGREL 75 MG TAB PO SCH (17:13)
[2019-05-02 17:22] LABS: Glucose,Whole Blood 131 mg/dL (75-99)
[2019-05-02 21:20] LABS: Glucose,Whole Blood 165 mg/dL (75-99)
[2019-05-02] MEDS: MAGNESIUM OXIDE 400 MG TAB PO SCH (21:40)
[2019-05-02] MEDS: GLIMEPIRIDE 2 MG TAB PO SCH (21:40)
[2019-05-02] MEDS: ATORVASTATIN 80 MG TAB PO SCH (21:40)
[2019-05-02] MEDS: FAMOTIDINE 20 MG/2 ML VIAL IV SCH (21:41)
[2019-05-02] MEDS: HEPARIN SODIUM,PORCINE 5,000 UNIT/ML 1 ML VIAL SQ SCH (21:46)
[2019-05-03 05:59] LABS: Basophils # (A) 0.1 k/uL (0-0.2); Basophils % (A) 1 %; Eosinophils # (A) 0.3 k/uL (0-0.7); Eosinophils % (A) 3 %; HCT 42.9 % (39.0-53.0); HGB 14.3 gm/dL (13.0-17.5); Lymphocytes # (A) 1.6 k/uL (1.0-4.8); Lymphocytes % (A) 15 %; MCH 30.9 pg (25.0-35.0); MCHC 33.3 g/dL (31.0-37.0); MCV 92.9 fL (80.0-100.0); Monocytes # (A) 0.7 k/uL (0-1.0); Monocytes % (A) 6 %; Neutrophils % (A) 75 %; Platelet Count 250 k/uL (150-450); RBC 4.62 m/uL (4.30-5.90); RDW 13.1 % (11.5-15.5); WBC 10.8 k/uL (3.8-10.6)
[2019-05-03 06:19] LABS: African American GFR (CKD) >90 (>60 ml/min/1.73 sqM); Anion Gap 7 mmol/L; Blood Urea Nitrogen 17 mg/dL (9-20); Calcium 8.8 mg/dL (8.4-10.2); Carbon Dioxide 25 mmol/L (22-30); Chloride 106 mmol/L (98-107); Cholesterol 123 mg/dL (<200); Glucose 140 mg/dL (74-99); HDL Cholesterol 29 mg/dL (40-60); LDL Cholesterol,Calculated 51 mg/dL (0-99); Non-African American GFR(CKD) >90 (>60 ml/min/1.73 sqM); Potassium 4.5 mmol/L (3.5-5.1); Sodium 138 mmol/L (137-145); Triglycerides 216 mg/dL (<150)
[2019-05-03] MEDS: INSULIN ASPART (NovoLOG) 100 UNIT/ML VIAL SQ SCH ×4 (07:04→20:14)
[2019-05-03] MEDS: SODIUM CHLORIDE 0.9% 1,000 ML IV SCH ×2 (07:04→17:21)
[2019-05-03 07:11] LABS: Glucose,Whole Blood 203 mg/dL (75-99)
[2019-05-03] MEDS: CLOPIDOGREL 75 MG TAB PO SCH (08:20)
[2019-05-03] MEDS: HEPARIN SODIUM,PORCINE 5,000 UNIT/ML 1 ML VIAL SQ SCH ×2 (08:20→20:05)
[2019-05-03] MEDS: FAMOTIDINE 20 MG/2 ML VIAL IV SCH (08:20)
[2019-05-03] MEDS: MAGNESIUM OXIDE 400 MG TAB PO SCH ×2 (08:21→20:05)
[2019-05-03] MEDS ORDERED: ASPIRIN 325 MG TAB PO SCH (09:00)
--- NOTE | 2019-05-03 10:19 | P.PN ---
Subjective This is a pleasant 64 years old male with past medical history of CVA/TIA, COPD, diabetes mellitus, GERD, hyperlipidemia, difficulty swallowing, every day smoker. Patient has previous history of stroke and right upper extremity hemiparesis and slurred speech. However last night he had weakness and numbness in his left hand, to the point he has difficulty picking up objects which is something they could do prior to that. No problem in his left leg. No headache. No nausea vomiting. However his voice becoming more slowing and slurred. He denies chest pain or dyspnea. No abdominal pain. No change in urine or bowel habits. No fever. Vitals are stable. On admission patient sugar was elevated at 338 also potassium was on the high side at 5.9, other than that he has unremarkable CBC, BMP, INR and liver enzymes. This troponin is negative as less than 0.012. EKG showing sinus rhythm at 80 BPM with no significant ST-T changes, with QTC 408. Chest x-ray: No acute process. CT of the brain: No acute hemorrhage, mild to moderate generalized degenerative changes. New areas of low attenuation in both frontal lobes, covering the segments of the R-ICA is hyperdense, and the recommended CTA. CT of the head and neck: Mild stenosis of bilateral ICA however there is severe stenosis of the carotid terminus and right FADI and multiple spots In the emergency room patient got aspirin 325 mg and started on normal sinus 100 mL per hour 05/03/2019 Patient today thinks his left hand weakness and slurred speech are little better. No other new complaints or weakness. Vitals stable. Left showing mild leukocytosis of 10.8, rest of labs are unremarkable, Showing mild leukocytosis of 10.8 K, Neurologist input is appreciated, recommended MRI and MRA of the brain. There was several carotid stenosis is spots and vascular surgery was consulted as well. Physical therapy and occupational therapy also R pending. Lower normal saline 75 mL/h. Continue with aspirin 325 mg daily Review of systems CONSTITUTIONAL: No fever, no malaise, no fatigue. HEENT: No recent visual problems or hearing problems. Denied any sore throat. CARDIOVASCULAR: No orthopnea, PND, no palpitations, no syncope. PULMONARY: No shortness of breath, no cough, no hemoptysis. GASTROINTESTINAL: No diarrhea, no nausea, no vomiting, no abdominal pain. No rmoactive bowel sounds. NEUROLOGICAL: No headaches, no weakness, no numbness. HEMATOLOGICAL: Denies any bleeding or petechiae. GENITOURINARY: Denies any burning micturition, frequency, or urgency. MUSCULOSKELETAL/RHEUMATOLOGICAL: Denies any joint pain, swelling, or any muscle pain. ENDOCRINE: Denies any polyuria or polydipsia. Objective - Vital Signs Vital signs: Vital Signs Temp 98.6 F 05/03/19 08:00 Pulse 82 05/03/19 08:00 Resp 16 05/03/19 08:00 BP 110/57 05/03/19 08:00 Pulse Ox 91 L 05/03/19 08:00 Intake & Output 05/02/19 05/03/19 05/03/19 18:59 06:59 18:59 Intake Total 600 340 Output Total 350 200 Balance 600 -350 140 Weight 72.575 kg Intake: IV 600 100 Sodium Chloride 0.9% 1, 600 100 000 ml @ 100 mls/hr IV . Q10H MICHEAL Rx#:[id number] Oral 240 Output: Urine 350 200 Other: # Voids 1 1 - Labs CBC & Chem 7: 05/03/19 05:38 05/03/19 05:38 Labs: Abnormal Lab Results - Last 24 Hours (Table) 05/02/19 05/02/19 05/02/19 Range/Units 10:00 11:47 12:54 WBC (3.8-10.6) k/uL Neutrophils # (1.3-7.7) k/uL Potassium 5.9 H (3.5-5.1) mmol/L BUN 22 H (9-20) mg/dL Glucose 338 H (74-99) mg/dL POC Glucose (mg/dL) 290 H 254 H (75-99) mg/dL Alkaline Phosphatase 156 H (38-126) U/L Triglycerides (<150) mg/dL HDL Cholesterol (40-60) mg/dL 05/02/19 05/02/19 05/03/19 Range/Units 17:11 21:09 05:38 WBC (3.8-10.6) k/uL Neutrophils # (1.3-7.7) k/uL Potassium (3.5-5.1) mmol/L BUN (9-20) mg/dL Glucose 140 H (74-99) mg/dL POC Glucose (mg/dL) 131 H 165 H (75-99) mg/dL Alkaline Phosphatase (38-126) U/L Triglycerides 216 H (<150) mg/dL HDL Cholesterol 29 L (40-60) mg/dL 05/03/19 05/03/19 Range/Units 05:38 06:58 WBC 10.8 H (3.8-10.6) k/uL Neutrophils # 8.0 H (1.3-7.7) k/uL Potassium (3.5-5.1) mmol/L BUN (9-20) mg/dL Glucose (74-99) mg/dL POC Glucose (mg/dL) 203 H (75-99) mg/dL Alkaline Phosphatase (38-126) U/L Triglycerides (<150) mg/dL HDL Cholesterol (40-60) mg/dL
[2019-05-03] MEDS ORDERED: TICAGRELOR 90 MG TAB PO SCH (11:15)
--- NOTE | 2019-05-03 11:32 | P.PN ---
Subjective Progress Note Date: 05/03/19 Patient's significant other was present today. Patient states that he may be slightly better. However on my review, he appears slightly worse. His speech is more dysarthric, although he states that he does not have dentition therefore has some slurring. She agrees that patient has been having stroke symptoms for 3 days prior to arrival. Patient has not had MRI performed yet. Patient after his last stroke in 2017 had some residual dysarthria and dysphagia. He was admitted for aspiration pneumonia, a few weeks after his stroke. He has some residual dysphagia from his previous stroke, particularly for eating like cereals, when he would choke. Objective - Vital Signs Vital signs: Vital Signs Temp 98.6 F 05/03/19 08:00 Pulse 82 05/03/19 08:00 Resp 16 05/03/19 08:00 BP 110/57 05/03/19 08:00 Pulse Ox 91 L 05/03/19 08:00 Intake & Output 05/02/19 05/03/19 05/03/19 18:59 06:59 18:59 Intake Total 600 340 Output Total 350 200 Balance 600 -350 140 Weight 72.575 kg Intake: IV 600 100 Sodium Chloride 0.9% 1, 600 100 000 ml @ 100 mls/hr IV . Q10H MICHEAL Rx#:[id number] Oral 240 Output: Urine 350 200 Other: # Voids 1 1 - Exam * On examination patient is a late middle aged male, in no distress. He is alert and awake. He has slightly slow mentation. Patient's speech is at least moderately dysarthric, slightly worse than yesterday. No aphasia. On cranial nerve examination pupils are round and reacting, visual chaparro are full, face has left-sided asymmetry. Tongue protrudes the midline. On muscle strength testing patient has bilateral pronator drift, right side worse. Patient strength is normal in the deltoid biceps triceps bilaterally. [employer] is 4+ bilaterally. Strength is normal in both lower limbs. Patient has mild ataxia for [id number] bilaterally. No ataxia for [id number]-[id number]. Reflexes are brisk and plantars are upgoing bilaterally. Sensations are equal with no neglect. Patient has right carotid bruit. - Labs CBC & Chem 7: 05/03/19 05:38 05/03/19 05:38 Labs: Abnormal Lab Results - Last 24 Hours (Table) 05/02/19 05/02/19 05/02/19 Range/Units 11:47 12:54 17:11 WBC (3.8-10.6) k/uL Neutrophils # (1.3-7.7) k/uL Glucose (74-99) mg/dL POC Glucose (mg/dL) 290 H 254 H 131 H (75-99) mg/dL Triglycerides (<150) mg/dL HDL Cholesterol (40-60) mg/dL 05/02/19 05/03/19 05/03/19 Range/Units 21:09 05:38 05:38 WBC 10.8 H (3.8-10.6) k/uL Neutrophils # 8.0 H (1.3-7.7) k/uL Glucose 140 H (74-99) mg/dL POC Glucose (mg/dL) 165 H (75-99) mg/dL Triglycerides 216 H (<150) mg/dL HDL Cholesterol 29 L (40-60) mg/dL 05/03/19 Range/Units 06:58 WBC (3.8-10.6) k/uL Neutrophils # (1.3-7.7) k/uL Glucose (74-99) mg/dL POC Glucose (mg/dL) 203 H (75-99) mg/dL Triglycerides (<150) mg/dL HDL Cholesterol (40-60) mg/dL Assessment and Plan Assessment: * 64-year-old male admitted with acute to subacute onset of slurred speech and left-sided weakness mainly involving the left facial brachial region. Patient has history of previous CVA in 2017 with some residual right arm and hand weakness with spasticity. Patient does have significant vasculopathy noted on the CTA of head and neck. Patient has missed 2 days of antiplatelet medications, a few days prior to his onset of stroke symptoms. * Vascular risk factors include hypertension, diabetes and chronic heavy tobacco use. Plan: * Patient's symptoms appears to be slightly worse. We will switch from Plavix to Brilinta 90 mg twice a day. Patient will be continued on aspirin. * Patient had a DUGLAS performed previously on 07/27/2016 which was normal. No need to repeat it. * Await MRI of the brain to localize a CVA. We will also check MRA of the head and neck. It showed multifocal small areas of acute lacunar infarction throughout the right frontal and parietal lobes particularly subcortical levels. Likely embolic from carotid disease. Background mild to moderate diffuse cerebral atrophy most prominent superiorly involving frontal and parietal lobes and moderate chronic small vessel ischemic changes with old left posterior frontal lobe infarct already demonstrated. * Vascular surgical consultation noted. No indication for vascular surgical intervention. Recommended possible neurovascular intervention. Please discuss with neuro intervention/stroke neurologist institutional research director, if patient would need a formal cerebral angiogram and perhaps right ICA stenting. * PT OT and speech therapy. Dysphagia screening. * Permissible hypertension for 24-48 hours. * Neurology coverage not available on the weekend.
[2019-05-03 12:22] LABS: Glucose,Whole Blood 205 mg/dL (75-99)
--- NOTE | 2019-05-03 13:20 | P.GSCN ---
History of Present Illness Consult date: 05/03/19 Reason for Consult: Carotid stenosis History of present illness: The patient is a pleasant 64-year-old white male with a past medical history of a CVA/TIA, COPD, diabetes mellitus, GERD, hyperlipidemia and daily smoker area. Patient has a previous history of a stroke which affected the right upper extremity, and had residual slurred speech. He came into the emergency room with complaints of weakness and numbness in the left hand with difficulty picking up any objects, and worsening of slurred speech. Consult was placed based on CT angiogram of the neck showing mild atherosclerotic narrowing at the origin of the brachiocephalic and left common carotid arteries, with patency of the right common carotid artery, with mild uniform narrowing of the right internal carotid artery without significant stenosis. The left common carotid a rtery is patent with mild arthrosclerotic change at the left bifurcation with a focal 40% proximal ICA stenosis at the level of the carotid bulb. The patient has continued left hemiparesis and slurred speech. Patient states improved from yesterday. Past Medical History Past Medical History: COPD, CVA/TIA, Diabetes Mellitus, GERD/Reflux, Hyperlipidemia Additional Past Medical History / Comment(s): 2017 CVA with speach changes/R arm and hand weakness, aspiration pneumonia, slight difficulty swallowing/coughs-no special diet and can swallow pills History of Any Multi-Drug Resistant Organisms: None Reported Past Surgical History: No Surgical Hx Reported Additional Past Surgical History / Comment(s): Colonoscopy Past Anesthesia/Blood Transfusion Reactions: No Reported Reaction Smoking Status: Current every day smoker - Past Family History Mother Family Medical History: Diabetes Mellitus Additional Family Medical History / Comment(s): Father Family Medical History: CVA/TIA Additional Family Medical History / Comment(s): from CVA at age 52yrs. Medications and Allergies Home Medications Medication Instructions Recorded Confirmed Type Glimepiride [Amaryl] 2 mg PO HS 07/20/16 05/02/19 History metFORMIN HCL [Glucophage] 500 mg PO BID 07/20/16 05/02/19 History Atorvastatin [Lipitor] 80 mg PO HS #30 tab 07/27/16 05/02/19 Rx Aspirin [[place] Aspirin EC] 81 mg PO HS 05/02/19 05/02/19 History Clopidogrel [Plavix] 75 mg PO DAILY 05/02/19 05/02/19 History Magnesium Oxide [Walters] 500 mg PO BID 05/02/19 05/02/19 History Allergies Allergy/AdvReac Type Severity Reaction Status Date / Time No Known Allergies Allergy Verified 05/02/19 10:51 Surgical - Exam Vital Signs Temp Pulse Resp BP Pulse Ox 97.8 F 91 19 118/72 98 05/02/19 09:37 05/02/19 09:37 05/02/19 09:37 05/02/19 09:37 05/02/19 09:37 General appearance: The patient is alert, oriented, in no acute distress. Sitting up in chair. HET: Head is normocephalic and atraumatic. Pupils are equal and reactive. Neck: Supple without lymphadenopathy. Trachea midline. No added bruit, bilaterally. Heart: S1 S2. Regular rate and rhythm. Lungs: No crackles or wheezes are heard. Abdomen: Soft, nontender, nondistended with bowel sounds. No peritoneal signs. No palpable organomegaly or masses. Extremities: Normal skin color and turgor. No cyanosis, rash, ulceration, clubbing, or edema. Radial and pedal pulses are 2/4 bilaterally. Neurological: Patient has mild slurring of speech, weakness in the left upper extremity. Results - Labs 05/03/19 05:38 05/03/19 05:38 Abnormal Lab Results - Last 24 Hours (Table) 05/02/19 05/02/19 05/02/19 Range/Units 10:00 10:03 11:47 WBC (3.8-10.6) k/uL Neutrophils # (1.3-7.7) k/uL Potassium 5.9 H (3.5-5.1) mmol/L BUN 22 H (9-20) mg/dL Glucose 338 H (74-99) mg/dL POC Glucose (mg/dL) 337 H 290 H (75-99) mg/dL Alkaline Phosphatase 156 H (38-126) U/L Triglycerides (<150) mg/dL HDL Cholesterol (40-60) mg/dL 05/02/19 05/02/19 05/02/19 Range/Units 12:54 17:11 21:09 WBC (3.8-10.6) k/uL Neutrophils # (1.3-7.7) k/uL Potassium (3.5-5.1) mmol/L BUN (9-20) mg/dL Glucose (74-99) mg/dL POC Glucose (mg/dL) 254 H 131 H 165 H (75-99) mg/dL Alkaline Phosphatase (38-126) U/L Triglycerides (<150) mg/dL HDL Cholesterol (40-60) mg/dL 05/03/19 05/03/19 05/03/19 Range/Units 05:38 05:38 06:58 WBC 10.8 H (3.8-10.6) k/uL Neutrophils # 8.0 H (1.3-7.7) k/uL Potassium (3.5-5.1) mmol/L BUN (9-20) mg/dL Glucose 140 H (74-99) mg/dL POC Glucose (mg/dL) 203 H (75-99) mg/dL Alkaline Phosphatase (38-126) U/L Triglycerides 216 H (<150) mg/dL HDL Cholesterol 29 L (40-60) mg/dL Diabetes panel 05/02/19 05/03/19 Range/Units 10:00 05:38 Sodium 137 138 (137-145) mmol/L Potassium 5.9 H 4.5 (3.5-5.1) mmol/L Chloride 102 106 (98-107) mmol/L Carbon Dioxide 28 25 (22-30) mmol/L BUN 22 H 17 (9-20) mg/dL Creatinine 0.76 0.72 (0.66-1.25) mg/dL Glucose 338 H 140 H (74-99) mg/dL Calcium 9.6 8.8 (8.4-10.2) mg/dL AST 21 (17-59) U/L ALT 15 (4-49) U/L Alkaline Phosphatase 156 H (38-126) U/L Total Protein 7.3 (6.3-8.2) g/dL Albumin 4.2 (3.5-5.0) g/dL Triglycerides 216 H (<150) mg/dL HDL Cholesterol 29 L (40-60) mg/dL Calcium panel 05/02/19 05/03/19 Range/Units 10:00 05:38 Calcium 9.6 8.8 (8.4-10.2) mg/dL Albumin 4.2 (3.5-5.0) g/dL Pituitary panel 05/02/19 05/03/19 Range/Units 10:00 05:38 Sodium 137 138 (137-145) mmol/L Potassium 5.9 H 4.5 (3.5-5.1) mmol/L Chloride 102 106 (98-107) mmol/L Carbon Dioxide 28 25 (22-30) mmol/L BUN 22 H 17 (9-20) mg/dL Creatinine 0.76 0.72 (0.66-1.25) mg/dL Glucose 338 H 140 H (74-99) mg/dL Calcium 9.6 8.8 (8.4-10.2) mg/dL Adrenal panel 05/02/19 05/03/19 Range/Units 10:00 05:38 Sodium 137 138 (137-145) mmol/L Potassium 5.9 H 4.5 (3.5-5.1) mmol/L Chloride 102 106 (98-107) mmol/L Carbon Dioxide 28 25 (22-30) mmol/L BUN 22 H 17 (9-20) mg/dL Creatinine 0.76 0.72 (0.66-1.25) mg/dL Glucose 338 H 140 H (74-99) mg/dL Calcium 9.6 8.8 (8.4-10.2) mg/dL Total Bilirubin 0.7 (0.2-1.3) mg/dL AST 21 (17-59) U/L ALT 15 (4-49) U/L Alkaline Phosphatase 156 H (38-126) U/L Total Protein 7.3 (6.3-8.2) g/dL Albumin 4.2 (3.5-5.0) g/dL Assessment and Plan Assessment: Carotid stenosis Slurred speech and weakness numbness of the left hand, possible acute stroke Diabetes mellitus hyperlipidemia Hypertension Contained dependent Plan: Myself and Dr. Peres evaluated the patient and reviewed the CT angiogram head and neck. At this time there is no recommendation for any vascular surgical intervention, continue management with medication. Continue with physical therapy, speech therapy, and occupationa therapy. May consider neuro-surgical interventions. Thank you for this consultation and allowing us to participate in the care of the patient during his hospital stay. The above dictated assessment and findings were discussed with her Ja. The impression and plan of care have been directed as dictated.
--- NOTE | 2019-05-03 14:16 | MR ---
"EXAMINATION TYPE: MR brain wo con DATE OF EXAM: 05/03/2019 COMPARISON: MRI brain July 25, 2016. CT brain from yesterday. HISTORY: CVA, ?right ICA stenosis/MCA stenosis. Weakness to both hands on admission, acute onset neur o deficits yesterday. TECHNIQUE: Multiplanar, multisequence imaging of the brain and brainstem is performed without IV cont rast. FINDINGS: Diffusion weighted images demonstrate areas of increased signal on diffusion-weighted images versus d iminished signal on ADC mapping involving the right frontal and parietal subcortical levels with hope tional involvement of the parietal areas axial image 160 series 305 that show T2 hyperintensity consi stent with evolving multifocal acute infarcts. There is no worrisome extra-axial fluid collection. Bilateral diffuse ventricular and sulcal prominen ce along with areas of T2 hyperintensity throughout the deep and periventricular white matter bilater ally with variable encephalomalacia high left frontal posterior parietal region redemonstrated. Midline structures demonstrate normal morphology. The craniocervical junction appears within normal limits. Normal vascular flow voids are present. Moderate mucosal thickening involving ethmoid sinuses bilaterally is redemonstrated. Mild mucosal thickening bilateral maxillary sinuses is improved from prior MRI. Globes are intact bilaterally. IMPRESSION: 1. Multifocal areas of acute lacunar infarction throughout the right frontal and parietal lobes parti cularly subcortical levels. 2. Background mild to moderate diffuse cerebral atrophy most prominent superiorly involving frontal a nd parietal lobes and moderate chronic small vessel ischemic changes with old left posterior frontal lobe infarct all redemonstrated. A Yellow level critical message alert has been initiated for Taras Hauser MD via the [employer] 36 0 | Critical Results System on 05/03/2019 2:12 PM. This message alert has been sent to Taras Hauser MD via the preferences provided by the clinician for the receipt of Radiology Critical Findings. [facility] [place] [facility] [id number]."
[2019-05-03 17:00] VITALS: RESP 16
[2019-05-03 17:15] LABS: Glucose,Whole Blood 253 mg/dL (75-99)
--- NOTE | 2019-05-03 19:43 | ECHOF ---
Referral Reason:Thrombus MEASUREMENTS -------- HEIGHT: 182.9 cm WEIGHT: 72.6 kg BP: 138/76 RVIDd: 3.4 cm (< 3.3) IVSd: 1.0 cm (0.6 - 1.1) LVIDd: 4.2 cm (3.9 - 5.3) LVPWd: 1.2 cm (0.6 - 1.1) IVSs: 1.4 cm LVIDs: 3.4 cm LVPWs: 1.7 cm LAESV Index (A-L): 18.68 ml/m Ao Diam: 3.4 cm (2.0 - 3.7) AV Cusp: 2.4 cm (1.5 - 2.6) MV EXCURSION: 22.775 mm (> 18.000) MV EF SLOPE: 131 mm/s (70 - 150) EPSS: 0.8 cm MV E Héctor: 0.62 m/s MV DecT: 254 ms MV A Héctor: 0.72 m/s MV E/A Ratio: 0.86 RAP: 5.00 mmHg RVSP: 19.46 mmHg FINDINGS -------- Undetermined rhythm. This was a technically adequate study. The left ventricular size is normal. There is mild concentric left ventricular hypertrophy. Overa ll left ventricular systolic function is mild-moderately impaired with, an EF between 40 - 45 %. The right ventricle is mildly enlarged. Normal LA size by volume 22+/-6 ml/m2. The right atrium is mildly enlarged. Interatrial and interventricular septum intact. The aortic valve is trileaflet, and appears structurally normal. No aortic stenosis or regurgitation. The mitral valve is normal. No mitral regurgitation. Mild tricuspid regurgitation present. There is no evidence of pulmonary hypertension. The right v entricular systolic pressure, as measured by Doppler, is 19.46mmHg. There is no pulmonic regurgitation present. The aortic root size is normal. IVC Not well visulized. There is no pericardial effusion. CONCLUSIONS -------- 1. Undetermined rhythm. 2. This was a technically adequate study. 3. The left ventricular size is normal. 4. There is mild concentric left ventricular hypertrophy. 5. Overall left ventricular systolic function is mild-moderately impaired with, an EF between 40 - 45 %. 6. The right ventricle is mildly enlarged. 7. Normal LA size by volume 22+/-6 ml/m2. 8. The right atrium is mildly enlarged. 9. The aortic valve is trileaflet, and appears structurally normal. No aortic stenosis or regurgitati on. 10. No mitral regurgitation. 11. Mild tricuspid regurgitation present. 12. There is no evidence of pulmonary hypertension. 13. There is no pulmonic regurgitation present. 14. IVC Not well visulized. 15. There is no pericardial effusion. PIPELINE EXECUTIVE: Viktoriya Galvan RDCS
[2019-05-03 19:59] VITALS: BP 122/58; PULSE 84; TEMP 98.6
[2019-05-03] MEDS: GLIMEPIRIDE 2 MG TAB PO SCH (20:05)
[2019-05-03] MEDS: ATORVASTATIN 80 MG TAB PO SCH (20:05)
[2019-05-03 20:07] LABS: Glucose,Whole Blood 225 mg/dL (75-99)
[2019-05-03] MEDS ORDERED: FAMOTIDINE 20 MG TAB PO SCH (21:00)
[2019-05-04] MEDS ORDERED: ASPIRIN 81 MG PO SCH (09:00)
[2019-05-04] MEDS ORDERED: CLOPIDOGREL 75 MG TAB PO SCH (09:00)
== END 2019-05-03 20:30 | disposition short-term general hospital (02) | DRG 65 ==
LOC: EC 09:31 → 3SCARD 11:02 → 2SICU 11:38
PROVIDERS: ADMIT Internal Medicine; ATTEND Internal Medicine
DX: I63.9 Cerebral infarction, unspecified (principal); I69.354 Hemiplegia and hemiparesis following cerebral infarction affecting left non-dominant side; I65.23 Occlusion and stenosis of bilateral carotid arteries; I69.391 Dysphagia following cerebral infarction; E11.9 Type 2 diabetes mellitus without complications; E78.5 Hyperlipidemia, unspecified; F17.210 Nicotine dependence, cigarettes, uncomplicated; I10 Essential (primary) hypertension; I45.10 Unspecified right bundle-branch block; J44.9 Chronic obstructive pulmonary disease, unspecified; K21.9 Gastro-esophageal reflux disease without esophagitis; Z79.02 Long term (current) use of antithrombotics/antiplatelets; Z79.82 Long term (current) use of aspirin; Z79.84 Long term (current) use of oral hypoglycemic drugs; Z79.899 Other long term (current) drug therapy; Z83.3 Family history of diabetes mellitus; R47.81 Slurred speech; Z82.3 Family history of stroke
CPT/HCPCS: 36415; 70450; 70496; 70498; 70551; 71046; 80048; 80053; 80061; 84484; 85025; 85610; 85730; 90686; 90732; 93005; 93306; 96360; 99285

== ENCOUNTER 2022-05-19 12:51 | Observation (INO) | payer MEDICARE ==
[2022-05-19] MEDS ORDERED: MAG HYDROX/AL HYDROX/SIMETH 30 ML, HYOSCYAMINE ELIXIR 10 ML, LIDOCAINE VISCOUS 2% 10 ML PO STA ×3 (13:19)
--- NOTE | 2022-05-19 13:21 | ED ---
General Adult HPI - General Chief complaint: Chest Pain Stated complaint: Chest pain poss Stemi Time Seen by Provider: 05/19/22 13:04 Source: EMS Mode of arrival: EMS Limitations: no limitations - History of Present Illness Initial comments: Dictation was produced using [employer] dictation software. please excuse any grammatical, word or spelling errors. Chief Complaint: 67-year-old male presents emergency department for heartburn History of Present Illness: 67-year-old male presents to the emergency department for heartburn. Patient's been having heartburn symptoms for the last 2 days. Patient had heartburn in the past. EMS was called and EMS was concerned he was having a ST segment elevation OR. Initial cardiac history. He does have a history of stroke. States that he has burning sensation in his epigastric area. Nonradiating to the shoulders or extremities. Non-radiating to the jaw. No associated nausea or diaphoresis. No diarrhea. The ROS documented in this emergency department record has been reviewed and confirmed by me. Those systems with pertinent positive or negative responses have been documented in the HPI. All other systems are other negative and/or noncontributory. PHYSICAL EXAM: General Impression: Alert and oriented x3, not in acute distress HEENT: Normocephalic atraumatic, extra-ocular movements intact, pupils equal and reactive to light bilaterally, mucous membranes moist. Cardiovascular: Heart regular rate and rhythm Chest: Able to complete full sentences, no retractions, no tachypnea Abdomen: abdomen soft, non-tender, non-distended, no organomegaly Musculoskeletal: Pulses present and equal in all extremities, no peripheral edema Motor: no focal deficits noted Neurological: CN II-XII grossly intact, no focal motor or sensory deficits noted Skin: Intact with no visualized rashes Psych: Normal affect and mood ED course: 7-year-old well-appearing male presents emergency department for chief complaint heartburn. EMS was concerned of myocardial infarction. He has a right bundle-branch block without any suspicious ST elevations all signs upon arrival are within acceptable limits. Nursing notes and chart review was performed EKG interpreted by me: Ventricular rate 120, sinus tachycardia,. 25, QRS 134, QTC 390, right bundle branch block. No NC prolongation, no QTC prolongation, no ST or T-wave changes noted.Overall, this EKG is unremarkable Laboratory evaluation obtained. CBC, coag panel unremarkable. Metabolic panel is within acceptable limits. Troponin is negative. Patient given GI cocktail with did not improve his symptoms. Patient's clinical presentation suspicious for ACS. Patient we admitted for serial troponins, cardiac monitoring, sister at the bedside who is employed in the hospitals agreeable to plan. Patient given aspirin by prehospital providers. Was pt. sent in by a medical professional or institution (, YA[facility]IRA, SENIOR STAFF CONSULTANT, urgent care, hospital, or usp...) When possible be specific @ -No Did you speak to anyone other than the patient for history (EMS, parent, family, police, friend...)? What history was obtained from this source @ -Sister at the bedside Did you review nursing and triage notes (agree or disagree)? Why? @ -I reviewed and agree with nursing and triage notes Were old charts reviewed (outside hosp., previous admission, EMS record, old EKG, old radiological studies, urgent care reports/EKG's, usp records)? Report findings @ -No old charts were reviewed Differential Diagnosis (chest pain, altered mental status, abdominal pain women, abdominal pain men, vaginal bleeding, weakness, fever, dyspnea, syncope, headach e, dizziness, GI bleed, back pain, seizure, CVA, palpatations, mental health)? @ -not applicable EKG interpreted by me (3pts min.). @ -As above X-rays interpreted by me (1pt min.). @ -As above CT interpreted by me (1pt min.). @ -None done U/S interpreted by me (1pt. min.). @ -None done What testing was considered but not performed or refused? (CT, X-rays, U/S, labs)? Why? @ -None What meds were considered but not given or refused? Why? @ -None Did you discuss the management of the patient with other professionals (professionals i.e. YAJAIRA Hauser, SENIOR STAFF CONSULTANT, lab, RT, psych nurse, social media strategist, floor helper, teacher, booking officer, disease case manager)? Give summary @ - Sheet Was smoking cessation discussed for >3mins.? @ -No Was critical care preformed (if so, how long)? @ -No Were there social determinants of health that impacted care today? How? (Homelessness, low income, unemployed, alcoholism, drug addiction, transportatio n, low edu. Level, literacy, decrease access to med. care, detention, rehab)? @ -No Was there de-escalation of care discussed even if they declined (Discuss DNR or withdrawal of care, Hospice)? DNR status @ -No What co-morbidities impacted this encounter? (DM, HTN, Smoking, COPD, CAD, Cancer, CVA, ARF, Chemo, Hep., AIDS, mental health diagnosis, sleep apnea, morbid obesity)? @ -None Was patient admitted / discharged? Hospital course, mention meds given and route, prescriptions, significant lab abnormalities, going to OR and other pertinent info. @ -See above Undiagnosed new problem with uncertain prognosis? @ -No Drug Therapy requiring intensive monitoring for toxicity (Heparin, Nitro, Insulin, Cardizem)? @ -No Were any procedures done? @ -No Diagnosis/symptom? @ -Epigastric pain concerning for ACS Acute, or Chronic, or Acute on Chronic? @ -Acute Uncomplicated (without systemic symptoms) or Complicated (systemic symptoms)? @ -Uncomplicated Side effects of treatment? @ -No Exacerbation, Progression, or Severe Exacerbation? @ -No Poses a threat to life or bodily function? How? (Chest pain, USA, OR, pneumonia, PE, COPD, DKA, ARF, appy, cholecystitis, CVA, Diverticulitis, Homicidal, Suicidal, threat to staff... and all critical care pts) @ -Yes - Related Data Home Medications Medication Instructions Recorded Confirmed Glimepiride [Amaryl] 2 mg PO HS 07/20/16 05/19/22 metFORMIN HCL [Glucophage] 500 mg PO BID 07/20/16 05/19/22 Allergies Allergy/AdvReac Type Severity Reaction Status Date / Time No Known Allergies Allergy Verified 05/19/22 14:13 Review of Systems ROS Statement: Those systems with pertinent positive or pertinent negative responses have been documented in the HPI. ROS Other: All systems not noted in ROS Statement are negative. Past Medical History Past Medical History: COPD, CVA/TIA, Diabetes Mellitus, GERD/Reflux, Hyperlipidemia Additional Past Medical History / Comment(s): 2017 CVA with speach changes/R arm and hand weakness, aspiration pneumonia, slight difficulty swallowing/coughs-no special diet and can swallow pills History of Any Multi-Drug Resistant Organisms: None Reported Past Surgical History: No Surgical Hx Reported Additional Past Surgical History / Comment(s): Colonoscopy Past Anesthesia/Blood Transfusion Reactions: No Reported Reaction Past Psychological History: No Psychological Hx Reported Past Alcohol Use History: None Reported Past Drug Use History: None Reported - Past Family History Mother Family Medical History: Diabetes Mellitus Additional Family Medical History / Comment(s): Father Family Medical History: CVA/TIA Additional Family Medical History / Comment(s): from CVA at age 52yrs. General Exam Limitations: no limitations Course Vital Signs 05/19/22 12:59 Temperature 98.1 F Pulse Rate 123 H Respiratory 20 Rate Blood Pressure 115/97 O2 Sat by Pulse 95 Oximetry Medical Decision Making - Lab Data Result diagrams: 05/19/22 13:09 05/19/22 13:09 Lab Results 05/19/22 05/19/22 05/19/22 Range/Units 13:09 13:09 13:09 WBC 9.8 (3.8-10.6) k/uL RBC 5.12 (4.30-5.90) m/uL Hgb 16.4 (13.0-17.5) gm/dL Hct 47.5 (39.0-53.0) % MCV 92.6 (80.0-100.0) fL MCH 31.9 (25.0-35.0) pg MCHC 34.5 (31.0-37.0) g/dL RDW 12.8 (11.5-15.5) % Plt Count 296 (150-450) k/uL MPV 8.8 Neutrophils % 78 % Lymphocytes % 13 % Monocytes % 5 % Eosinophils % 2 % Basophils % 1 % Neutrophils # 7.6 (1.3-7.7) k/uL Lymphocytes # 1.2 (1.0-4.8) k/uL Monocytes # 0.5 (0-1.0) k/uL Eosinophils # 0.2 (0-0.7) k/uL Basophils # 0.1 (0-0.2) k/uL PT 10.2 (9.0-12.0) sec INR 1.0 (<1.2) APTT 22.2 (22.0-30.0) sec Sodium 139 (137-145) mmol/L Potassium 4.7 (3.5-5.1) mmol/L Chloride 98 (98-107) mmol/L Carbon Dioxide 33 H (22-30) mmol/L Anion Gap 8 mmol/L BUN 17 (9-20) mg/dL Creatinine 0.86 (0.66-1.25) mg/dL Est GFR (CKD-EPI)AfAm >90 (>60 ml/min/1.73 sqM) Est GFR (CKD-EPI)NonAf >90 (>60 ml/min/1.73 sqM) Glucose 390 H (74-99) mg/dL Calcium 10.1 (8.4-10.2) mg/dL Magnesium 1.9 (1.6-2.3) mg/dL Total Bilirubin 0.9 (0.2-1.3) mg/dL AST 14 L (17-59) U/L ALT 18 (4-49) U/L Alkaline Phosphatase 172 H (38-126) U/L Troponin I (0.000-0.034) ng/mL Total Protein 7.5 (6.3-8.2) g/dL Albumin 4.3 (3.5-5.0) g/dL 05/19/22 Range/Units 13:09 WBC (3.8-10.6) k/uL RBC (4.30-5.90) m/uL Hgb (13.0-17.5) gm/dL Hct (39.0-53.0) % MCV (80.0-100.0) fL MCH (25.0-35.0) pg MCHC (31.0-37.0) g/dL RDW (11.5-15.5) % Plt Count (150-450) k/uL MPV Neutrophils % % Lymphocytes % % Monocytes % % Eosinophils % % Basophils % % Neutrophils # (1.3-7.7) k/uL Lymphocytes # (1.0-4.8) k/uL Monocytes # (0-1.0) k/uL Eosinophils # (0-0.7) k/uL Basophils # (0-0.2) k/uL PT (9.0-12.0) sec INR (<1.2) APTT (22.0-30.0) sec Sodium (137-145) mmol/L Potassium (3.5-5.1) mmol/L Chloride (98-107) mmol/L Carbon Dioxide (22-30) mmol/L Anion Gap mmol/L BUN (9-20) mg/dL Creatinine (0.66-1.25) mg/dL Est GFR (CKD-EPI)AfAm (>60 ml/min/1.73 sqM) Est GFR (CKD-EPI)NonAf (>60 ml/min/1.73 sqM) Glucose (74-99) mg/dL Calcium (8.4-10.2) mg/dL Magnesium (1.6-2.3) mg/dL Total Bilirubin (0.2-1.3) mg/dL AST (17-59) U/L ALT (4-49) U/L Alkaline Phosphatase (38-126) U/L Troponin I <0.012 (0.000-0.034) ng/mL Total Protein (6.3-8.2) g/dL Albumin (3.5-5.0) g/dL Disposition Clinical Impression: Epigastric pain Disposition: ADMITTED IP TO THIS [facility] Condition: Fair Referrals: Anthony Nelson MD [REFERRING] - 1-2 days Decision Time: 14:25
[2022-05-19 13:22] LABS: Basophils # (A) 0.1 k/uL (0-0.2); Basophils % (A) 1 %; Eosinophils # (A) 0.2 k/uL (0-0.7); Eosinophils % (A) 2 %; HCT 47.5 % (39.0-53.0); HGB 16.4 gm/dL (13.0-17.5); Lymphocytes # (A) 1.2 k/uL (1.0-4.8); Lymphocytes % (A) 13 %; MCH 31.9 pg (25.0-35.0); MCHC 34.5 g/dL (31.0-37.0); MCV 92.6 fL (80.0-100.0); Mean Platelet Volume 8.8; Monocytes # (A) 0.5 k/uL (0-1.0); Monocytes % (A) 5 %; Neutrophils # (A) 7.6 k/uL (1.3-7.7); Neutrophils % (A) 78 %; Platelet Count 296 k/uL (150-450); RBC 5.12 m/uL (4.30-5.90); RDW 12.8 % (11.5-15.5); WBC 9.8 k/uL (3.8-10.6)
--- NOTE | 2022-05-19 13:28 | XR ---
EXAMINATION TYPE: XR chest 2V DATE OF EXAM: 05/19/2022 COMPARISON: 05/02/2019 TECHNIQUE: PA and lateral views submitted. HISTORY: Chest pain FINDINGS: The lungs are clear and there is no pneumothorax, pleural effusion, or focal pneumonia. Heart size normal and no overt failure. Osseous structures demonstrate hypertrophic and degenerative changes of the spine. Limited inspiration. There is a 1.5 cm nodule in the left upper lobe. IMPRESSION: 1. 1.5 cm nodular density left upper lobe, recommend CT chest.
[2022-05-19 13:31] LABS: ALT 18 U/L (4-49); AST 14 U/L (17-59); African American GFR (CKD) >90 (>60 ml/min/1.73 sqM); Albumin 4.3 g/dL (3.5-5.0); Alkaline Phosphatase 172 U/L (38-126); Anion Gap 8 mmol/L; Blood Urea Nitrogen 17 mg/dL (9-20); Calcium 10.1 mg/dL (8.4-10.2); Carbon Dioxide 33 mmol/L (22-30); Chloride 98 mmol/L (98-107); Glucose 390 mg/dL (74-99); Magnesium 1.9 mg/dL (1.6-2.3); Non-African American GFR(CKD) >90 (>60 ml/min/1.73 sqM); Potassium 4.7 mmol/L (3.5-5.1); Sodium 139 mmol/L (137-145); Total Bilirubin 0.9 mg/dL (0.2-1.3); Total Protein 7.5 g/dL (6.3-8.2)
[2022-05-19 13:37] LABS: Partial Thromboplastin Time 22.2 sec (22.0-30.0); Prothrombin Time 10.2 sec (9.0-12.0)
[2022-05-19] MEDS ORDERED: NITROGLYCERIN SL TABS 0.4 MG TAB SUBLINGUAL PRN (14:19)
[2022-05-19] MEDS ORDERED: DEXTROSE 50% SYRINGE 50 ML IVP PRN ×4 (16:47→23:41)
[2022-05-19] MEDS ORDERED: ACETAMINOPHEN TAB 325 MG TAB PO PRN (16:49)
[2022-05-19] MEDS ORDERED: HYDROcodone/APAP 10-325MG 1 EACH TAB PO PRN (16:49)
[2022-05-19] MEDS ORDERED: ALPRAZolam 0.25 MG TAB PO PRN (16:49)
[2022-05-19 17:02] LABS: Glucose,Whole Blood 353 mg/dL (70-110)
[2022-05-19] MEDS: METOPROLOL TARTRATE 12.5 MG TAB PO SCH ×2 (17:04→21:26)
[2022-05-19] MEDS: PANTOPRAZOLE 40 MG/10 ML VIAL IVP SCH ×2 (17:07→20:47)
[2022-05-19] MEDS: INSULIN ASPART (NovoLOG) 100 UNIT/ML VIAL SQ SCH ×2 (17:26→21:25)
[2022-05-19] MEDS: HEPARIN SODIUM,PORCINE/PF 5,000 UNIT/0.5 ML SYRINGE SQ SCH ×2 (17:26→21:26)
[2022-05-19 20:51] LABS: Glucose,Whole Blood 237 mg/dL (70-110)
[2022-05-19] MEDS ORDERED: MAG HYDROX/AL HYDROX/SIMETH 30 ML, HYOSCYAMINE ELIXIR 10 ML PO PRN ×2 (20:51)
--- NOTE | 2022-05-19 20:51 | P.HPIM ---
History of Present Illness This is a pleasant 67 years old male with multiple medical problems including Diabetes mellitus with hyperglycemia, present on admis jewel,COPD,CVA/TIA,GERDHyperlipidemia. Presents because of epigastric pain about 8-9/10 in severity, nonradiating feels like montes. He vomited once with no blood. He has normal bowel movements. However he denies chest pain or dyspnea, no coughing. No irregularly or neurological symptoms. No dysuria or urgency or headache or weakness. He smokes about 1.5 pack per day. And he is counseled to quit and he agrees to the nicotine patch. No alcohol or illicit drugs He is mildly tachycardic, patient is not tachypneic and he is saturating 97% on room air. Labs including CBC, INR, BMP are unremarkable, glucose elevated at 390 at 353. Liver enzymes not elevated and alkaline phosphatase 172 bilirubin normal. Troponin is negative. Chest x-ray: 1.5 cm nodular density in the left upper lobe recommend CT of the chest EKG shows sinus tachycardia with right bundle branch block at the rate of 120 The emergency room received MiraLAX 1. Review of Systems Review of systems CONSTITUTIONAL: No fever, no malaise, no fatigue. HEENT: No recent visual problems or hearing problems. Denied any sore throat. CARDIOVASCULAR: No orthopnea, PND, no palpitations, no syncope. PULMONARY: No shortness of breath, no cough, no hemoptysis. GASTROINTESTINAL: No diarrhea, Normoactive bowel sounds. NEUROLOGICAL: No headaches, no weakness, no numbness. HEMATOLOGICAL: Denies any bleeding or petechiae. GENITOURINARY: Denies any burning micturition, frequency, or urgency. MUSCULOSKELETAL/RHEUMATOLOGICAL: Denies any joint pain, swelling, or any muscle pain. ENDOCRINE: Denies any polyuria or polydipsia. Past Medical History Past Medical History: COPD, CVA/TIA, Diabetes Mellitus, GERD/Reflux, Hyperlipidemia Additional Past Medical History / Comment(s): 2017 CVA with speach changes/R arm and hand weakness, aspiration pneumonia, slight difficulty swallowing/coughs-no special diet and can swallow pills History of Any Multi-Drug Resistant Organisms: None Reported Past Surgical History: No Surgical Hx Reported Additional Past Surgical History / Comment(s): Colonoscopy Past Anesthesia/Blood Transfusion Reactions: No Reported Reaction Past Psychological History: No Psychological Hx Reported Additional Psychological History / Comment(s): Lives with his significant other. 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 Denies a history of alcohol use or recreational drug use. No experience. No international travel. Pet dogs in the home they're not new. Father from a stroke in his 50s he was a smoker. He has no children. Smoking Status: Current every day smoker Past Alcohol Use History: None Reported Additional Past Alcohol Use History / Comment(s): Pt started smoking in 1970 and is a 2 ppd smoker Past Drug Use History: None Reported - Past Family History Mother Family Medical History: Diabetes Mellitus Additional Family Medical History / Comment(s): Father Family Medical History: CVA/TIA Additional Family Medical History / Comment(s): from CVA at age 52yrs. Medications and Allergies Home Medications Medication Instructions Recorded Confirmed Type Glimepiride [Amaryl] 2 mg PO HS 07/20/16 05/19/22 History metFORMIN HCL [Glucophage] 500 mg PO BID 07/20/16 05/19/22 History Allergies Allergy/AdvReac Type Severity Reaction Status Date / Time No Known Allergies Allergy Verified 05/19/22 14:13 Physical Exam Vitals: Vital Signs Temp Pulse Pulse Resp BP BP Pulse Ox 05/19/22 17:00 98 F 114 H 18 127/78 97 05/19/22 15:30 113 H 18 140/84 05/19/22 15:00 113 H 18 143/81 05/19/22 14:30 105 H 18 133/81 98 05/19/22 14:00 108 H 18 134/85 97 05/19/22 13:30 116 H 20 115/97 98 05/19/22 13:03 120 H 20 115/97 97 05/19/22 12:59 98.1 F 123 H 20 115/97 95 Intake and Output 05/19/22 05/19/22 05/19/22 06:59 14:59 22:59 Intake Total 240 Balance 240 Intake: Oral 240 Other: Weight 58.967 kg 58.967 kg GENERAL: The patient is alert and oriented x3, not in any acute distress. Well developed, well nourished. HEENT: Pupils are round and equally reacting to light. EOMI. No scleral icterus. No conjunctival pallor. Normocephalic, atraumatic. No pharyngeal erythema. No thyromegaly. CARDIOVASCULAR: S1 and S2 present. No murmurs, rubs, or gallops. PULMONARY: Chest is clear to auscultation, no wheezing or crackles. ABDOMEN: Soft, nontender, nondistended, normoactive bowel sounds. No palpable organomegaly. MUSCULOSKELETAL: No joint swelling or deformity. EXTREMITIES: No cyanosis, clubbing, or pedal edema. NEUROLOGICAL: Gross neurological examination did not reveal any focal deficits. SKIN: No rashes. no petechiae. Results CBC & Chem 7: 05/19/22 13:09 05/19/22 13:09 Labs: Abnormal Lab Results - Last 24 Hours (Table) 05/19/22 05/19/22 Range/Units 13:09 16:54 Carbon Dioxide 33 H (22-30) mmol/L Glucose 390 H (74-99) mg/dL POC Glucose (mg/dL) 353 H (70-110) mg/dL AST 14 L (17-59) U/L Alkaline Phosphatase 172 H (38-126) U/L Assessment and Plan Assessment: epigastric pain, rule out cardiac causes Diabetes mellitus with hyperglycemia, present on admission Nicotine dependence COPD CVA/TIA GERD Hyperlipidemia Plan: Serial troponin Cardiology consult Try nitroglycerin when necessary We'll check echocardiogram Phenergan when necessary Labs and medication were reviewed.. Continue same treatment. Continue with symptomatic treatment. Resume home medication. Monitor lytes and vitals. DVT and GI prophylaxis. Further recommendations as per clinical course of the patient DVT prophylaxis: Subcutaneous heparin GI Prophylaxis: Protonix PT/OT: Pending Prognosis is guarded
[2022-05-19] MEDS ORDERED: FAMOTIDINE 20 MG/2 ML VIAL IV SCH (21:00)
[2022-05-19] MEDS: NICOTINE 21MG/24HR PATCH TRANSDERM SCH (21:26)
[2022-05-19] MEDS ORDERED: GLIMEPIRIDE 2 MG TAB PO SCH (23:45)
[2022-05-19] MEDS: metFORMIN 500 MG TAB PO SCH (23:59)
[2022-05-20 03:27] VITALS: RESP 15
[2022-05-20 05:54] LABS: Glucose,Whole Blood 187 mg/dL (70-110)
[2022-05-20] MEDS ORDERED: INSULIN ASPART (NovoLOG) 100 UNIT/ML VIAL SQ SCH (07:30)
[2022-05-20 08:14] VITALS: BP 105/60; PULSE 67; TEMP 98
[2022-05-20] MEDS ORDERED: ASPIRIN 325 MG TAB PO SCH (09:00)
[2022-05-20] MEDS: NICOTINE 21MG/24HR PATCH TRANSDERM SCH (09:35)
[2022-05-20] MEDS: METOPROLOL TARTRATE 12.5 MG TAB PO SCH (09:36)
[2022-05-20] MEDS: HEPARIN SODIUM,PORCINE/PF 5,000 UNIT/0.5 ML SYRINGE SQ SCH (09:37)
[2022-05-20] MEDS: PANTOPRAZOLE 40 MG/10 ML VIAL IVP SCH (09:37)
[2022-05-20 10:08] LABS: Basophils # (A) 0.09 X 10*3/uL (0.00-0.10); Basophils % (A) 0.9 %; Eosinophils # (A) 0.18 X 10*3/uL (0.04-0.35); Eosinophils % (A) 1.9 %; HCT 43.8 % (39.6-50.0); Immature Grans, Automated 0.4 %; Lymphocytes # (A) 2.39 X 10*3/uL (0.90-5.00); Lymphocytes % (A) 24.7 %; MCH 31.6 pg (27.0-32.0); MCHC 34.2 g/dL (32.0-37.0); MCV 92.4 fL (80.0-97.0); Mean Platelet Volume 11.3 fL (9.5-12.2); Monocytes % (A) 8.3 %; NRBC Per 100 WBC 0 /100 WBCS (0.0-0.0); Neutrophils # (A) 6.17 X 10*3/uL (1.80-7.70); Neutrophils % (A) 63.8 %; Platelet Count 265 X 10*3/uL (140-440); RBC 4.74 X 10*6/uL (4.40-5.60); RDW 12.6 % (11.5-14.5); WBC 9.67 X 10*3/uL (4.50-10.00)
[2022-05-20] MEDS: metFORMIN 500 MG TAB PO SCH (10:12)
[2022-05-20 11:01] LABS: African American GFR (CKD) 90.5 (60.0-200.0); Blood Urea Nitrogen 18.1 mg/dL (9.0-27.0); Calcium 9.5 mg/dL (8.7-10.3); Carbon Dioxide 25.7 mmol/L (20.0-27.5); Chloride 100 mmol/L (96-109); Chol/HDL Ratio 5.62 Ratio; Glucose 207 mg/dL (70-110); LDL Cholesterol,Calculated 107.5 mg/dL (0.0-131.0); Non-African American GFR(CKD) 78.1 (60.0-200.0); Potassium 4.1 mmol/L (3.5-5.5); Sodium 137 mmol/L (135-145)
--- NOTE | 2022-05-20 11:03 | CA ---
Transthoracic Echo Report Name: Nahum Verdugo Age: 67 Gender: M : 1955 Exam Date: 05/20/2022 08:29 Exam Location: [facility] Ht (in): 72 Wt (lb): 130 Ordering Physician: Taras Hauser MD Attending/Referring Phys: [id number], Murtaza Reheater Viktoriya Galvan, OMAR Procedure CPT: Indications: Rule out heart disease Cardiac Hx: Technical Quality: Technically difficult study Contrast 1: Lumason Total Dose (mL): 4 Contrast 2: Total Dose (mL): MEASUREMENTS (Male / Female) Normal Values 2D ECHO LV Diastolic Diameter PLAX 4.2 cm 4.2 - 5.9 / 3.9 - 5.3 cm LV Systolic Diameter PLAX 3.1 cm IVS Diastolic Thickness 1.1 cm 0.6 - 1.0 / 0.6 - 0.9 cm LVPW Diastolic Thickness 1.2 cm 0.6 - 1.0 / 0.6 - 0.9 cm LV Relative Wall Thickness 0.6 RV Internal Dim ED PLAX 4.1 cm M-MODE Aortic Root Diameter MM 2.8 cm LA Systolic Diameter MM 3.0 cm LA Ao Ratio MM 1.1 AV Cusp Separation MM 1.8 cm DOPPLER AV Peak Velocity 90.3 cm/s AV Peak Gradient 3.3 mmHg AV Mean Velocity 68.5 cm/s AV Mean Gradient 2.0 mmHg AV Velocity Time Integral 15.9 cm LVOT Peak Velocity 84.5 cm/s LVOT Peak Gradient 2.9 mmHg MV Area PHT 3.6 cm??? Mitral E Point Velocity 34.9 cm/s Mitral A Point Velocity 63.0 cm/s Mitral E to A Ratio 0.6 MV Deceleration Time 208.9 ms TR Peak Velocity 160.4 cm/s TR Peak Gradient 10.3 mmHg Right Ventricular Systolic Press 15.3 mmHg FINDINGS Left Ventricle Mildly increased septal wall thickness. Mildly reduced global left ventricular systolic function. Left ventricular ejection fraction is estimated at 50 %. Right Ventricle Moderate right ventricular dilatation. Right ventricular systolic pressure within normal limits. Right Atrium Normal right atrial size. Left Atrium Normal left atrial size. Mitral Valve Structurally normal mitral valve. Mild mitral regurgitation. Aortic Valve Trileaflet aortic valve. No aortic valve stenosis or regurgitation. Aortic valve sclerosis. Thickened aortic valve without stenosis. Tricuspid Valve Mild tricuspid regurgitation. Pulmonic Valve Trace pulmonic regurgitation. Pericardium No pericardial effusion. Aorta Normal size aortic root and proximal ascending aorta. CONCLUSIONS Technically difficult study. Saulo LV systolic function is well-preserved. Right ventricle is mildly enlarged. There is mild mitral valve calcification and aortic sclerosis. There is mild mitral and tricuspid insufficiency no pericardial effusion. No significant pulmonary hypertension Previewed by: Dr. Delroy Saxena MD (Electronically Signed) Final Date: 20 May 2022 11:02
[2022-05-20 12:09] LABS: Glucose,Whole Blood 266 mg/dL (70-110)
--- NOTE | 2022-05-20 13:17 | P.CRDCN ---
History of Present Illness Consult date: 05/20/22 History of present illness: History of present illness: This is a 67 year old male patient with past medical history of diabetes mellitus type 2, hypertension, gastroesophageal reflux disease. Patient presented to the hospital due to heartburn ongoing for 2 days. EMS was consulted and the patient had ST elevated [place]. Pain is nonradiating, no nausea or vomiting. Initial heart rate was elevated at 120s, blood pressure 115/97. EKG sinus tachycardia with right bundle branch block EKG #2 sinus rhythm with a right bundle branch block Chest x-ray reveals 1.5 cm nodular density left upper lobe recommend CT. Echocardiogram reveals EF of 50%. Mild mitral and tricuspid insufficiency. CBC unremarkable. Electrolytes and renal function normal. Troponin negative 3. Triglycerides 186, cholesterol 176, LDL 107, HDL 31 No home cardiac medications Review Of Systems: At the time of my evaluation: Constitutional: No fever, no chills. No weakness, fatigue or lethargy. EENT: No headache. No dizziness. Lungs: No shortness of breath, cough, no sputum production. No wheezing. Cardiovascular: No chest pain, no lower extremity edema. No palpitations. No paroxysmal nocturnal dyspnea. No orthopnea. No lightheadedness or dizziness. No syncopal episodes. Abdominal: No abdominal pain. No nausea, vomiting. No diarrhea. No constipation. No bloody or tarry stools. Genitourinary: No dysuria.. No urinary retention. Musculoskeletal: No myalgias. No muscle weakness, no frequent falls. No back pain. No neck pain. Integumentary: No wounds. No rash. No unusual bruising. Neurologic: No aphasia. No facial droop. No change in mentation. No head injury. No headache. Psychiatric: No depression. No anxiety. Endocrine: No abnormal blood sugars. Physical examination: Gen: This is a 67-year-old male VS: reviewed HEENT: Head is atraumatic, normocephalic. Pupils equal, round. Sclerae is anicteric. NECK: Supple. No JVD. No lymphadenopathy. No thyromegaly. LUNGS: Clear to auscultation. No wheezes or rhonchi. No intercostal retractions. HEART: Regular rate and rhythm. No murmur. ABDOMEN: Soft. Bowel sounds are present. No masses. No tenderness. EXTREMITIES: No pedal edema. No calf tenderness. NEUROLOGICAL: Patient is awake, alert and oriented x3. Cranial nerves 2 through 12 are grossly intact. Assessment: Epigastric pain Hypertension Plan: Decrease aspirin 81 mg daily Recommend Protonix Patient is cleared for discharge from cardiology and may follow up outpatient for stress testing with PCP. Thank you kindly for this consultation. Nurse practitioner note has been reviewed, I agree with documented findings and plan of care. Patient was seen and examined. Past Medical History Past Medical History: COPD, CVA/TIA, Diabetes Mellitus, GERD/Reflux, Hyperlipidemia Additional Past Medical History / Comment(s): 2017 CVA with speach changes/R arm and hand weakness, aspiration pneumonia, slight difficulty swallowing/coughs-no special diet and can swallow pills History of Any Multi-Drug Resistant Organisms: None Reported Past Surgical History: No Surgical Hx Reported Additional Past Surgical History / Comment(s): Colonoscopy Past Anesthesia/Blood Transfusion Reactions: No Reported Reaction Past Psychological History: No Psychological Hx Reported Additional Psychological History / Comment(s): Lives with his significant other. 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 Denies a history of alcohol use or recreational drug use. No experience. No international travel. Pet dogs in the home they're not new. Father from a stroke in his 50s he was a smoker. He has no children. Smoking Status: Current every day smoker Past Alcohol Use History: None Reported Additional Past Alcohol Use History / Comment(s): Pt started smoking in 1970 and is a 2 ppd smoker Past Drug Use History: None Reported - Past Family History Mother Family Medical History: Diabetes Mellitus Additional Family Medical History / Comment(s): Father Family Medical History: CVA/TIA Additional Family Medical History / Comment(s): from CVA at age 52yrs. Medications and Allergies Home Medications Medication Instructions Recorded Confirmed Type Acetaminophen Tab [Tylenol] 325 mg PO Q6HR PRN tab 05/20/22 Rx Aspirin 81 mg PO DAILY #30 tab 05/20/22 Rx Glimepiride [Amaryl] 2 mg PO HS #30 tab 05/20/22 Rx Metoprolol Tartrate [Lopressor] 12.5 mg PO BID #60 tab 05/20/22 Rx Nitroglycerin Sl Tabs [Nitrostat] 0.4 mg SUBLINGUAL Q5M PRN #10 tab 05/20/22 Rx Omeprazole [PriLOSEC] 20 mg PO AC-BID #60 cap 05/20/22 Rx metFORMIN HCL [Glucophage] 500 mg PO BID #60 tab 05/20/22 Rx Allergies Allergy/AdvReac Type Severity Reaction Status Date / Time No Known Allergies Allergy Verified 05/19/22 14:13 Physical Exam Vitals: Vital Signs Temp Pulse Pulse Pulse Resp BP BP 05/20/22 01:42 97.4 F L 81 15 100/60 05/19/22 20:16 98.2 F 81 16 120/76 05/19/22 17:00 98 F 114 H 18 127/78 05/19/22 15:30 113 H 18 140/84 05/19/22 15:00 113 H 18 143/81 05/19/22 14:30 105 H 18 133/81 05/19/22 14:00 108 H 18 134/85 05/19/22 13:30 116 H 20 115/97 05/19/22 13:03 120 H 20 115/97 05/19/22 12:59 98.1 F 123 H 20 115/97 Pulse Ox 05/20/22 01:42 94 L 05/19/22 20:16 97 05/19/22 17:00 97 05/19/22 15:30 05/19/22 15:00 05/19/22 14:30 98 05/19/22 14:00 97 05/19/22 13:30 98 05/19/22 13:03 97 05/19/22 12:59 95 Intake and Output 05/19/22 05/20/22 05/20/22 22:59 06:59 14:59 Intake Total 240 Output Total 0 Balance 240 0 Intake: Oral 240 Output: Emesis 0 Other: # Bowel Movements 0 Weight 58.967 kg Results 05/20/22 04:41 05/20/22 04:41 Cardiac Enzymes 05/19/22 05/19/22 05/19/22 Range/Units 13:09 13:09 16:43 AST 14 L (17-59) U/L Troponin I <0.012 <0.012 (0.000-0.034) ng/mL 05/19/22 Range/Units 19:25 AST (17-59) U/L Troponin I <0.012 (0.000-0.034) ng/mL Coagulation 05/19/22 Range/Units 13:09 PT 10.2 (9.0-12.0) sec APTT 22.2 (22.0-30.0) sec CBC 05/19/22 Range/Units 13:09 WBC 9.8 (3.8-10.6) k/uL RBC 5.12 (4.30-5.90) m/uL Hgb 16.4 (13.0-17.5) gm/dL Hct 47.5 (39.0-53.0) % Plt Count 296 (150-450) k/uL Comprehensive Metabolic Panel 05/19/22 Range/Units 13:09 Sodium 139 (137-145) mmol/L Potassium 4.7 (3.5-5.1) mmol/L Chloride 98 (98-107) mmol/L Carbon Dioxide 33 H (22-30) mmol/L BUN 17 (9-20) mg/dL Creatinine 0.86 (0.66-1.25) mg/dL Glucose 390 H (74-99) mg/dL Calcium 10.1 (8.4-10.2) mg/dL AST 14 L (17-59) U/L ALT 18 (4-49) U/L Alkaline Phosphatase 172 H (38-126) U/L Total Protein 7.5 (6.3-8.2) g/dL Albumin 4.3 (3.5-5.0) g/dL Current Medications Generic Name Dose Route Start Last Admin Trade Name Freq PRN Reason Stop Dose Admin Acetaminophen 325 mg 05/19/22 16:49 Acetaminophen Tab 325 Mg Tab PO Q6HR PRN Fever and/ or Pain Hydrocodone Bitart/Acetaminophen 1 each 05/19/22 16:49 Hydrocodone/Apap 10-325mg 1 Each Tab PO Q6HR PRN Pain Alprazolam 0.25 mg 05/19/22 16:49 Alprazolam 0.25 Mg Tab PO BID PRN Anxiety Aspirin 325 mg 05/20/22 09:00 Aspirin 325 Mg Tab PO DAILY MICHEAL Dextrose/Water 50 ml 05/19/22 16:47 Dextrose 50% Syringe 50 Ml IVP PER PROTOCOL PRN Hypoglycemia Protocol Dextrose/Water 25 ml 05/19/22 16:47 Dextrose 50% Syringe 50 Ml IVP PER PROTOCOL PRN Hypoglycemia Protocol Dextrose/Water 25 ml 05/19/22 23:41 Dextrose 50% Syringe 50 Ml IVP PER PROTOCOL PRN Hypoglycemia Protocol Dextrose/Water 50 ml 05/19/22 23:41 Dextrose 50% Syringe 50 Ml IVP PER PROTOCOL PRN Hypoglycemia Protocol Glimepiride 2 mg 05/19/22 23:45 05/19/22 23:59 Glimepiride 2 Mg Tab PO Not Given HS MICHEAL Heparin Sodium (Porcine) 5,000 unit 05/19/22 17:00 05/19/22 21:26 Heparin Sodium,Porcine/Pf 5,000 Unit/0.5 Ml Syringe SQ Not Given Q8HR MICHEAL Insulin Aspart 0 unit 05/20/22 07:30 05/20/22 06:02 Insulin Aspart (Novolog) 100 Unit/Ml Vial SQ 2 unit ACHS MICHEAL Administration Protocol Metformin HCl 500 mg 05/19/22 23:45 05/19/22 23:59 Metformin 500 Mg Tab PO Not Given BID MICHEAL Metoprolol Tartrate 12.5 mg 05/19/22 16:46 05/19/22 21:26 Metoprolol Tartrate 12.5 Mg Tab PO 12.5 mg BID MICHEAL Administration Nicotine 1 patch 05/19/22 20:45 05/19/22 21:26 Nicotine 21mg/24hr Patch TRANSDERM 1 patch DAILY MICHEAL Administration Nitroglycerin 0.4 mg 05/19/22 14:19 Nitroglycerin Sl Tabs 0.4 Mg Tab SUBLINGUAL Q5M PRN Chest Pain Pantoprazole Sodium 40 mg 05/19/22 16:48 05/19/22 20:47 Pantoprazole 40 Mg/10 Ml Vial IVP Not Given BID MICHEAL Intake and Output 05/19/22 05/20/22 05/20/22 22:59 06:59 14:59 Intake Total 240 Output Total 0 Balance 240 0 Intake: Oral 240 Output: Emesis 0 Other: # Bowel Movements 0 Weight 58.967 kg 05/19/22 13:09 05/19/22 13:09
[2022-05-21] MEDS ORDERED: ASPIRIN 81 MG PO SCH (09:00)
--- NOTE | 2022-05-25 12:14 | P.DS ---
Providers Date of admission: 05/19/22 14:20 Attending physician: Taras Hauser MD Consults: 05/19/22 14:19 Consult Physician Urgent Consulting Provider: Kevin Kaur Consult Reason/Comments: epigastric pain Do you want consulting provider notified?: Yes Primary care physician: Nino Carrillo Hospital Course: diagnoses: epigastric pain, cardiac causes has been ruled out, and pain resolved upon di scharge Diabetes mellitus with hyperglycemia, present on admission Nicotine dependence, pt is counseled to quit extensively COPD CVA/TIA GERD Hyperlipidemia hospital course: This is a pleasant 67 years old male with multiple medical problems including Diabetes mellitus with hyperglycemia, present on admission,COPD,CVA/TIA,GERD, Hyperlipidemia. he is been evaulaed and treated symptomatically and pt showed interval improvement and his epigastric pain was resolved and pt is tolerating diet well also pt was evaluated by card grinder helper and he cleared him for discharge and follow as outpatint with stress test , pt informed and he agrees pt denies any other new symptoms and he was eager to be discharged Problems and management plan were discussed with the patient and he verbalized understanding and acceptance Patient was found stable and can be discharged home in guarded prognosis however he needs follow-up as an outpatient. Patient was instructed to follow up with PCP within one week and patient agrees pt was instructed to follow up by card grinder helper dr. kaur in one wee and pt agrees to call and make appointment pt also refered as outpatint to follow up [facility] godfrey venegas in one week and he agrees to call and make appointment Physical exam Gen: patient is a AAOx3, no distress CVS: S1-S2, RRR, no murmur Lungs: B/L CTA, no wheezing Abdomen: soft, no distention, no tenderness, positive bowel sounds Extremity: no leg edema or induration Time spent more than 35 minutes Patient Condition at Discharge: Fair Plan - Discharge Summary New Discharge Prescriptions: New Aspirin 81 mg PO DAILY #30 tab Metoprolol Tartrate [Lopressor] 12.5 mg PO BID #60 tab Nitroglycerin Sl Tabs [Nitrostat] 0.4 mg SUBLINGUAL Q5M PRN #10 tab PRN Reason: Chest Pain Omeprazole [PriLOSEC] 20 mg PO AC-BID #60 cap Acetaminophen Tab [Tylenol] 325 mg PO Q6HR PRN tab PRN Reason: Fever And/ Or Pain Continue Glimepiride [Amaryl] 2 mg PO HS #30 tab metFORMIN HCL [Glucophage] 500 mg PO BID #60 tab Discharge Medication List Acetaminophen Tab [Tylenol] 325 mg PO Q6HR PRN tab 05/20/22 [Rx] Aspirin 81 mg PO DAILY #30 tab 05/20/22 [Rx] Glimepiride [Amaryl] 2 mg PO HS #30 tab 05/20/22 [Rx] Metoprolol Tartrate [Lopressor] 12.5 mg PO BID #60 tab 05/20/22 [Rx] Nitroglycerin Sl Tabs [Nitrostat] 0.4 mg SUBLINGUAL Q5M PRN #10 tab 05/20/22 [Rx] Omeprazole [PriLOSEC] 20 mg PO AC-BID #60 cap 05/20/22 [Rx] metFORMIN HCL [Glucophage] 500 mg PO BID #60 tab 05/20/22 [Rx] Follow up Appointment(s)/Referral(s): Anthony Nelson MD [REFERRING] - 1-2 days Kevin Kaur DO [STAFF PHYSICIAN] - 1 Week (we Recommend outpatient stress test ) Yamileth Hernandez MD [STAFF PHYSICIAN] - 1 Week (Herpetologist for your epigastric pain) [facility], [NON-STAFF] - 1 Week Patient Instructions/Handouts: Hypotension (DC), Epigastric Pain (ED) Activity/Diet/Wound Care/Special Instructions: Heart healthy diet , low carbohydrate diet 1600 kcal per day activity is restricted till you see your doctor We recommend to check your blood glucose 4 times a day, before each time and at bedtime. Keep the results in a log book, and bring it to your doctor on your appointment date if your Glucose less than 70 or more than 400 then call 911 on come to emergency room Discharge Disposition: HOME WITH HOME HEALTH SERVICES
== END 2022-05-20 13:23 | disposition home health service (06) ==
LOC: EC 12:51 → 6NMEDSUR 14:20
PROVIDERS: ADMIT Internal Medicine; ATTEND Internal Medicine
DX: I20.9 Angina pectoris, unspecified (principal); R10.13 Epigastric pain; E11.65 Type 2 diabetes mellitus with hyperglycemia; K21.9 Gastro-esophageal reflux disease without esophagitis; R00.0 Tachycardia, unspecified; I10 Essential (primary) hypertension; I08.1 Rheumatic disorders of both mitral and tricuspid valves; F17.210 Nicotine dependence, cigarettes, uncomplicated; Z71.6 Tobacco abuse counseling; J44.9 Chronic obstructive pulmonary disease, unspecified; Z86.73 Personal history of transient ischemic attack (TIA), and cerebral infarction without residual deficits; E78.5 Hyperlipidemia, unspecified; Z79.82 Long term (current) use of aspirin; Z79.84 Long term (current) use of oral hypoglycemic drugs; Z79.899 Other long term (current) drug therapy
CPT/HCPCS: 96376; 96372 ×2; 96374; 99285; 36415; 93005; 97162; 97530; 97165; 80061; 80053; 80048; 83735; 84484; 85025 ×2; 85610; 85730; 83036; 71046; G0378 ×2; C8929; S4990 ×2; C9113 ×2; Q9950; J1644 ×2; 93306

== ENCOUNTER → 2023-04-14 | Outpatient (CLI) | payer MEDICARE ==
--- NOTE | 2023-04-14 12:44 | CT ---
EXAMINATION TYPE: CT brain wo con DATE OF EXAM: 04/14/2023 COMPARISON: 05/02/2019 HISTORY: cerebral infrc CT DLP: 1182.6 mGycm Automated exposure control for dose reduction was used. FINDINGS: The ventricles, basal cisterns and sulci over convexities are within normal to the patient's age and there is no mass effect or shift of midline structures. There is a large remote left frontal cortical and subcortical white matter infarct. There is diffuse decreased density in the periventricular white matter consistent with marked chronic ischemic white matter demyelination. There is no acute intra or extra-axial hemorrhage. The posterior fossa including the brainstem, fourth ventricle and cerebellar pontine angles are gross ly normal. The intraorbital contents appear normal and symmetric. There are marked chronic inflammatory changes in the right maxillary sinus. There is mild fluid in th e mastoid air cells. The calvarium is intact. IMPRESSION: 1. No acute bleed or mass effect. 2. Mild to moderate age-appropriate atrophy. 3. Marked chronic ischemic white matter demyelination. 4. Large remote left frontal infarct IMPRESSION:
--- NOTE | 2023-04-14 12:55 | CTL ---
EXAMINATION TYPE: CT Low Dose Lung DATE OF EXAM ORDERED: 04/14/2023 HISTORY: Lung cancer screening CT DLP: 90.[address] CTDI: 2.7 mGy Automated exposure control for dose reduction was used. SCREENING VISIT: 1 COMPARISON: None TECHNIQUE: Low dose computed tomography scan was performed through the chest at 1 mm thick sections a nd reconstructed images in multiple planes at 1 mm and [address] DIAGNOSTIC QUALITY: Satisfactory FINDINGS: There are no suspicious lung nodules or masses. There is no abnormal airspace/consolidative density or abnormal interstitial density. There is no pleural effusion, pleural thickening or pneumothorax. The great vessels chest are normal is no mediastinal, hilar or axillary adenopathy. Limited scanning the upper abdomen is no gross abnormality. Osseous structures are intact without focal osseous IMPRESSION: 1. Lung RADS category 1 negative. 2. Continue routine screening yearly intervals. 3. No acute cardiopulmonary disease.
--- NOTE | 2023-04-14 14:34 | US ---
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 Indirect Doppler criteria was utilized. FINDINGS: EXAM MEASUREMENTS: RIGHT: Peak Systolic Velocity (PSV) cm/sec ----- Right CCA: 73.2 ----- Right ICA: 78.4 ----- Right ECA: 115.2 ICA/CCA ratio: 1.1 RIGHT: End Diastole cm/sec ----- Right CCA: 13.8 ----- Right ICA: 20.3 ----- Right ECA: 14.6 LEFT: Peak Systolic Velocity (PSV) cm/sec ----- Left CCA: 68.8 ----- Left ICA: 59.8 ----- Left ECA: 100.4 ICA/CCA ratio: 0.9 LEFT: End Diastole cm/sec ----- Left CCA: 0.0 ----- Left ICA: 16.2 ----- Left ECA: 12.4 VERTEBRALS (direction of flow): Right Vertebral: Antegrade Left Vertebral: Antegrade Rhythm: Normal No significant stenosis areas of atherosclerotic plaque bilaterally. IMPRESSION: No significant hemodynamic stenosis as visualized. Criteria for Assigning % of Stenosis / Diameter reduction (Estimation based on the indirect measurements of the internal carotid artery velocities (ICA PSV). 1. Normal (no stenosis)=ICA PSV < 125 cm/s: ratio < 2.0: ICA EDV<40 cm/s. 2. Less than 50% stenosis=ICA PSV < 125 cm/s: ratio < 2.0: ICA EDV<40 cm/s. 3. 50 to 69% stenosis=ICA PSV of 125 to 230 cm/s: ration 2.0 ? 4.0: ICA EDV 40-100 cm/s. 4. Greater than 70% stenosis to near occlusion= ICA PSV > 230 cm/s: ratio > 4.0: ICA EDV > 100 cm/s. 5. Near occlusion= ICA PSV velocities may be low or undetectable: variable ratio and ICA EDV. 6. Total occlusion=unable to detect flow.
--- NOTE | 2023-04-14 18:12 | CA ---
Transthoracic Echo Report Name: Nahum Verdugo Age: 68 Gender: M : 1955 Exam Date: 04/14/2023 12:55 Exam Location: [place] [facility] Ht (in): 72 Wt (lb): 145 Ordering Physician: Naga Webb MD Attending/Referring Phys: Marketing Database Coordinator Gayla Godinez [facility] Procedure CPT: Indications: I63.312 CEREBRAL INFRC Cardiac Hx: Technical Quality: Technically difficult study Contrast 1: Total Dose (mL): Contrast 2: Total Dose (mL): MEASUREMENTS (Male / Female) Normal Values 2D ECHO LV Diastolic Diameter PLAX 4.6 cm 4.2 - 5.9 / 3.9 - 5.3 cm LV Systolic Diameter PLAX 3.7 cm IVS Diastolic Thickness 0.9 cm 0.6 - 1.0 / 0.6 - 0.9 cm LVPW Diastolic Thickness 0.8 cm 0.6 - 1.0 / 0.6 - 0.9 cm LV Relative Wall Thickness 0.4 LVOT Diameter 2.0 cm LV Diastolic Volume MOD BP 54.6 cm??? 67 - 155 / 56 - 104 cm??? LV Systolic Volume MOD BP 35.9 cm??? 22 - 58 / 19 - 49 cm??? LV Ejection Fraction MOD BP 34.2 % >= 55 % LV Cardiac Index MOD BP 812.0 cm???/min???m??? LV Diastolic Volume MOD 4C 66.2 cm??? LV Systolic Volume MOD 4C 47.2 cm??? LV Ejection Fraction MOD 4C 28.7 % LV Cardiac Index MOD 4C 827.1 cm???/min???m??? LV Diastolic Length 4C 6.9 cm LV Systolic Length 4C 6.3 cm LV Diastolic Volume MOD 2C 43.4 cm??? LV Systolic Volume MOD 2C 23.8 cm??? LV Ejection Fraction MOD 2C 45.2 % LV Cardiac Index MOD 2C 851.6 cm???/min???m??? LV Diastolic Length 2C 6.7 cm LV Systolic Length 2C 5.4 cm M-MODE Aortic Root Diameter MM 2.8 cm LA Systolic Diameter MM 3.4 cm LA Ao Ratio MM 1.2 AV Cusp Separation MM 2.2 cm DOPPLER AV Peak Velocity 91.0 cm/s AV Peak Gradient 3.3 mmHg AV Mean Velocity 66.8 cm/s AV Mean Gradient 1.9 mmHg AV Velocity Time Integral 19.4 cm LVOT Peak Velocity 75.8 cm/s LVOT Peak Gradient 2.3 mmHg LVOT Velocity Time Integral 14.5 cm LVOT Stroke Volume 47.5 cm??? LVOT Stroke Volume Index 25.5 ml/m??? LVOT Cardiac Index 2063.2 cm???/min???m??? AV Area Cont Eq vti 2.4 cm??? AV Area Cont Eq pk 2.7 cm??? Mitral E Point Velocity 45.6 cm/s Mitral A Point Velocity 68.3 cm/s Mitral E to A Ratio 0.7 MV Deceleration Time 191.7 ms LV E' Lateral Velocity 8.4 cm/s Mitral E to LV E' Lateral Ratio 5.4 LV E' Septal Velocity 6.1 cm/s Mitral E to LV E' Septal Ratio 7.4 Right Atrial Pressure 3.0 mmHg FINDINGS Left Ventricle Left ventricular wall thickness normal. Left ventricular cavity size normal. Mildly impaired LV function with EF around 45% Right Ventricle Mild right ventricular dilatation. Unable to estimate the right ventricular systolic pressure. Right Atrium Normal right atrial size. Left Atrium Normal left atrial size. Mitral Valve Structurally normal mitral valve. No mitral regurgitation. Aortic Valve Thickened aortic valve without stenosis. No aortic regurgitation. Tricuspid Valve Structurally normal tricuspid valve. No tricuspid regurgitation. Pulmonic Valve Pulmonic valve not well visualized. Pericardium No pericardial effusion. Aorta Normal size aortic root. CONCLUSIONS Mildly impaired LV function with EF around 45% Previewed by: Dr. Gui Freedman MD (Electronically Signed) Final Date: 14 April 2023 18:12
--- NOTE | 2023-04-15 11:01 | US ---
EXAMINATION TYPE: US arterial LE single level DATE OF EXAM: 04/14/2023 2:46 PM CLINICAL INDICATION: Male, 68 years old with history of I73.9 PERIPHERAL VASCULAR DISEASE, UNSPECIFIE D; History of: Smoker: Previous Hypertension: No Diabetic: Yes Hyperlipidemia: Yes TIA/CVA: Yes - 2020 Previous Vascular Surgery: No MO: No Doppler Waveforms: Right: Biphasic Left: Biphasic Right Brachial Pressure: 127 Left Brachial Pressure: 137 Ankle-Brachial Indices: Right: 1.02 Left: 1.01 Toe Brachial Indices: Right: 0.62 Left: 0.68 IMPRESSION: Normal ankle-brachial indices bilaterally.
== END | disposition home or self-care (01) ==
LOC: RADCTMAIN 12:08
PROVIDERS: ATTEND Internal Medicine
DX: Z12.2 Encounter for screening for malignant neoplasm of respiratory organs (principal); I63.312 Cerebral infarction due to thrombosis of left middle cerebral artery; I73.9 Peripheral vascular disease, unspecified; F17.210 Nicotine dependence, cigarettes, uncomplicated
CPT/HCPCS: 70450; 71271; 93306; 93880; 93922

== ENCOUNTER 2023-05-11 10:19 | Inpatient (IN) | payer MEDICARE ==
--- NOTE | 2023-05-11 11:04 | ED ---
Dizziness HPI - General Stated Complaint: dizzy, falling multiple times Time Seen by Provider: 05/11/23 11:01 - History of Present Illness Initial Comments: Patient is a 68-year-old gentleman who has a history of previous CVAs with chronic right sided deficits he presents to the emergency room with complaints of dizziness and frequent falls that started yesterday. Patient lives at home with his sister and she has had to get him up off the floor multiple times yesterday and throughout the evening. Patient denies any new paralysis or weakness. He states as though he feels lightheaded with standing. Initially they thought symptoms. Patient denies a cough, chest pain, shortness breath. Patient had recent imaging studies for CVA evaluation 04/29/23 persisted patient has not taken his medications for a few days because he was not feeling well. Patient eyes any hemoptysis. Denies any urinary symptoms. - Related Data Home Medications Medication Instructions Recorded Confirmed Atorvastatin [Lipitor] 40 mg PO HS 05/11/23 05/11/23 metFORMIN HCL [Glucophage] 500 mg PO TID 05/11/23 05/11/23 Previous Rx's Medication Instructions Recorded Aspirin 81 mg PO DAILY #30 tab 05/20/22 Allergies Allergy/AdvReac Type Severity Reaction Status Date / Time No Known Allergies Allergy Verified 05/11/23 13:31 Review of Systems ROS Statement: Those systems with pertinent positive or pertinent negative responses have been documented in the HPI. ROS Other: All systems not noted in ROS Statement are negative. Past Medical History Past Medical History: COPD, CVA/TIA, Diabetes Mellitus, GERD/Reflux, Hyperlipidemia Additional Past Medical History / Comment(s): 2017 CVA with speach changes/R arm and hand weakness, aspiration pneumonia, slight difficulty swallowing/coughs-no special diet and can swallow pills History of Any Multi-Drug Resistant Organisms: None Reported Past Surgical History: No Surgical Hx Reported Additional Past Surgical History / Comment(s): Colonoscopy Past Anesthesia/Blood Transfusion Reactions: No Reported Reaction Past Psychological History: No Psychological Hx Reported Additional Psychological History / Comment(s): Lives with his significant other. 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 Denies a history of alcoho l use or recreational drug use. No experience. No international travel. Pet dogs in the home they're not new. Father from a stroke in his 50s he was a smoker. He has no children. Smoking Status: Current every day smoker Past Alcohol Use History: None Reported Additional Past Alcohol Use History / Comment(s): Pt started smoking in 1970 and is a 2 ppd smoker Past Drug Use History: None Reported - Past Family History Mother Family Medical History: Diabetes Mellitus Additional Family Medical History / Comment(s): Father Family Medical History: CVA/TIA Additional Family Medical History / Comment(s): from CVA at age 52yrs. General Exam - General Exam Comments Initial Comments: Visual Physical Exam Vital signs reviewed General: Well-appearing, nontoxic, no acute distress. Head: Normocephalic, atraumatic Eyes: PERRLA, EOMI ENT: Airway patent Chest: Nonlabored breathing Skin: No visual rash, normal skin tone Neuro: Alert and oriented 3. Chronic right-sided weakness, worse in the right hand Musculoskeletal: No gross abnormalities Limitations: no limitations General appearance: alert, in no apparent distress Head exam: Present: atraumatic Eye exam: Present: normal appearance, PERRL ENT exam: Present: normal exam Neck exam: Present: normal inspection, full ROM. Absent: tenderness, meningismus, lymphadenopathy Respiratory exam: Present: normal lung sounds bilaterally, respiratory distress Cardiovascular Exam: Present: normal rhythm, tachycardia GI/Abdominal exam: Present: soft Extremities exam: Present: other (Chronic decreased range of motion and strength of the right upper extremity worse than the right hand. Decreased strength in the right lower extremity, chronic in nature.). Absent: tenderness, pedal edema, joint swelling Back exam: Present: full ROM Neurological exam: Present: alert, oriented X3, other (Current chronic deficits in the right extremities worse in the right upper extremity and hand. There is decreased strength in the right lower extremity as well.) Psychiatric exam: Present: normal affect, normal mood Skin exam: Present: warm, dry Course Vital Signs 05/11/23 05/11/23 05/11/23 11:28 13:28 15:54 Temperature 98.3 F Pulse Rate 123 H 120 H 121 H Respiratory 18 16 16 Rate Blood Pressure 121/55 151/63 135/65 O2 Sat by Pulse 94 L 95 96 Oximetry 05/11/23 17:23 Temperature Pulse Rate 121 H Respiratory 18 Rate Blood Pressure 123/57 O2 Sat by Pulse 95 Oximetry - Reevaluation(s) Reevaluation #1: 05/11/23 1754 Patient was started on DKA protocol. ABG has negative pH however. O2 was low at 54. Patient placed on oxygen. Receiving IV fluids as well. Given that the patient was tachycardic with leukocytosis and lactic acid was ordered and was 2.4. We'll continue to monitor lactic acid likely elevated due to the DKA. We'll cover with cefepime prophylactically. blood cultures were drawn. EKG Findings - EKG Comments: EKG Findings:: EKG shows sinus tachycardia rate of 122 bpm where bundle-branch block seen no acute ST segment elevation Medical Decision Making - Medical Decision Making Quick note portion completed by myself, Moriah Bowers PAC. Was pt. sent in by a medical professional or institution (, PA, CANOPY STRINGER, urgent care, hospital, or fpc...) When possible be specific @ -[No] Did you speak to anyone other than the patient for history (EMS, parent, family, police, friend...)? What history was obtained from this source @ -Sister Did you review nursing and triage notes (agree or disagree)? Why? @ -[I reviewed and agree with nursing and triage notes] Were old charts reviewed (outside hosp., previous admission, EMS record, old EKG, old radiological studies, urgent care reports/EKG's, fpc records)? Report findings @ -yes old charts were reviewed Differential Diagnosis (chest pain, altered mental status, abdominal pain women, abdominal pain men, vaginal bleeding, weakness, fever, dyspnea, syncope, headache, dizziness, GI bleed, back pain, seizure, CVA, palpatations, mental health, musculoskeletal)? @ -[CVA, TIA, Covid, orthostatic hypotension, DKA, pneumonia EKG interpreted by me (3pts min.). @ -[EKG shows sinus tachycardia rate of [address] segment elevation] X-rays interpreted by me (1pt min.). @ -[No pneumonia or acute changes seen on chest x-ray] CT interpreted by me (1pt min.). @ -Has head CT shows chronic white matter changes and chronic changes secondary to the CVA no acute changes U/S interpreted by me (1pt. min.). @ -[None done] What testing was considered but not performed or refused? (CT, X-rays, U/S, labs)? Why? @ -[None] What meds were considered but not given or refused? Why? @ -[None] Did you discuss the management of the patient with other professionals (professionals i.e. , PA, CANOPY STRINGER, lab, RT, psych nurse, social sciences instructor, director of recruitment, teacher, development officer, shelter case manager)? Give summary @ -Discussed admission with Dr. Jaimes at the admitting physician however he requested that the patient be placed in ICU for DKA. I spoke with Dr. Rubio, the ferruler regarding ICU admission and refused. Stated that the patient did not need to go to the ICU however he did recommend a CT angiography ordered on this patient. I updated Dr. Jaimes regarding this, which he acknowledged. I discussed patient's symptoms are And management with both attending ED physician Dr. Tomas and Dr. Diane today. Was smoking cessation discussed for >3mins.? @ -[No] Was critical care preformed (if so, how long)? @ -[Yes DKA, 32 minutes Were there social determinants of health that impacted care today? How? (Homelessness, low income, unemployed, alcoholism, drug addiction, transportation, low edu. Level, literacy, decrease access to med. care, group home, rehab)? @ -[No] Was there de-escalation of care discussed even if they declined (Discuss DNR or withdrawal of care, Hospice)? DNR status @ -[No] What co-morbidities impacted this encounter? (DM, HTN, Smoking, COPD, CAD, Cancer, CVA, ARF, Chemo, Hep., AIDS, mental health diagnosis, sleep apnea, morbid obesity)? @ -[CVA, diabetes, hypertension Was patient admitted / discharged? Hospital course, mention meds given and route, prescriptions, significant lab abnormalities, going to OR and other pertinent info. @ -[he will be admitted to stepdown unit for further management and PTK, weakness and frequent falls. Undiagnosed new problem with uncertain prognosis? @ -[No] Drug Therapy requiring intensive monitoring for toxicity (Heparin, Nitro, Insulin, Cardizem)? @ -[No] Were any procedures done? @ -[No] Diagnosis/symptom? @ -[DKA, weakness, frequent falls, leukocytosis Acute, or Chronic, or Acute on Chronic? @ acute Uncomplicated (without systemic symptoms) or Complicated (systemic symptoms)? @ -[complicated Side effects of treatment? @ -[No] Exacerbation, Progression, or Severe Exacerbation? @ -[No] Poses a threat to life or bodily function? How? (Chest pain, USA, SD, pneumonia, PE, COPD, DKA, ARF, appy, cholecystitis, CVA, Diverticulitis, Homicidal, Suicidal, threat to staff... and all critical care pts) @ -yes] - Lab Data Result diagrams: 05/11/23 13:26 05/11/23 17:49 Lab Results 05/11/23 05/11/23 05/11/23 Range/Units 11:35 13:26 13:26 WBC 19.6 H (3.8-10.6) k/uL RBC 4.97 (4.30-5.90) m/uL Hgb 16.1 (13.0-17.5) gm/dL Hct 49.8 (39.0-53.0) % MCV 100.2 H (80.0-100.0) fL MCH 32.5 (25.0-35.0) pg MCHC 32.4 (31.0-37.0) g/dL RDW 13.1 (11.5-15.5) % Plt Count 357 (150-450) k/uL MPV 8.8 Neutrophils % 91 % Lymphocytes % 4 % Monocytes % 4 % Eosinophils % 0 % Basophils % 0 % Neutrophils # 17.8 H (1.3-7.7) k/uL Lymphocytes # 0.9 L (1.0-4.8) k/uL Monocytes # 0.7 (0-1.0) k/uL Eosinophils # 0.1 (0-0.7) k/uL Basophils # 0.0 (0-0.2) k/uL PT 10.2 (10.0-12.5) sec INR 0.9 (<1.2) APTT 23.0 (22.0-30.0) sec Sample Site ABG pH (7.35-7.45) ABG pCO2 (35-45) mmHg ABG pO2 (83-108) mmHg ABG HCO3 (21-25) mmol/L ABG Total CO2 (19-24) mmol/L ABG O2 Saturation (94-97) % ABG Base Excess mmol/L Emmanuel Test FiO2 % Sodium (137-145) mmol/L Potassium (3.5-5.1) mmol/L Chloride (98-107) mmol/L Carbon Dioxide (22-30) mmol/L Anion Gap mmol/L BUN (9-20) mg/dL Creatinine (0.66-1.25) mg/dL Est GFR (CKD-EPI)AfAm (>60 ml/min/1.73 sqM) Est GFR (CKD-EPI)NonAf (>60 ml/min/1.73 sqM) Glucose (74-99) mg/dL POC Glucose (mg/dL) (70-110) mg/dL POC Glu Supervisor Hardboard ID Lactic Ac Sepsis Rflx Plasma Lactic Acid Scout (0.7-2.0) mmol/L Calcium (8.4-10.2) mg/dL Phosphorus (2.5-4.5) mg/dL Total Bilirubin (0.2-1.3) mg/dL AST (17-59) U/L ALT (4-49) U/L Alkaline Phosphatase (38-126) U/L Troponin I (0.000-0.034) ng/mL NT-Pro-B Natriuret Pep pg/mL Total Protein (6.3-8.2) g/dL Albumin (3.5-5.0) g/dL Urine Color Urine Appearance (Clear) Urine pH (5.0-8.0) Ur Specific Flinton (1.001-1.035) Urine Protein (Negative) Urine Glucose (UA) (Negative) Urine Ketones (Negative) Urine Blood (Negative) Urine Nitrite (Negative) Urine Bilirubin (Negative) Urine Urobilinogen (<2.0) mg/dL Ur Leukocyte Esterase (Negative) Influenza Type A (PCR) Not Detected (Not Detectd) Influenza Type B (PCR) Not Detected (Not Detectd) RSV (PCR) Not Detected (Not Detectd) SARS-CoV-2 (PCR) Not Detected (Not Detectd) 05/11/23 05/11/23 05/11/23 Range/Units 13:26 13:26 15:18 WBC (3.8-10.6) k/uL RBC (4.30-5.90) m/uL Hgb (13.0-17.5) gm/dL Hct (39.0-53.0) % MCV (80.0-100.0) fL MCH (25.0-35.0) pg MCHC (31.0-37.0) g/dL RDW (11.5-15.5) % Plt Count (150-450) k/uL MPV Neutrophils % % Lymphocytes % % Monocytes % % Eosinophils % % Basophils % % Neutrophils # (1.3-7.7) k/uL Lymphocytes # (1.0-4.8) k/uL Monocytes # (0-1.0) k/uL Eosinophils # (0-0.7) k/uL Basophils # (0-0.2) k/uL PT (10.0-12.5) sec INR (<1.2) APTT (22.0-30.0) sec Sample Site ABG pH (7.35-7.45) ABG pCO2 (35-45) mmHg ABG pO2 (83-108) mmHg ABG HCO3 (21-25) mmol/L ABG Total CO2 (19-24) mmol/L ABG O2 Saturation (94-97) % ABG Base Excess mmol/L Emmanuel Test FiO2 % Sodium 142 (137-145) mmol/L Potassium 5.2 H (3.5-5.1) mmol/L Chloride 96 L (98-107) mmol/L Carbon Dioxide 20 L (22-30) mmol/L Anion Gap 26 mmol/L BUN 39 H (9-20) mg/dL Creatinine 1.03 (0.66-1.25) mg/dL Est GFR (CKD-EPI)AfAm 87 (>60 ml/min/1.73 sqM) Est GFR (CKD-EPI)NonAf 75 (>60 ml/min/1.73 sqM) Glucose 836 H* (74-99) mg/dL POC Glucose (mg/dL) (70-110) mg/dL POC Glu Supervisor Hardboard ID Lactic Ac Sepsis Rflx Plasma Lactic Acid Scout (0.7-2.0) mmol/L Calcium 10.8 H (8.4-10.2) mg/dL Phosphorus (2.5-4.5) mg/dL Total Bilirubin 0.8 (0.2-1.3) mg/dL AST 17 (17-59) U/L ALT 21 (4-49) U/L Alkaline Phosphatase 182 H (38-126) U/L Troponin I <0.012 (0.000-0.034) ng/mL NT-Pro-B Natriuret Pep 388 pg/mL Total Protein 7.6 (6.3-8.2) g/dL Albumin 4.7 (3.5-5.0) g/dL Urine Color Colorless Urine Appearance Clear (Clear) Urine pH 5.0 (5.0-8.0) Ur Specific Flinton 1.034 (1.001-1.035) Urine Protein Negative (Negative) Urine Glucose (UA) 4+ H (Negative) Urine Ketones 2+ H (Negative) Urine Blood Negative (Negative) Urine Nitrite Negative (Negative) Urine Bilirubin Negative (Negative) Urine Urobilinogen <2.0 (<2.0) mg/dL Ur Leukocyte Esterase Negative (Negative) Influenza Type A (PCR) (Not Detectd) Influenza Type B (PCR) (Not Detectd) RSV (PCR) (Not Detectd) SARS-CoV-2 (PCR) (Not Detectd) 05/11/23 05/11/23 05/11/23 Range/Units 15:49 16:15 17:00 WBC (3.8-10.6) k/uL RBC (4.30-5.90) m/uL Hgb (13.0-17.5) gm/dL Hct (39.0-53.0) % MCV (80.0-100.0) fL MCH (25.0-35.0) pg MCHC (31.0-37.0) g/dL RDW (11.5-15.5) % Plt Count (150-450) k/uL MPV Neutrophils % % Lymphocytes % % Monocytes % % Eosinophils % % Basophils % % Neutrophils # (1.3-7.7) k/uL Lymphocytes # (1.0-4.8) k/uL Monocytes # (0-1.0) k/uL Eosinophils # (0-0.7) k/uL Basophils # (0-0.2) k/uL PT (10.0-12.5) sec INR (<1.2) APTT (22.0-30.0) sec Sample Site ABG pH (7.35-7.45) ABG pCO2 (35-45) mmHg ABG pO2 (83-108) mmHg ABG HCO3 (21-25) mmol/L ABG Total CO2 (19-24) mmol/L ABG O2 Saturation (94-97) % ABG Base Excess mmol/L Emmanuel Test FiO2 % Sodium (137-145) mmol/L Potassium (3.5-5.1) mmol/L Chloride (98-107) mmol/L Carbon Dioxide (22-30) mmol/L Anion Gap mmol/L BUN (9-20) mg/dL Creatinine (0.66-1.25) mg/dL Est GFR (CKD-EPI)AfAm (>60 ml/min/1.73 sqM) Est GFR (CKD-EPI)NonAf (>60 ml/min/1.73 sqM) Glucose (74-99) mg/dL POC Glucose (mg/dL) 579 H (70-110) mg/dL POC Glu Supervisor Hardboard ID Lactic Ac Sepsis Rflx Y Plasma Lactic Acid Scout 2.4 H* (0.7-2.0) mmol/L Calcium (8.4-10.2) mg/dL Phosphorus (2.5-4.5) mg/dL Total Bilirubin (0.2-1.3) mg/dL AST (17-59) U/L ALT (4-49) U/L Alkaline Phosphatase (38-126) U/L Troponin I (0.000-0.034) ng/mL NT-Pro-B Natriuret Pep pg/mL Total Protein (6.3-8.2) g/dL Albumin (3.5-5.0) g/dL Urine Color Urine Appearance (Clear) Urine pH (5.0-8.0) Ur Specific Flinton (1.001-1.035) Urine Protein (Negative) Urine Glucose (UA) (Negative) Urine Ketones (Negative) Urine Blood (Negative) Urine Nitrite (Negative) Urine Bilirubin (Negative) Urine Urobilinogen (<2.0) mg/dL Ur Leukocyte Esterase (Negative) Influenza Type A (PCR) (Not Detectd) Influenza Type B (PCR) (Not Detectd) RSV (PCR) (Not Detectd) SARS-CoV-2 (PCR) (Not Detectd) 05/11/23 05/11/23 05/11/23 Range/Units 17:13 17:22 17:49 WBC (3.8-10.6) k/uL RBC (4.30-5.90) m/uL Hgb (13.0-17.5) gm/dL Hct (39.0-53.0) % MCV (80.0-100.0) fL MCH (25.0-35.0) pg MCHC (31.0-37.0) g/dL RDW (11.5-15.5) % Plt Count (150-450) k/uL MPV Neutrophils % % Lymphocytes % % Monocytes % % Eosinophils % % Basophils % % Neutrophils # (1.3-7.7) k/uL Lymphocytes # (1.0-4.8) k/uL Monocytes # (0-1.0) k/uL Eosinophils # (0-0.7) k/uL Basophils # (0-0.2) k/uL PT (10.0-12.5) sec INR (<1.2) APTT (22.0-30.0) sec Sample Site Left Radial ABG pH 7.40 (7.35-7.45) ABG pCO2 42 (35-45) mmHg ABG pO2 54 L* (83-108) mmHg ABG HCO3 26 H (21-25) mmol/L ABG Total CO2 27 H (19-24) mmol/L ABG O2 Saturation 88.7 L (94-97) % ABG Base Excess 1.0 mmol/L Emmanuel Test Yes FiO2 21 % Sodium (137-145) mmol/L Potassium (3.5-5.1) mmol/L Chloride (98-107) mmol/L Carbon Dioxide (22-30) mmol/L Anion Gap mmol/L BUN (9-20) mg/dL Creatinine (0.66-1.25) mg/dL Est GFR (CKD-EPI)AfAm (>60 ml/min/1.73 sqM) Est GFR (CKD-EPI)NonAf (>60 ml/min/1.73 sqM) Glucose (74-99) mg/dL POC Glucose (mg/dL) 463 H (70-110) mg/dL POC Glu Supervisor Hardboard ID Lactic Ac Sepsis Rflx Plasma Lactic Acid Scout (0.7-2.0) mmol/L Calcium (8.4-10.2) mg/dL Phosphorus 2.3 L (2.5-4.5) mg/dL Total Bilirubin (0.2-1.3) mg/dL AST (17-59) U/L ALT (4-49) U/L Alkaline Phosphatase (38-126) U/L Troponin I (0.000-0.034) ng/mL NT-Pro-B Natriuret Pep pg/mL Total Protein (6.3-8.2) g/dL Albumin (3.5-5.0) g/dL Urine Color Urine Appearance (Clear) Urine pH (5.0-8.0) Ur Specific Flinton (1.001-1.035) Urine Protein (Negative) Urine Glucose (UA) (Negative) Urine Ketones (Negative) Urine Blood (Negative) Urine Nitrite (Negative) Urine Bilirubin (Negative) Urine Urobilinogen (<2.0) mg/dL Ur Leukocyte Esterase (Negative) Influenza Type A (PCR) (Not Detectd) Influenza Type B (PCR) (Not Detectd) RSV (PCR) (Not Detectd) SARS-CoV-2 (PCR) (Not Detectd) 05/11/23 05/11/23 Range/Units 17:49 19:05 WBC (3.8-10.6) k/uL RBC (4.30-5.90) m/uL Hgb (13.0-17.5) gm/dL Hct (39.0-53.0) % MCV (80.0-100.0) fL MCH (25.0-35.0) pg MCHC (31.0-37.0) g/dL RDW (11.5-15.5) % Plt Count (150-450) k/uL MPV Neutrophils % % Lymphocytes % % Monocytes % % Eosinophils % % Basophils % % Neutrophils # (1.3-7.7) k/uL Lymphocytes # (1.0-4.8) k/uL Monocytes # (0-1.0) k/uL Eosinophils # (0-0.7) k/uL Basophils # (0-0.2) k/uL PT (10.0-12.5) sec INR (<1.2) APTT (22.0-30.0) sec Sample Site ABG pH (7.35-7.45) ABG pCO2 (35-45) mmHg ABG pO2 (83-108) mmHg ABG HCO3 (21-25) mmol/L ABG Total CO2 (19-24) mmol/L ABG O2 Saturation (94-97) % ABG Base Excess mmol/L Emmanuel Test FiO2 % Sodium 149 H (137-145) mmol/L Potassium 4.0 (3.5-5.1) mmol/L Chloride 106 (98-107) mmol/L Carbon Dioxide 26 (22-30) mmol/L Anion Gap 17 mmol/L BUN 37 H (9-20) mg/dL Creatinine 0.99 (0.66-1.25) mg/dL Est GFR (CKD-EPI)AfAm >90 (>60 ml/min/1.73 sqM) Est GFR (CKD-EPI)NonAf 78 (>60 ml/min/1.73 sqM) Glucose 495 H (74-99) mg/dL POC Glucose (mg/dL) 470 H (70-110) mg/dL POC Glu Supervisor Hardboard ID Lactic Ac Sepsis Rflx Plasma Lactic Acid Scout (0.7-2.0) mmol/L Calcium (8.4-10.2) mg/dL Phosphorus (2.5-4.5) mg/dL Total Bilirubin (0.2-1.3) mg/dL AST (17-59) U/L ALT (4-49) U/L Alkaline Phosphatase (38-126) U/L Troponin I (0.000-0.034) ng/mL NT-Pro-B Natriuret Pep pg/mL Total Protein (6.3-8.2) g/dL Albumin (3.5-5.0) g/dL Urine Color Urine Appearance (Clear) Urine pH (5.0-8.0) Ur Specific Flinton (1.001-1.035) Urine Protein (Negative) Urine Glucose (UA) (Negative) Urine Ketones (Negative) Urine Blood (Negative) Urine Nitrite (Negative) Urine Bilirubin (Negative) Urine Urobilinogen (<2.0) mg/dL Ur Leukocyte Esterase (Negative) Influenza Type A (PCR) (Not Detectd) Influenza Type B (PCR) (Not Detectd) RSV (PCR) (Not Detectd) SARS-CoV-2 (PCR) (Not Detectd) - EKG Data -: EKG Interpreted by Me - Radiology Data Radiology results: report reviewed, image reviewed Disposition Clinical Impression: DKA (diabetic ketoacidosis), Weakness, Falls Disposition: ADMITTED IP TO THIS [facility] Condition: Fair Referrals: Naga Jaimes MD [Primary Care Provider] - 1-2 days Decision to Admit Reason: Admit from EC Decision Date: 05/11/23 Decision Time: 18:43
--- NOTE | 2023-05-11 12:07 | CT ---
EXAMINATION TYPE: CT brain wo con DATE OF EXAM: 05/11/2023 HISTORY: h/o TIA, multiple falls in the last 3 days, weakness, dizziness CT DLP: 1126.4 mGycm. Automated Exposure Control for Dose Reduction was Utilized. TECHNIQUE: CT scan of the head is performed without contrast. COMPARISON: Prior CT brain April 14, 2023. FINDINGS: There is no acute intracranial hemorrhage or midline shift identified. There is mild-to-m oderate diffuse ventricular and sulcal prominence redemonstrated. There is moderate low-attenuation in the periventricular white matter redemonstrated. Old bilateral infarcts superiorly redemonstrated greatest in size over the left frontal lobe . Nasal septum remains deviated to right of midline. Ther e is moderate mucosal thickening with patchy fluid in the right maxillary sinus more prominent from p rior. Remainder paranasal sinuses are clear. Globes are intact bilaterally. IMPRESSION: No acute intracranial hemorrhage or midline shift. There is fairly moderate diffuse age -related cerebral atrophy and chronic small vessel ischemic change redemonstrated. Old superior infa rcts bilaterally again seen. Increasing right maxillary sinus disease noted otherwise no significant change from most recent prior CT.
--- NOTE | 2023-05-11 12:27 | XR ---
EXAMINATION TYPE: XR chest 2V DATE OF EXAM: 05/11/2023 COMPARISON: Chest x-ray May 19, 2022 HISTORY: Dizziness, fall TECHNIQUE: Frontal and lateral views of the chest are obtained. FINDINGS: There is no suspicious new focal air space opacity, pleural effusion, or pneumothorax seen . The cardiac silhouette size is stable and within normal limits. The osseous structures are intac t. IMPRESSION: No acute cardiopulmonary process.
[2023-05-11 13:43] LABS: Basophils % (A) 0 %; Eosinophils # (A) 0.1 k/uL (0-0.7); Eosinophils % (A) 0 %; HCT 49.8 % (39.0-53.0); HGB 16.1 gm/dL (13.0-17.5); Lymphocytes # (A) 0.9 k/uL (1.0-4.8); Lymphocytes % (A) 4 %; MCH 32.5 pg (25.0-35.0); MCHC 32.4 g/dL (31.0-37.0); MCV 100.2 fL (80.0-100.0); Mean Platelet Volume 8.8; Monocytes # (A) 0.7 k/uL (0-1.0); Monocytes % (A) 4 %; Neutrophils # (A) 17.8 k/uL (1.3-7.7); Neutrophils % (A) 91 %; Platelet Count 357 k/uL (150-450); RBC 4.97 m/uL (4.30-5.90); RDW 13.1 % (11.5-15.5); WBC 19.6 k/uL (3.8-10.6)
[2023-05-11 13:52] LABS: INR 0.9 (<1.2); Prothrombin Time 10.2 sec (10.0-12.5)
[2023-05-11 14:08] LABS: ALT 21 U/L (4-49); AST 17 U/L (17-59); African American GFR (CKD) 87 (>60 ml/min/1.73 sqM); Albumin 4.7 g/dL (3.5-5.0); Alkaline Phosphatase 182 U/L (38-126); Anion Gap 26 mmol/L; Blood Urea Nitrogen 39 mg/dL (9-20); Calcium 10.8 mg/dL (8.4-10.2); Carbon Dioxide 20 mmol/L (22-30); Chloride 96 mmol/L (98-107); Non-African American GFR(CKD) 75 (>60 ml/min/1.73 sqM); Potassium 5.2 mmol/L (3.5-5.1); Sodium 142 mmol/L (137-145); Total Bilirubin 0.8 mg/dL (0.2-1.3); Total Protein 7.6 g/dL (6.3-8.2)
[2023-05-11 14:15] LABS: NT-Pro-B-Type Natriuretic Pept 388 pg/mL
[2023-05-11 14:17] LABS: Glucose 836 mg/dL (74-99)
[2023-05-11] MEDS ORDERED: SODIUM CHLORIDE 0.9% 1,000 ML IV STA ×2 (14:27→17:46)
[2023-05-11] MEDS ORDERED: D5-0.45% NACL WITH KCL 20MEQ/L 1,000 ML IV SCH (14:45)
[2023-05-11] MEDS: SODIUM CHLORIDE 0.9% 1,000 ML IV SCH ×2 (15:04→21:37)
[2023-05-11] MEDS: INSULIN REGULAR 100 UNIT in SODIUM CHLORIDE 0.9% 100 ML IV SCH ×2 (15:05→15:12)
[2023-05-11 15:38] LABS: Appearance,Urine Clear (Clear); Bilirubin,Urine Negative (Negative); Blood,Urine Negative (Negative); Color,Urine Colorless; Glucose,Urine (UA) 4+ (Negative); Leukocyte Esterase,Urine Negative (Negative); Nitrite,Urine Negative (Negative); Protein,Urine Negative (Negative); Specific Gravity,Urine 1.034 (1.001-1.035); Urobilinogen,Urine <2.0 mg/dL (<2.0)
[2023-05-11 16:17] LABS: Glucose,Whole Blood 579 mg/dL (70-110)
[2023-05-11 17:00] LABS: Ketones,Urine 2+ (Negative)
[2023-05-11 17:16] LABS: ABG HCO3 26 mmol/L (21-25); ABG Oxygen Saturation 88.7 % (94-97); ABG PCO2 42 mmHg (35-45); ABG TCO2 27 mmol/L (19-24); Allen Test Performed? Yes
[2023-05-11 17:23] LABS: ABG PO2 54 mmHg (83-108)
[2023-05-11 17:23] LABS: Glucose,Whole Blood 463 mg/dL (70-110)
[2023-05-11] MEDS ORDERED: CEFEPIME 1 GM in SODIUM CHLORIDE 0.9% 50 ML IVPB ONE (18:30)
[2023-05-11 19:06] LABS: Glucose,Whole Blood 470 mg/dL (70-110)
[2023-05-11 19:06] LABS: African American GFR (CKD) >90 (>60 ml/min/1.73 sqM); Anion Gap 17 mmol/L; Blood Urea Nitrogen 37 mg/dL (9-20); Carbon Dioxide 26 mmol/L (22-30); Chloride 106 mmol/L (98-107); Glucose 495 mg/dL (74-99); Non-African American GFR(CKD) 78 (>60 ml/min/1.73 sqM); Sodium 149 mmol/L (137-145)
[2023-05-11 20:11] LABS: Glucose,Whole Blood 353 mg/dL (70-110)
[2023-05-11] MEDS ORDERED: ONDANSETRON 4 MG/2 ML VIAL IVP PRN (20:32)
[2023-05-11 20:39] LABS: African American GFR (CKD) >90 (>60 ml/min/1.73 sqM); Anion Gap 12 mmol/L; Blood Urea Nitrogen 36 mg/dL (9-20); Carbon Dioxide 31 mmol/L (22-30); Chloride 109 mmol/L (98-107); Glucose 362 mg/dL (74-99); Non-African American GFR(CKD) 87 (>60 ml/min/1.73 sqM); Phosphorus 2.3 mg/dL (2.5-4.5); Potassium 3.9 mmol/L (3.5-5.1); Sodium 152 mmol/L (137-145)
--- NOTE | 2023-05-11 20:46 | CT ---
EXAMINATION TYPE: CT angio chest CT DLP: 255.3 mGycm, Automated exposure control for dose reduction was used. DATE OF EXAM: 05/11/2023 8:10 PM COMPARISON: 04/14/2023, chest radiograph same day. CLINICAL INDICATION:Male, 68 years old with history of r/o PE; R/O PE. TECHNIQUE/CONTRAST: CTA scan of the thorax is performed with IV Contrast, patient injected with 100 ml mL of Isovue 300, MIP images are created and reviewed these are created on a separate workstation.. FINDINGS: Pulmonary Artery: There is no evidence for a filling defect within the pulmonary vasculature to sugge st acute pulmonary embolism. The pulmonary artery is of normal size. Lungs/Pleura: No evidence of focal consolidation, pleural effusion or pneumothorax. Airway: Large airways are patent. Heart: Heart is within normal limits for size. Vasculature: No evidence of aortic aneurysm. Mediastinum: No gross evidence of adenopathy. Musculoskeletal: Mild degenerative disc disease changes are present throughout the thoracolumbar spin e. Soft Tissues: Unremarkable. Lower neck: No significant findings. Upper Abdomen: No significant findings. IMPRESSION: No evidence of pulmonary embolism.
[2023-05-11 21:21] LABS: Glucose,Whole Blood 287 mg/dL (70-110)
[2023-05-11] MEDS: D5-0.45% NACL WITH KCL 20MEQ/L 1,000 ML IV SCH (21:35)
[2023-05-11] MEDS: ATORVASTATIN 40 MG TAB PO SCH (21:54)
[2023-05-11 22:32] LABS: Glucose,Whole Blood 243 mg/dL (70-110)
[2023-05-11 23:27] LABS: Glucose,Whole Blood 314 mg/dL (70-110)
[2023-05-12 00:17] LABS: Glucose,Whole Blood 219 mg/dL (70-110)
[2023-05-12 00:57] LABS: Potassium 3.9 mmol/L (3.5-5.1)
[2023-05-12 01:14] LABS: Glucose,Whole Blood 180 mg/dL (70-110)
[2023-05-12 01:59] LABS: Glucose,Whole Blood 187 mg/dL (70-110)
[2023-05-12] MEDS: INSULIN REGULAR 100 UNIT in SODIUM CHLORIDE 0.9% 100 ML IV SCH (02:27)
[2023-05-12 02:56] LABS: Glucose,Whole Blood 195 mg/dL (70-110)
[2023-05-12] MEDS: SODIUM CHLORIDE 0.9% 1,000 ML IV SCH ×2 (03:14→06:02)
[2023-05-12 04:16] LABS: Glucose,Whole Blood 95 mg/dL (70-110)
[2023-05-12] MEDS: D5-0.45% NACL WITH KCL 20MEQ/L 1,000 ML IV SCH ×2 (04:33→16:50)
[2023-05-12 05:05] LABS: Glucose,Whole Blood 99 mg/dL (70-110)
[2023-05-12 05:47] LABS: Glucose,Whole Blood 139 mg/dL (70-110)
[2023-05-12 06:53] LABS: Glucose,Whole Blood 182 mg/dL (70-110)
[2023-05-12 07:56] LABS: Glucose,Whole Blood 164 mg/dL (70-110)
[2023-05-12] MEDS: ENOXAPARIN 40 MG/0.4 ML SYRINGE SQ SCH (07:56)
[2023-05-12] MEDS: ASPIRIN 81 MG PO SCH (07:57)
[2023-05-12] MEDS: PANTOPRAZOLE 40 MG TABLET PO SCH (07:57)
[2023-05-12 08:06] LABS: Basophils % (A) 0 %; Eosinophils # (A) 0.1 k/uL (0-0.7); Eosinophils % (A) 0 %; HCT 42.4 % (39.0-53.0); HGB 14.4 gm/dL (13.0-17.5); Lymphocytes # (A) 1.4 k/uL (1.0-4.8); Lymphocytes % (A) 8 %; MCH 32.4 pg (25.0-35.0); MCV 95.4 fL (80.0-100.0); Mean Platelet Volume 8.5; Monocytes # (A) 0.9 k/uL (0-1.0); Monocytes % (A) 5 %; Neutrophils # (A) 14.2 k/uL (1.3-7.7); Neutrophils % (A) 85 %; Platelet Count 321 k/uL (150-450); RBC 4.44 m/uL (4.30-5.90); RDW 13.4 % (11.5-15.5); WBC 16.7 k/uL (3.8-10.6)
[2023-05-12 08:17] LABS: Potassium 4.1 mmol/L (3.5-5.1)
[2023-05-12 08:19] LABS: ALT 15 U/L (4-49); AST 16 U/L (17-59); African American GFR (CKD) >90 (>60 ml/min/1.73 sqM); Albumin 3.5 g/dL (3.5-5.0); Alkaline Phosphatase 116 U/L (38-126); Anion Gap 8 mmol/L; Blood Urea Nitrogen 24 mg/dL (9-20); Calcium 9.5 mg/dL (8.4-10.2); Carbon Dioxide 30 mmol/L (22-30); Chloride 112 mmol/L (98-107); Glucose 169 mg/dL (74-99); Non-African American GFR(CKD) >90 (>60 ml/min/1.73 sqM); Potassium 4.1 mmol/L (3.5-5.1); Sodium 150 mmol/L (137-145); Total Bilirubin 0.4 mg/dL (0.2-1.3); Total Protein 6.3 g/dL (6.3-8.2)
[2023-05-12 09:20] LABS: Glucose,Whole Blood 151 mg/dL (70-110)
[2023-05-12] MEDS: INSULIN DETEMIR (LEVEMIR) 100 UNIT/ML SYR SQ SCH (09:53)
[2023-05-12 11:10] LABS: Glucose,Whole Blood 132 mg/dL (70-110)
[2023-05-12] MEDS: INSULIN ASPART (NovoLOG) 100 UNIT/ML VIAL SQ SCH ×5 (11:26→21:00)
[2023-05-12 15:57] VITALS: RESP 16
[2023-05-12 16:47] LABS: Glucose,Whole Blood 196 mg/dL (70-110)
[2023-05-12 20:50] LABS: Glucose,Whole Blood 197 mg/dL (70-110)
[2023-05-12] MEDS: ATORVASTATIN 40 MG TAB PO SCH (21:00)
[2023-05-13 05:54] LABS: Glucose,Whole Blood 198 mg/dL (70-110)
[2023-05-13] MEDS: D5-0.45% NACL WITH KCL 20MEQ/L 1,000 ML IV SCH (06:36)
[2023-05-13] MEDS: INSULIN ASPART (NovoLOG) 100 UNIT/ML VIAL SQ SCH ×7 (06:37→20:50)
[2023-05-13] MEDS: PANTOPRAZOLE 40 MG TABLET PO SCH (06:38)
[2023-05-13] MEDS: INSULIN DETEMIR (LEVEMIR) 100 UNIT/ML SYR SQ SCH (07:55)
[2023-05-13 08:06] LABS: ALT 14 U/L (4-49); AST 19 U/L (17-59); African American GFR (CKD) >90 (>60 ml/min/1.73 sqM); Albumin 3.3 g/dL (3.5-5.0); Albumin/Globulin Ratio 1.2; Alkaline Phosphatase 112 U/L (38-126); Anion Gap 9 mmol/L; Blood Urea Nitrogen 16 mg/dL (9-20); Carbon Dioxide 26 mmol/L (22-30); Chloride 107 mmol/L (98-107); Globulin 2.8 g/dL; Glucose 202 mg/dL (74-99); Non-African American GFR(CKD) >90 (>60 ml/min/1.73 sqM); Potassium 4.4 mmol/L (3.5-5.1); Sodium 142 mmol/L (137-145); Total Bilirubin 0.8 mg/dL (0.2-1.3); Total Protein 6.1 g/dL (6.3-8.2)
[2023-05-13 08:11] LABS: Basophils % (A) 0 %; Eosinophils % (A) 0 %; HCT 43.3 % (39.0-53.0); HGB 14.1 gm/dL (13.0-17.5); Lymphocytes # (A) 1.5 k/uL (1.0-4.8); Lymphocytes % (A) 15 %; MCH 32.5 pg (25.0-35.0); MCHC 32.7 g/dL (31.0-37.0); MCV 99.5 fL (80.0-100.0); Mean Platelet Volume 8.3; Monocytes # (A) 0.5 k/uL (0-1.0); Monocytes % (A) 5 %; Neutrophils # (A) 7.5 k/uL (1.3-7.7); Neutrophils % (A) 78 %; Platelet Count 237 k/uL (150-450); RBC 4.35 m/uL (4.30-5.90); RDW 12.8 % (11.5-15.5); WBC 9.7 k/uL (3.8-10.6)
[2023-05-13] MEDS: ASPIRIN 81 MG PO SCH (08:59)
[2023-05-13] MEDS: ENOXAPARIN 40 MG/0.4 ML SYRINGE SQ SCH (08:59)
[2023-05-13 11:55] LABS: Glucose,Whole Blood 183 mg/dL (70-110)
--- NOTE | 2023-05-13 13:16 | P.HPIM ---
History of Present Illness H&P Date: 05/11/23 Chief Complaint: DKA HISTORY OF PRESENT ILLNESS: This is a 68-year-old male with a previous medical history significant for hypertension and hypertensive vascular disease, hyperlipidemia, diabetes mellitus type 2, cervical vascular accident distributional of [place] artery pressure weakness, patient presented to the emergency department at [facility] with increased dizziness and recurrent falls,and increased abdominal pain, nausea and vomiting his blood glucose was reading high, he was found to have a blood glucose level of greater than 800, patient was positive for ketones blood in the urine, was diagnosed with diabetic ketoacidosis, he was started on insulin drip as well as IV fluid resuscitation, he was admitted to the hospital for further evaluation and treatment, patient initially had blood gases that showed a PaO2 of 52, therefore the patient went for CT angiography of the chest that was negative for pulmonary embolism, patient was supposed to be started on Jardiance 25 minute gram orally once every day as well as Lipitor 40 mg once every day, and the patient never started dose, I he was supposed to started on low-dose of Ozempic 0.25 mg subcutaneously once every week, which were never done., patient also did ave CT of the brain that was negative for acute but old CVA, 12 Lead EKG showed RBBB with sinus tachycardia, ABGs reviewed and showed mild hypoxemia with a PaO2 52 REVIEW OF SYSTEMS: Constitutional: No documented fever, no chills, no night sweats. No weight change. No weakness, fatigue or lethargy. No daytime sleepiness. HEENT: No headache. No blurred vision or double vision, no loss of vision. No loss of Hearing, no ringing in the ears, no dizziness. No nasal drainage or congestion. No epistaxis. No sore throat. Lungs: mild shortness of breath, no cough, no sputum production. No wheezing. Reports dyspnea with activity. Cardiovascular: No chest pain, no lower extremity edema. No palpitations. No paroxysmal nocturnal dyspnea. No orthopnea. No lightheadedness or dizziness. No syncopal episodes. Abdominal: Reports abdominal pain. positive for nausea, vomiting. No diarrhea. No constipation. No bloody or tarry stools reports loss of appetite. Genitourinary: No dysuria, increased frequency, urgency. No urinary retention. Musculoskeletal: No myalgias. right sided upper and lower extremities muscle weakness, positive for gait dysfunction, positive for frequent falls. No back pain. No neck pain. Integumentary: No wounds, no lesions. No rash or pruritus. No unusual bruising. No change in hair or nails. Neurologic: No aphasia. No facial droop. No change in mentation. No head injury. No headache. No paralysis. No paresthesia. Psychiatric: No depression. No anxiety. No mood swings. Endocrine: No abnormal blood sugars. No weight change. PAST MEDICAL HISTORY: Mixed hyperlipidemia. Diabetes mellitus type 2. With possible conversion to type I. Essential hypertension. 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 PAST SURGICAL HISTORY: surgical history documented. SOCIAL HISTORY: patient smokes about a pack every day since he was 17-year-old, he denies any alcohol ingestion to monitor abuse, tobacco use. FAMILY HISTORY: father at age 65 from CVA with history of diabetes and COPD, mother age 65 from alcoholism and diabetes patient has one brother 63-year-old COPD alcoholism and lung cancer 3 sisters one with diabetes and diabetic neuropathy PAD and diabetes and had a hernia along with back surgery the other one is okay. PHYSICAL EXAMINATION: General: 68-year-old male in no apparent distress. HEENT: Head is atraumatic, normocephalic, pupils were equal round reactive to light and recommendation, extraocular muscle movement were intact, sclera nonicteric, conjunctivae were pale, mucous membranes of the mouth are somewhat dry. Neck: Supple, no JVP, normal carotid upstroke bilaterally, no lymphadenopathy. Chest: Decreased breath sounds at the bases, few rhonchi, no expiratory wheezes, no chest wall tenderness, no intercostal retractions. Heart: First heart sound is normal, second heart sound is normal there is systolic ejection murmur 2/6 located at the left sternal border. Abdomen: Soft, nontender, nondistended, positive bowel sounds. Extremities: There is no edema no calf tenderness DP +2 bilaterally. Neurologic examination: Patient is awake alert and oriented X 3, cranial nerves II-12 appear grossly intact, positive for right-sided weakness. ASSESSMENT AND PLAN: 1. Diabetic ketoacidosis. In a patient with uncontrolled diabetes mellitus type 2, his last hemoglobin A1c was 9.7%, we'll start the patient on IV fluid resuscitation, Start the patient on insulin drip per protocol, and we will transition the patient into insulin because of possibility of conversion to type 1 diabetes mellitus, I will check glutamic acid decarboxylase, as well as C- peptide level, possible insulin antibodies, discontinue metformin, discontinue glipizide, transition from insulin drip into Levemir and Humalog plus monitor the patient very closely. Monitor the patient was transferred closely including magnesium and phosphorus follow-up with the patient. 2. Mixed hyperlipidemia. Continue patient on atorvastatin 40 mg daily, mitral dependence, keep LDL 55-70. 3. Essential hypertension. Monitor the patient very closely, start the patient on losartan 25 mg orally once every day. 4. 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 Patient did have a CT of the brain did not show evidence of acute of normalities which old stroke, continue aspirin 81 mg once every day, atorvastatin 40 mg once every day for secondary stroke prevention. 5. DVT prophylaxis. Lovenox 40 mg subcutaneously every 24 hours. 6. GI prophylaxis. Continue patient on Protonix 40 mg every day. 7. Admit to inpatient. Estimated length of stay 2 midnights. 8. Full code. Past Medical History Past Medical History: COPD, CVA/TIA, Diabetes Mellitus, GERD/Reflux, Hyperlipidemia Additional Past Medical History / Comment(s): 2017 CVA with speach changes/R arm and hand weakness, aspiration pneumonia, slight difficulty swallowing/coughs-no special diet and can swallow pills History of Any Multi-Drug Resistant Organisms: None Reported Past Surgical History: No Surgical Hx Reported Additional Past Surgical History / Comment(s): Colonoscopy Past Anesthesia/Blood Transfusion Reactions: No Reported Reaction Past Psychological History: No Psychological Hx Reported Additional Psychological History / Comment(s): Lives with his significant other. 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 Denies a history of alcohol use or recreational drug use. No experience. No international travel. Pet dogs in the home they're not new. Father from a stroke in his 50s he was a smoker. He has no children. Smoking Status: Current every day smoker Past Alcohol Use History: None Reported Additional Past Alcohol Use History / Comment(s): Pt started smoking in 1970 and is a 2 ppd smoker Past Drug Use History: None Reported - Past Family History Mother Family Medical History: Diabetes Mellitus Additional Family Medical History / Comment(s): Father Family Medical History: CVA/TIA Additional Family Medical History / Comment(s): from CVA at age 52yrs. Medications and Allergies Home Medications Medication Instructions Recorded Confirmed Type Aspirin 81 mg PO DAILY #30 tab 05/20/22 05/11/23 Rx Atorvastatin [Lipitor] 40 mg PO HS 05/11/23 05/11/23 History metFORMIN HCL [Glucophage] 500 mg PO TID 05/11/23 05/11/23 History Allergies Allergy/AdvReac Type Severity Reaction Status Date / Time No Known Allergies Allergy Verified 05/11/23 13:31 Physical Exam Vitals: Vital Signs Temp Pulse Resp BP Pulse Ox 05/11/23 17:23 121 H 18 123/57 95 05/11/23 15:54 121 H 16 135/65 96 05/11/23 13:28 120 H 16 151/63 95 05/11/23 11:28 98.3 F 123 H 18 121/55 94 L Intake and Output 05/11/23 05/11/23 05/11/23 06:59 14:59 22:59 Intake Total 29.498 Balance 29.498 Intake: Intake, IV Titration 29.498 Amount Insulin Regular 100 unit 29.498 In Sodium Chloride 0.9% 100 ml @ 0.1 UNITS/KG/HR 6.414 mls/hr IV .[id number] [facility] Rx#:[id number] Other: Weight 63.503 kg Results CBC & Chem 7: 05/13/23 07:15 05/13/23 07:15 Labs: Abnormal Lab Results - Last 24 Hours (Table) 05/11/23 05/11/23 05/11/23 Range/Units 13:26 13:26 15:18 WBC 19.6 H (3.8-10.6) k/uL MCV 100.2 H (80.0-100.0) fL Neutrophils # 17.8 H (1.3-7.7) k/uL Lymphocytes # 0.9 L (1.0-4.8) k/uL ABG pO2 (83-108) mmHg ABG HCO3 (21-25) mmol/L ABG Total CO2 (19-24) mmol/L ABG O2 Saturation (94-97) % Sodium (137-145) mmol/L Potassium 5.2 H (3.5-5.1) mmol/L Chloride 96 L (98-107) mmol/L Carbon Dioxide 20 L (22-30) mmol/L BUN 39 H (9-20) mg/dL Glucose 836 H* (74-99) mg/dL POC Glucose (mg/dL) (70-110) mg/dL Plasma Lactic Acid Scout (0.7-2.0) mmol/L Calcium 10.8 H (8.4-10.2) mg/dL Phosphorus (2.5-4.5) mg/dL Alkaline Phosphatase 182 H (38-126) U/L Urine Glucose (UA) 4+ H (Negative) Urine Ketones 2+ H (Negative) 05/11/23 05/11/23 05/11/23 Range/Units 15:49 16:15 17:13 WBC (3.8-10.6) k/uL MCV (80.0-100.0) fL Neutrophils # (1.3-7.7) k/uL Lymphocytes # (1.0-4.8) k/uL ABG pO2 54 L* (83-108) mmHg ABG HCO3 26 H (21-25) mmol/L ABG Total CO2 27 H (19-24) mmol/L ABG O2 Saturation 88.7 L (94-97) % Sodium (137-145) mmol/L Potassium (3.5-5.1) mmol/L Chloride (98-107) mmol/L Carbon Dioxide (22-30) mmol/L BUN (9-20) mg/dL Glucose (74-99) mg/dL POC Glucose (mg/dL) 579 H (70-110) mg/dL Plasma Lactic Acid Scout 2.4 H* (0.7-2.0) mmol/L Calcium (8.4-10.2) mg/dL Phosphorus (2.5-4.5) mg/dL Alkaline Phosphatase (38-126) U/L Urine Glucose (UA) (Negative) Urine Ketones (Negative) 05/11/23 05/11/23 05/11/23 Range/Units 17:22 17:49 17:49 WBC (3.8-10.6) k/uL MCV (80.0-100.0) fL Neutrophils # (1.3-7.7) k/uL Lymphocytes # (1.0-4.8) k/uL ABG pO2 (83-108) mmHg ABG HCO3 (21-25) mmol/L ABG Total CO2 (19-24) mmol/L ABG O2 Saturation (94-97) % Sodium 149 H (137-145) mmol/L Potassium (3.5-5.1) mmol/L Chloride (98-107) mmol/L Carbon Dioxide (22-30) mmol/L BUN 37 H (9-20) mg/dL Glucose 495 H (74-99) mg/dL POC Glucose (mg/dL) 463 H (70-110) mg/dL Plasma Lactic Acid Scout (0.7-2.0) mmol/L Calcium (8.4-10.2) mg/dL Phosphorus 2.3 L (2.5-4.5) mg/dL Alkaline Phosphatase (38-126) U/L Urine Glucose (UA) (Negative) Urine Ketones (Negative) 05/11/23 05/11/23 Range/Units 19:05 20:10 WBC (3.8-10.6) k/uL MCV (80.0-100.0) fL Neutrophils # (1.3-7.7) k/uL Lymphocytes # (1.0-4.8) k/uL ABG pO2 (83-108) mmHg ABG HCO3 (21-25) mmol/L ABG Total CO2 (19-24) mmol/L ABG O2 Saturation (94-97) % Sodium (137-145) mmol/L Potassium (3.5-5.1) mmol/L Chloride (98-107) mmol/L Carbon Dioxide (22-30) mmol/L BUN (9-20) mg/dL Glucose (74-99) mg/dL POC Glucose (mg/dL) 470 H 353 H (70-110) mg/dL Plasma Lactic Acid Scout (0.7-2.0) mmol/L Calcium (8.4-10.2) mg/dL Phosphorus (2.5-4.5) mg/dL Alkaline Phosphatase (38-126) U/L Urine Glucose (UA) (Negative) Urine Ketones (Negative)
--- NOTE | 2023-05-13 13:19 | P.PN ---
Subjective Progress Note Date: 05/12/23 HISTORY OF PRESENT ILLNESS: This is a 68-year-old male with a previous medical history significant for hypertension and hypertensive vascular disease, hyperlipidemia, diabetes mellitus type 2, cervical vascular accident distributional of [place] artery pressure weakness, patient presented to the emergency department at [facility] with increased dizziness and recurrent falls,and increased abdominal pain, nausea and vomiting his blood glucose was reading high, he was found to have a blood glucose level of greater than 800, patient was positive for ketones blood in the urine, was diagnosed with diabetic ketoacidosis, he was started on insulin drip as well as IV fluid resuscitation, he was admitted to the hospital for further evaluation and treatment, patient initially had blood gases that showed a PaO2 of 52, therefore the patient went for CT angiography of the chest that was negative for pulmonary embolism, patient was supposed to be started on Jardiance 25 minute gram orally once every day as well as Lipitor 40 mg once every day, and the patient never started dose, I he was supposed to started on low-dose of Ozempic 0.25 mg subcutaneously once every week, which were never done., patient also did ave CT of the brain that was negative for acute but old CVA, 12 Lead EKG showed RBBB with sinus tachycardia, ABGs reviewed and showed mild hypoxemia with a PaO2 52 1/5: Patient is still in the emergency department, he is laying down in bed in no apparent distress, he denies any chest pain, shortness breath, this time he was transitioned from insulin drip to Levemir 18 units at bedtime along with 4 units before each meal 3 times every day, discontinue metformin, discontinue glipizide, await the result of the JOHN antibodies as well as C-peptide level, I'll follow-up with the patient as an outpatient the next 1 or 2 days. [facility] for another 24 hours, if the patient is able to started his with verbal he can be discharged home tomorrow morning. REVIEW OF SYSTEMS: Constitutional: No documented fever, no chills, no night sweats. No weight change. No weakness, fatigue or lethargy. No daytime sleepiness. HEENT: No headache. No blurred vision or double vision, no loss of vision. No loss of Hearing, no ringing in the ears, no dizziness. No nasal drainage or congestion. No epistaxis. No sore throat. Lungs: mild shortness of breath, no cough, no sputum production. No wheezing. Reports dyspnea with activity. Cardiovascular: No chest pain, no lower extremity edema. No palpitations. No paroxysmal nocturnal dyspnea. No orthopnea. No lightheadedness or dizziness. No syncopal episodes. Abdominal: Reports abdominal pain. positive for nausea, vomiting. No diarrhea. No constipation. No bloody or tarry stools reports loss of appetite. Genitourinary: No dysuria, increased frequency, urgency. No urinary retention. Musculoskeletal: No myalgias. right sided upper and lower extremities muscle weakness, positive for gait dysfunction, positive for frequent falls. No back pain. No neck pain. Integumentary: No wounds, no lesions. No rash or pruritus. No unusual bruising. No change in hair or nails. Neurologic: No aphasia. No facial droop. No change in mentation. No head injury. No headache. No paralysis. No paresthesia. Psychiatric: No depression. No anxiety. No mood swings. Endocrine: No abnormal blood sugars. No weight change. PHYSICAL EXAMINATION: General: 68-year-old male in no apparent distress. HEENT: Head is atraumatic, normocephalic, pupils were equal round reactive to light and recommendation, extraocular muscle movement were intact, sclera nonicteric, conjunctivae were pale, mucous membranes of the mouth are somewhat dry. Neck: Supple, no JVP, normal carotid upstroke bilaterally, no lymphadenopathy. Chest: Decreased breath sounds at the bases, few rhonchi, no expiratory wheezes, no chest wall tenderness, no intercostal retractions. Heart: First heart sound is normal, second heart sound is normal there is systolic ejection murmur 2/6 located at the left sternal border. Abdomen: Soft, nontender, nondistended, positive bowel sounds. Extremities: There is no edema no calf tenderness DP +2 bilaterally. Neurologic examination: Patient is awake alert and oriented X 3, cranial nerves II-12 appear grossly intact, positive for right-sided weakness. ASSESSMENT AND PLAN: 1. Diabetic ketoacidosis. In a patient with uncontrolled diabetes mellitus type 2, his last hemoglobin A1c was 9.7%, patient was transitioned from insulin drip and to Levemir 18 units at bedtime along with the Humalog 4 units before each meal 3 times every day, discontinue metformin and glipizide for now, follow-up with patient as an outpatient. 2. Mixed hyperlipidemia. Continue patient on atorvastatin 40 mg daily, , keep LDL 55-70. 3. Essential hypertension. Monitor the patient very closely, start the patient on losartan 25 mg orally once every day. 4. 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 Patient did have a CT of the brain did not show evidence of acute of normalities which old stroke, continue aspirin 81 mg once every day, atorvastatin 40 mg once every day for secondary stroke prevention. 5. DVT prophylaxis. Lovenox 40 mg subcutaneously every 24 hours. 6. GI prophylaxis. Continue patient on Protonix 40 mg every day. 7. Increase activity. 8. Home tomorrow morning. Objective - Vital Signs Vital signs: Vital Signs Temp 98.0 F 05/13/23 08:00 Pulse 98 05/13/23 08:00 Resp 16 05/13/23 08:00 BP 137/77 05/13/23 08:00 Pulse Ox 96 05/13/23 08:00 FiO2 Intake & Output 05/12/23 05/13/23 05/13/23 18:59 06:59 18:59 Intake Total 29.14 Output Total 400 750 Balance -370.86 -750 Intake: Intake, IV Titration 29.14 Amount Insulin Regular 100 unit 29.14 In Sodium Chloride 0.9% 100 ml @ 0.1 UNITS/KG/HR 6.414 mls/hr IV .[id number] [facility] Rx#:[id number] Output: Urine 400 750 Other: Voiding Method Urinal Urinal Urinal # Voids 1 - Labs CBC & Chem 7: 05/13/23 07:15 05/13/23 07:15 Labs: Abnormal Lab Results - Last 24 Hours (Table) 05/12/23 05/12/23 05/13/23 Range/Units 16:45 20:48 05:53 Creatinine (0.66-1.25) mg/dL Glucose (74-99) mg/dL POC Glucose (mg/dL) 196 H 197 H 198 H (70-110) mg/dL Total Protein (6.3-8.2) g/dL Albumin (3.5-5.0) g/dL 05/13/23 05/13/23 Range/Units 07:15 11:53 Creatinine 0.53 L (0.66-1.25) mg/dL Glucose 202 H (74-99) mg/dL POC Glucose (mg/dL) 183 H (70-110) mg/dL Total Protein 6.1 L (6.3-8.2) g/dL Albumin 3.3 L (3.5-5.0) g/dL Microbiology - Last 24 Hours (Table) 05/11/23 18:48 Blood Culture - Preliminary Blood
[2023-05-13 14:42] VITALS: BMI 19.0
--- NOTE | 2023-05-13 14:45 | P.PN ---
Subjective Progress Note Date: 05/13/23 HISTORY OF PRESENT ILLNESS: This is a 68-year-old male with a previous medical history significant for hypertension and hypertensive vascular disease, hyperlipidemia, diabetes mellitus type 2, cervical vascular accident distributional of [place] artery pressure weakness, patient presented to the emergency department at [facility] with increased dizziness and recurrent falls,and increased abdominal pain, nausea and vomiting his blood glucose was reading high, he was found to have a blood glucose level of greater than 800, patient was positive for ketones blood in the urine, was diagnosed with diabetic ketoacidosis, he was started on insulin drip as well as IV fluid resuscitation, he was admitted to the hospital for further evaluation and treatment, patient initially had blood gases that showed a PaO2 of 52, therefore the patient went for CT angiography of the chest that was negative for pulmonary embolism, patient was supposed to be started on Jardiance 25 minute gram orally once every day as well as Lipitor 40 mg once every day, and the patient never started dose, I he was supposed to started on low-dose of Ozempic 0.25 mg subcutaneously once every week, which were never done., patient also did ave CT of the brain that was negative for acute but old CVA, 12 Lead EKG showed RBBB with sinus tachycardia, ABGs reviewed and showed mild hypoxemia with a PaO2 52 05/12: Patient is still in the emergency department, he is laying down in bed in no apparent distress, he denies any chest pain, shortness breath, this time he was transitioned from insulin drip to Levemir 18 units at bedtime along with 4 units before each meal 3 times every day, discontinue metformin, discontinue glipizide, await the result of the JOHN antibodies as well as C-peptide level, I'll follow-up with the patient as an outpatient the next 1 or 2 days. [facility] for another 24 hours, if the patient is able to started his with verbal he can be discharged home tomorrow morning. 05/13: Patient is a sitting up in bed in no apparent distress, he denies any chest pain, or shortness breath, history of 11 and today, he started his foot very well, his blood glucose level still slightly elevated, I will increase his Levemir to 22 units of bedtime along with increasing Humalog 5 units before each meal 3 times every day, to the patient very closely for another 24 hours, he can be discharged home tomorrow morning. REVIEW OF SYSTEMS: Constitutional: No documented fever, no chills, no night sweats. No weight change. No weakness, fatigue or lethargy. No daytime sleepiness. HEENT: No headache. No blurred vision or double vision, no loss of vision. No loss of Hearing, no ringing in the ears, no dizziness. No nasal drainage or congestion. No epistaxis. No sore throat. Lungs: mild shortness of breath, no cough, no sputum production. No wheezing. Reports dyspnea with activity. Cardiovascular: No chest pain, no lower extremity edema. No palpitations. No paroxysmal nocturnal dyspnea. No orthopnea. No lightheadedness or dizziness. No syncopal episodes. Abdominal: Reports abdominal pain. positive for nausea, vomiting. No diarrhea. No constipation. No bloody or tarry stools reports loss of appetite. Genitourinary: No dysuria, increased frequency, urgency. No urinary retention. Musculoskeletal: No myalgias. right sided upper and lower extremities muscle weakness, positive for gait dysfunction, positive for frequent falls. No back pain. No neck pain. Integumentary: No wounds, no lesions. No rash or pruritus. No unusual bruising. No change in hair or nails. Neurologic: No aphasia. No facial droop. No change in mentation. No head injury. No headache. No paralysis. No paresthesia. Psychiatric: No depression. No anxiety. No mood swings. Endocrine: No abnormal blood sugars. No weight change. PHYSICAL EXAMINATION: General: 68-year-old male in no apparent distress. HEENT: Head is atraumatic, normocephalic, pupils were equal round reactive to light and recommendation, extraocular muscle movement were intact, sclera nonicteric, conjunctivae were pale, mucous membranes of the mouth are somewhat dry. Neck: Supple, no JVP, normal carotid upstroke bilaterally, no lymphadenopathy. Chest: Decreased breath sounds at the bases, few rhonchi, no expiratory wheezes, no chest wall tenderness, no intercostal retractions. Heart: First heart sound is normal, second heart sound is normal there is systolic ejection murmur 2/6 located at the left sternal border. Abdomen: Soft, nontender, nondistended, positive bowel sounds. Extremities: There is no edema no calf tenderness DP +2 bilaterally. Neurologic examination: Patient is awake alert and oriented X 3, cranial nerves II-12 appear grossly intact, positive for right-sided weakness. ASSESSMENT AND PLAN: 1. Diabetic ketoacidosis. In a patient with uncontrolled diabetes mellitus type 2, his last hemoglobin A1c was 9.7%, continue Levemir and increase the dose to 22 units at bedtime along with the Humalog 5 units before each meal 3 times every day, discontinue metformin and glipizide for now, follow-up with patient as an outpatient. 2. Mixed hyperlipidemia. Continue patient on atorvastatin 40 mg daily, , keep LDL 55-70. 3. Essential hypertension. Monitor the patient very closely, start the patient on losartan 25 mg orally once every day. 4. 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 Patient did have a CT of the brain did not show evidence of acute of normalities which old stroke, continue aspirin 81 mg once every day, atorvastatin 40 mg once every day for secondary stroke prevention. 5. DVT prophylaxis. Lovenox 40 mg subcutaneously every 24 hours. 6. GI prophylaxis. Continue patient on Protonix 40 mg every day. 7. Increase activity. 8. Home tomorrow morning. Objective - Vital Signs Vital signs: Vital Signs Temp 98.0 F 05/13/23 08:00 Pulse 98 05/13/23 08:00 Resp 16 05/13/23 08:00 BP 137/77 05/13/23 08:00 Pulse Ox 96 05/13/23 08:00 FiO2 Intake & Output 05/12/23 05/13/23 05/13/23 18:59 06:59 18:59 Intake Total 29.14 Output Total 400 750 Balance -370.86 -750 Intake: Intake, IV Titration 29.14 Amount Insulin Regular 100 unit 29.14 In Sodium Chloride 0.9% 100 ml @ 0.1 UNITS/KG/HR 6.414 mls/hr IV .[id number] [facility] Rx#:[id number] Output: Urine 400 750 Other: Voiding Method Urinal Urinal Urinal # Voids 1 - Labs CBC & Chem 7: 05/13/23 07:15 05/13/23 07:15 Labs: Abnormal Lab Results - Last 24 Hours (Table) 05/12/23 05/12/23 05/13/23 Range/Units 16:45 20:48 05:53 Creatinine (0.66-1.25) mg/dL Glucose (74-99) mg/dL POC Glucose (mg/dL) 196 H 197 H 198 H (70-110) mg/dL Total Protein (6.3-8.2) g/dL Albumin (3.5-5.0) g/dL 05/13/23 05/13/23 Range/Units 07:15 11:53 Creatinine 0.53 L (0.66-1.25) mg/dL Glucose 202 H (74-99) mg/dL POC Glucose (mg/dL) 183 H (70-110) mg/dL Total Protein 6.1 L (6.3-8.2) g/dL Albumin 3.3 L (3.5-5.0) g/dL Microbiology - Last 24 Hours (Table) 05/11/23 18:48 Blood Culture - Preliminary Blood
[2023-05-13 17:05] LABS: Glucose,Whole Blood 301 mg/dL (70-110)
[2023-05-13 20:11] LABS: Glucose,Whole Blood 321 mg/dL (70-110)
[2023-05-13] MEDS: ATORVASTATIN 40 MG TAB PO SCH (20:50)
[2023-05-14] MEDS ORDERED: INSULIN DETEMIR (LEVEMIR) 100 UNIT/ML SYR SQ SCH (07:00)
[2023-05-14 07:16] LABS: Glucose,Whole Blood 222 mg/dL (70-110)
[2023-05-14] MEDS: ASPIRIN 81 MG PO SCH (08:24)
[2023-05-14] MEDS: ENOXAPARIN 40 MG/0.4 ML SYRINGE SQ SCH (08:24)
[2023-05-14] MEDS: INSULIN ASPART (NovoLOG) 100 UNIT/ML VIAL SQ SCH ×3 (08:24→13:12)
[2023-05-14] MEDS: PANTOPRAZOLE 40 MG TABLET PO SCH (08:24)
[2023-05-14] MEDS ORDERED: LOSARTAN 25 MG TAB PO SCH (10:45)
--- NOTE | 2023-05-14 11:41 | P.DS ---
Providers Date of admission: 05/11/23 19:46 Expected date of discharge: 05/14/23 Attending physician: Naga Webb Primary care physician: Naga Webb Hospital Course: HISTORY OF PRESENT ILLNESS: This is a 68-year-old male with a previous medical history significant for hypertension and hypertensive vascular disease, hyperlipidemia, diabetes mellitus type 2, cervical vascular accident distributional of [place] artery pressure weakness, patient presented to the emergency department at [facility] with increased dizziness and recurrent falls,and increased abdominal pain, nausea and vomiting his blood glucose was reading high, he was found to have a blood glucose level of greater than 800, patient was positive for ketones blood in the urine, was diagnosed with diabetic ketoacidosis, he was started on insulin drip as well as IV fluid resuscitation, he was admitted to the hospital for further evaluation and treatment, patient initially had blood gases that showed a PaO2 of 52, therefore the patient went for CT angiography of the chest that was negative for pulmonary embolism, patient was supposed to be started on Jardiance 25 minute gram orally once every day as well as Lipitor 40 mg once every day, and the patient never started dose, I he was supposed to started on low-dose of Ozempic 0.25 mg subcutaneously once every week, which were never done., patient also did ave CT of the brain that was negative for acute but old CVA, 12 Lead EKG showed RBBB with sinus tachycardia, ABGs reviewed and showed mild hypoxemia with a PaO2 52 05/12: Patient is still in the emergency department, he is laying down in bed in no apparent distress, he denies any chest pain, shortness breath, this time he was transitioned from insulin drip to Levemir 18 units at bedtime along with 4 units before each meal 3 times every day, discontinue metformin, discontinue glipizide, await the result of the JOHN antibodies as well as C-peptide level, I'll follow-up with the patient as an outpatient the next 1 or 2 days. [facility] for another 24 hours, if the patient is able to started his with verbal he can be discharged home tomorrow morning. 05/13: Patient is a sitting up in bed in no apparent distress, he denies any chest pain, or shortness breath, history of 11 and today, he started his foot very well, his blood glucose level still slightly elevated, I will increase his Levemir to 22 units of bedtime along with increasing Humalog 5 units before each meal 3 times every day, to the patient very closely for another 24 hours, he can be discharged home tomorrow morning. 05/14: Patient is feeling better today, his blood glucose level continues to be quite elevated, we'll increase Levemir to 26 units at bedtime along with the Humalog 6 units before each meal, stay off oral medication until the patient is followed with me as an outpatient, continue diabetic diet, monitor the patient very closely. Discharge diagnoses : 1. Diabetic ketoacidosis. 2. Diabetes mellitus type 2 with conversion to type I possibly. 3. Mixed hyperlipidemia. 3. Essential hypertension. 4. 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 5. Gait dysfunction. Patient uses a walker as well as a wheelchair. Patient Condition at Discharge: Fair Plan - Discharge Summary New Discharge Prescriptions: No Action Aspirin 81 mg PO DAILY #30 tab Atorvastatin [Lipitor] 40 mg PO HS metFORMIN HCL [Glucophage] 500 mg PO TID Discharge Medication List Aspirin 81 mg PO DAILY #30 tab 05/20/22 [Rx] Atorvastatin [Lipitor] 40 mg PO HS 05/11/23 [History] metFORMIN HCL [Glucophage] 500 mg PO TID 05/11/23 [History] Follow up Appointment(s)/Referral(s): Naga Webb MD [Primary Care Provider] - 1-2 days
[2023-05-14 12:00] LABS: Glucose,Whole Blood 207 mg/dL (70-110)
[2023-05-14] MEDS ORDERED: INSULIN ASPART (NovoLOG) 100 UNIT/ML VIAL SQ SCH (12:30)
[2023-05-14 12:59] VITALS: BP 103/57; PULSE 99; TEMP 98.6
[2023-05-15] MEDS ORDERED: INSULIN DETEMIR (LEVEMIR) 100 UNIT/ML SYR SQ SCH (07:00)
== END 2023-05-14 14:40 | disposition home health service (06) | DRG 638 ==
LOC: EC 10:19 → 3SCARD 19:46 → 5NMEDONC 05-12 12:06
PROVIDERS: ADMIT Internal Medicine; ATTEND Internal Medicine
DX: E11.10 Type 2 diabetes mellitus with ketoacidosis without coma (principal); I69.351 Hemiplegia and hemiparesis following cerebral infarction affecting right dominant side; Z11.52 Encounter for screening for COVID-19; R29.6 Repeated falls; Z79.84 Long term (current) use of oral hypoglycemic drugs; J44.9 Chronic obstructive pulmonary disease, unspecified; K21.9 Gastro-esophageal reflux disease without esophagitis; I10 Essential (primary) hypertension; R00.0 Tachycardia, unspecified; F17.210 Nicotine dependence, cigarettes, uncomplicated; I45.10 Unspecified right bundle-branch block; Z79.899 Other long term (current) drug therapy; E78.2 Mixed hyperlipidemia; Z79.82 Long term (current) use of aspirin; Z87.01 Personal history of pneumonia (recurrent); Z91.81 History of falling
CPT/HCPCS: 36415; 36600; 70450; 71046; 71275; 80051; 80053; 81003; 82009; 82565; 82805; 82947; 83519; 83605; 83880; 84100; 84484; 84520; 84681; 85025; 85610; 85730; 87040; 87636; 93005; 96361; 96365; 96366; 96367; 96372; 99291

== ENCOUNTER → 2024-04-15 | Outpatient (CLI) | payer MEDICARE ==
--- NOTE | 2024-04-15 10:58 | CTL ---
EXAMINATION TYPE: CT Low Dose Lung DATE OF EXAM ORDERED: 04/15/2024 COMPARISON: 05/11/2023, 04/14/2023 CLINICAL INDICATION: Male, 69 years old with history of Z87.891 personal hx tobacco use; PHH, HISTORY OF SMOKER, Lung cancer screening, History of Smoking/tobacco use. TECHNIQUE: Low dose computed tomography scan was performed through the chest at 1 mm thick sections a nd reconstructed images in multiple planes at 1 mm and [address] DLP: 75.[address] CTDI: 2.2 mGy Automated exposure control for dose reduction was used. CT DIAGNOSTIC QUALITY: Satisfactory FINDINGS: Emphysematous changes with biapical pleural thickening. There is subpleural bilateral 1 to 2 mm pulmo nary micronodules. Groundglass changes seen in the right upper lobe may been the basis of atelectasis or pneumonitis. Ad ditional groundglass changes bilateral lower lobes favor atelectasis or respiratory motion artifact. No pneumothorax. No pleural effusion. The heart is enlarged. Atherosclerotic change of the aorta. Aor ta measures a maximal dimension of 3.5 cm. Trace of pericardial effusion and minimal coronary artery calcification. Small hiatal hernia. Bilateral adrenal thickening is nonspecific could be on the basis of hyperplasia or benign adenoma. Degenerative changes of the spine. Could not exclude subcentimeter thyroid nodules. Artifact limits assessment. IMPRESSION: 1. COPD with groundglass changes involving the right upper lobe could been the basis of an atelectasi s. A pneumonitis not excluded correlate clinically. 2. No suspicious appearing pulmonary mass or nodule. 1 to 2 mm pulmonary subpleural micronodules have a benign appearance. CT LUNG RAD AND CT CHEST RECOMMENDATION: Lung-Rad 2 Benign Appearance or Behavior: Continue annual sc reening with LDCT in 12 months. [facility], , 04/15/2024 10:55 AM
== END | disposition home or self-care (01) ==
LOC: RADCTMAIN 09:48
PROVIDERS: ATTEND Internal Medicine
DX: Z12.2 Encounter for screening for malignant neoplasm of respiratory organs (principal); J44.9 Chronic obstructive pulmonary disease, unspecified; Z87.891 Personal history of nicotine dependence; K44.9 Diaphragmatic hernia without obstruction or gangrene; I70.0 Atherosclerosis of aorta
CPT/HCPCS: 71271